=== PATIENT | male | born 1960 | race Caucasian/White ===

== ENCOUNTER 2018-05-14 14:29 | Emergency (ER) | payer OTHER ==
[~2018-05-14] VITALS: Ht 175.3 cm; Wt 91.7 kg
[~2018-05-14 14:29] MED LIST: ASPI81 PO; FLUO-191 PO; FOLI1 PO; LEVO125 PO; PHEN100C23 PO; PHEN60TA15 PO; THERAGRAN M1 TA1 PO
[2018-05-14] MEDS ORDERED: MAGNESIUM SULFATE 2 GM, MVI, ADULT NO.1 WITH VIT K 10 ML, THIAMINE HCL 100 MG, FOLIC AC... IV ONE ×5 (15:00)
[2018-05-14 15:27] LABS: BASOPHILS % (AUTO) 2.1 % (0.0-2.0); EOSINOPHILS % (AUTO) 1.2 % (1.0-6.0); HEMATOCRIT 38.3 % (41-53); HEMOGLOBIN 12.9 g/dL (13.5-17.5); LYMPHOCYTES # (AUTO) 3.5 K/uL (1.0-4.8); MEAN CORPUSCULAR HEMOGLOBIN 31.5 pg (26.0-34.0); MEAN CORPUSCULAR HGB CONC 33.7 G/dL (31.0-37.0); MEAN CORPUSCULAR VOLUME 94 fL (80-100); MONOCYTES # (AUTO) 0.8 K/uL (0.1-1.0); NEUTROPHILS # (AUTO) 4.9 K/uL (1.8-7.7); NEUTROPHILS % (AUTO) 51.7 % (40.0-70.0); PLATELET COUNT (AUTO) 237 K/uL (150-450); RED BLOOD CELL COUNT(AUTO) 4.09 MIL/uL (4.50-5.90); RED CELL DISTRIBUTION WIDTH 14.5 % (11.5-14.5)
[2018-05-14 15:34] LABS: ANION GAP 12 mmol/L (8-16); CALCIUM, TOTAL 8.5 mg/dL (8.8-10.5); CARBON DIOXIDE 27 mmol/L (22-29); CHLORIDE 108 mmol/L (98-107); CREATININE 0.84 mg/dL (0.60-1.30); GLOMERULAR FILTR. RATE CALC > 60 mL/min (>60); GLUCOSE,RANDOM 86 mg/dL (70-110); POTASSIUM 3.9 mmol/L (3.5-5.1); SODIUM SERUM 147 mmol/L (136-145); UREA NITROGEN, BLOOD 20 mg/dL (7-18)
[2018-05-14 15:40] LABS: ALANINE AMINOTRANSFERASE 38 U/L (12-78); ALBUMIN 3.5 g/dL (3.4-5.0); ALKALINE PHOSPHATASE 104 U/L (46-116); ASPARTATE AMINOTRANSFERASE 33 U/L (15-37); BILIRUBIN,TOTAL 0.2 mg/dL (0.1-1.0); TOTAL PROTEIN, SERUM 7.2 g/dL (6.4-8.2)
[2018-05-15 02:11] VITALS: BP 147/60
== END 2018-05-15 02:39 | disposition home or self-care (01) ==
LOC: EMS 14:30
DX: F10.129 Alcohol abuse with intoxication, unspecified (principal); F17.210 Nicotine dependence, cigarettes, uncomplicated; Z59.0 Homelessness; Z88.0 Allergy status to penicillin; Z79.82 Long term (current) use of aspirin; Y90.8 Blood alcohol level of 240 mg/100 ml or more
CPT/HCPCS: 36415; 80053; 85025; 99283; G0480; J3411; J3475; J3490 ×2; J7030

== ENCOUNTER 2018-06-15 19:02 | Emergency (ER) | payer OTHER ==
[~2018-06-15] VITALS: Ht 172.7 cm; Wt 81.8 kg
[2018-06-15] MEDS ORDERED: PHENY100 PO (19:18)
[2018-06-15 20:47] LABS: BASOPHILS % (AUTO) 1.4 % (0.0-2.0); EOSINOPHILS % (AUTO) 3.4 % (1.0-6.0); HEMATOCRIT 35.8 % (41-53); HEMOGLOBIN 11.8 g/dL (13.5-17.5); LYMPHOCYTES # (AUTO) 2.8 K/uL (1.0-4.8); MEAN CORPUSCULAR HEMOGLOBIN 30.7 pg (26.0-34.0); MEAN CORPUSCULAR VOLUME 93 fL (80-100); MONOCYTES # (AUTO) 0.5 K/uL (0.1-1.0); MONOCYTES % (AUTO) 4.9 % (2.0-9.0); NEUTROPHILS # (AUTO) 7.2 K/uL (1.8-7.7); NEUTROPHILS % (AUTO) 65.3 % (40.0-70.0); PLATELET COUNT (AUTO) 190 K/uL (150-450); RED BLOOD CELL COUNT(AUTO) 3.85 MIL/uL (4.50-5.90); RED CELL DISTRIBUTION WIDTH 15.2 % (11.5-14.5)
[2018-06-15 20:58] LABS: ANION GAP 14 mmol/L (8-16); CALCIUM, TOTAL 8.6 mg/dL (8.8-10.5); CARBON DIOXIDE 22 mmol/L (22-29); CHLORIDE 104 mmol/L (98-107); CREATININE 1.03 mg/dL (0.60-1.30); GLOMERULAR FILTR. RATE CALC > 60 mL/min (>60); GLUCOSE,RANDOM 90 mg/dL (70-110); SODIUM SERUM 140 mmol/L (136-145); UREA NITROGEN, BLOOD 11 mg/dL (7-18)
[2018-06-15 21:04] LABS: ALANINE AMINOTRANSFERASE 15 U/L (12-78); ALKALINE PHOSPHATASE 106 U/L (46-116); ASPARTATE AMINOTRANSFERASE 23 U/L (15-37); BILIRUBIN,TOTAL 0.2 mg/dL (0.1-1.0); PHENYTOIN (DILANTIN) 0.6 mcg/mL (10.0-20.0); TOTAL PROTEIN, SERUM 7.1 g/dL (6.4-8.2)
[2018-06-15] MEDS ORDERED: PHENYTOIN SODIUM 500 MG in SODIUM CHLORIDE 0.9% 100 ML IV ONE (21:45)
[2018-06-15] MEDS ORDERED: SILVER SULFADIAZINE 1% 25 GM CREAM TP ONE (21:45)
[2018-06-15] MEDS ORDERED: SODIUM CHLORIDE 0.9% 1,000 ML IV ONE (21:45)
[2018-06-15 21:58] LABS: APPEARANCE,URINE CLEAR (CLEAR); BILIRUBIN,URINE NEGATIVE (NEGATIVE); GLUCOSE, URINE (UA) NEGATIVE (NEGATIVE); KETONES,URINE NEGATIVE (NEGATIVE); LEUKOCYTE ESTERASE ,URINE NEGATIVE (NEGATIVE); NITRATE,URINE NEGATIVE (NEGATIVE); OCCULT BLOOD,URINE NEGATIVE (NEGATIVE); PH,URINE 5.5 (5.0-8.0); PROTEIN,URINE NEGATIVE (NEGATIVE); UROBILINOGEN,URINE 0.2 mg/dL (<=1.0)
[2018-06-15 22:03] LABS: AMPHET/METH SCREEN,URINE NEGATIVE (NEGATIVE); BARBITURATE SCREEN, URINE NEGATIVE (NEGATIVE); BENZODIAZEPINES SCREEN,URINE NEGATIVE (NEGATIVE); CANNABINOID SCREEN,URINE NEGATIVE (NEGATIVE); COCAINE SCREEN,URINE NEGATIVE (NEGATIVE); METHADONE SCREEN, URINE NEGATIVE (NEGATIVE); OPIATE SCREEN,URINE NEGATIVE (NEGATIVE)
[2018-06-15 22:04] LABS: PHENCYCLIDINE SCREEN,URINE NEGATIVE (NEGATIVE)
[2018-06-16] MEDS ORDERED: KETOROLAC TROMETHAMINE 30 MG/ML VIAL IVP ONE (01:30)
[2018-06-16] MEDS ORDERED: KETOROLAC TROMETHAMINE 60 MG/2 ML VIAL IM ONE (01:45)
[2018-06-16 05:38] VITALS: BP 129/68
== END 2018-06-16 05:51 | disposition home or self-care (01) ==
LOC: EMS 19:03
DX: G40.909 Epilepsy, unspecified, not intractable, without status epilepticus (principal); R45.851 Suicidal ideations; F10.129 Alcohol abuse with intoxication, unspecified; L55.0 Sunburn of first degree; F17.210 Nicotine dependence, cigarettes, uncomplicated; Z59.0 Homelessness; Z88.0 Allergy status to penicillin; Z79.82 Long term (current) use of aspirin
CPT/HCPCS: 36415; 80053; 80185; 80307; 81003; 85025; 93005; 96365; 96372; 99285; G0480; J1165; J1885; J7030; J7050

== ENCOUNTER 2019-01-03 15:12 | Inpatient (IN) | payer MEDICAID ==
[~2019-01-03] VITALS: Ht 172.7 cm; Wt 82.5 kg
[~2019-01-03 15:12] MED LIST changes: -PHEN100C23 PO; +PHENY100 PO
[2019-01-03 18:44] VITALS: BP 141/89
[2019-01-03] MEDS ORDERED: LORazepam 2 MG TABLET PO PRN (19:00)
[2019-01-03] MEDS ORDERED: ZOLPIDEM TARTRATE 10 MG TABLET PO PRN (19:00)
[2019-01-03] MEDS ORDERED: OLANZapine 5 MG RAPDIS TABLET PO PRN (19:00)
[2019-01-03] MEDS ORDERED: INFLUENZA VIRUS VACCINE QVS 2019-20 (3YR+)/PF 60 MCG/0.5 ML SYRINGE IM ONE (20:30)
[2019-01-03 20:35] VITALS: BP 141/79
[2019-01-04] VITALS (9 sets, daily range): BP systolic 130–177; BP diastolic 60–98
[2019-01-04 08:08] LABS: BASOPHILS % (AUTO) 1.2 % (0.0-2.0); EOSINOPHILS % (AUTO) 1.6 % (1.0-6.0); HEMATOCRIT 48.2 % (41-53); HEMOGLOBIN 16.3 g/dL (13.5-17.5); LYMPHOCYTES % (AUTO) 27.9 % (22.0-44.0); MEAN CORPUSCULAR HEMOGLOBIN 32.7 pg (26.0-34.0); MEAN CORPUSCULAR HGB CONC 33.9 G/dL (31.0-37.0); MEAN CORPUSCULAR VOLUME 96 fL (80-100); MONOCYTES # (AUTO) 0.4 K/uL (0.1-1.0); MONOCYTES % (AUTO) 5.3 % (2.0-9.0); NEUTROPHILS # (AUTO) 4.5 K/uL (1.8-7.7); PLATELET COUNT (AUTO) 162 K/uL (150-450); RED CELL DISTRIBUTION WIDTH 17.1 % (11.5-14.5)
[2019-01-04 08:31] LABS: ALBUMIN 3.5 g/dL (3.4-5.0); BILIRUBIN,TOTAL 0.5 mg/dL (0.1-1.0); CALCIUM, TOTAL 9.1 mg/dL (8.8-10.5); CHOL/HDL RATIO 4.3 (4.2-7.3); CREATININE 1.28 mg/dL (0.60-1.30); FREE T4 (FREE THYROXINE) 0.13 ng/dL (0.76-1.46); POTASSIUM 3.9 mmol/L (3.5-5.1); TOTAL PROTEIN, SERUM 7.7 g/dL (6.4-8.2)
[2019-01-04] MEDS ORDERED: FLUoxetine HCL 20 MG CAPSULE PO SCH (09:00)
[2019-01-04 09:53] LABS: THYROID STIMULATING HORMONE 235.84 uIU/mL (0.36-3.74)
[2019-01-04] MEDS ORDERED: LEVOTHYROXINE SODIUM 125 MCG TABLET PO SCH (13:00)
[2019-01-04] MEDS ORDERED: MAGNESIUM HYDROXIDE SUSPENSION 30 ML UDCUP PO PRN (13:30)
[2019-01-04] MEDS ORDERED: PROMETHAZINE HCL 25 MG TABLET PO PRN (13:30)
[2019-01-04] MEDS ORDERED: DIAZEPAM 10 MG TABLET PO ONE (13:30)
[2019-01-04] MEDS ORDERED: MAG HYDROX/AL HYDROX/SIMETH ES 30 ML SUSPENSION UDCUP PO PRN (13:30)
[2019-01-04] MEDS ORDERED: CYANOCOBALAMIN 1,000 MCG/ML VIAL IM ONE (13:30)
[2019-01-04] MEDS ORDERED: LOPERAMIDE HCL 2 MG CAPSULE PO PRN (13:30)
[2019-01-04] MEDS ORDERED: GuaiFENesin/D-METHORPHAN [SUGAR-FREE] 200-20MG/10 ML SYRUP UDCUP PO PRN (13:30)
[2019-01-04] MEDS ORDERED: ACETAMINOPHEN 325 MG TABLET PO PRN (13:30)
[2019-01-04] MEDS ORDERED: DIAZEPAM 10 MG TABLET PO PRN (13:30)
[2019-01-04] MEDS ORDERED: TUBERCULIN, PURIFIED PROTEIN DERIVATIVE 5 TU/0.1 ML SYRINGE ID ONE (13:30)
[2019-01-04] MEDS ORDERED: HydrOXYzine PAMOATE 50 MG CAPSULE PO PRN (13:30)
[2019-01-04] MEDS: CloNIDine HCL 0.1 MG TABLET PO SCH (16:23)
[2019-01-04] MEDS: THIAMINE HCL 100 MG TABLET PO SCH (16:23)
[2019-01-04] MEDS: GABAPENTIN 300 MG CAPSULE PO SCH ×2 (20:34→21:35)
[2019-01-04] MEDS ORDERED: SERTRALINE HCL 50 MG TABLET PO SCH (21:00)
[2019-01-04] MEDS ORDERED: DIVALPROEX SODIUM 500 MG ER TABLET PO SCH (21:00)
[2019-01-05 00:30] VITALS: BP 146/72
[2019-01-05 04:30] VITALS: BP 142/70
[2019-01-05 05:12] VITALS: BP 146/72
[2019-01-05] MEDS ORDERED: DIAZEPAM 10 MG TABLET PO PRN (07:00)
[2019-01-05] MEDS ORDERED: ALBUTEROL SULFATE HFA 90 MCG/PUFF 8 GM INHALER IH PRN (08:00)
[2019-01-05 08:05] VITALS: BP 131/82
[2019-01-05] MEDS: THIAMINE HCL 100 MG TABLET PO SCH (08:25)
[2019-01-05] MEDS: DIAZEPAM 10 MG TABLET PO SCH ×2 (08:25→12:25)
[2019-01-05] MEDS: CloNIDine HCL 0.1 MG TABLET PO SCH (08:25)
[2019-01-05] MEDS: GABAPENTIN 300 MG CAPSULE PO SCH ×2 (08:25→12:25)
[2019-01-05 08:31] VITALS: BP 131/82
[2019-01-05] MEDS ORDERED: NALTREXONE HCL 50 MG TABLET PO SCH (09:00)
[2019-01-05] MEDS ORDERED: FOLIC ACID 1 MG TABLET PO SCH (09:00)
[2019-01-05] MEDS ORDERED: MULTIVITAMINS WITH MINERALS, THERAPEUTIC TABLET PO SCH (09:00)
[2019-01-05 13:21] VITALS: BP 138/78
[2019-01-07] MEDS ORDERED: DIAZEPAM 5 MG TABLET PO PRN (07:00)
[2019-01-07] MEDS ORDERED: DIAZEPAM 5 MG TABLET PO SCH (09:00)
[2019-01-07] MEDS ORDERED: LOPERAMIDE HCL 2 MG CAPSULE PO PRN (13:30)
[2019-01-08] MEDS ORDERED: DIAZEPAM 5 MG TABLET PO PRN (07:00)
== END 2019-01-05 15:00 | disposition still patient (30) | DRG 751 ==
LOC: B2S 20:22 → UNDODISIN 01-06 15:00
PROVIDERS: ADMIT Psychiatry & Neurology Psychiatry; ATTEND Psychiatry & Neurology Psychiatry
DX: F33.2 Major depressive disorder, recurrent severe without psychotic features (principal); F20.9 Schizophrenia, unspecified; G40.409 Other generalized epilepsy and epileptic syndromes, not intractable, without status epilepticus; E03.9 Hypothyroidism, unspecified; F17.210 Nicotine dependence, cigarettes, uncomplicated; F15.90 Other stimulant use, unspecified, uncomplicated; Z91.19 Patient's noncompliance with other medical treatment and regimen; Z59.0 Homelessness; Z28.21 Immunization not carried out because of patient refusal; Z88.0 Allergy status to penicillin
CPT/HCPCS: 83036; 84439; 84443; 87081; J3420; J3535

== ENCOUNTER 2019-01-05 14:29 | Inpatient (IN) | payer MEDICAID, OTHER ==
[~2019-01-05] VITALS: Ht 172.7 cm; Wt 84.3 kg
[2019-01-05] MEDS ORDERED: ASPIRIN 81 MG CHEWABLE TABLET PO ONE (15:00)
[2019-01-05 16:01] LABS: HEMATOCRIT 50.7 % (41-53); HEMOGLOBIN 16.9 g/dL (13.5-17.5); MEAN CORPUSCULAR HEMOGLOBIN 32.2 pg (26.0-34.0); MEAN CORPUSCULAR HGB CONC 33.3 G/dL (31.0-37.0); MEAN CORPUSCULAR VOLUME 97 fL (80-100); RED BLOOD CELL COUNT(AUTO) 5.23 MIL/uL (4.50-5.90); RED CELL DISTRIBUTION WIDTH 17.1 % (11.5-14.5)
[2019-01-05 16:05] LABS: ANION GAP 4 mmol/L (8-16); CALCIUM, TOTAL 9.4 mg/dL (8.8-10.5); CARBON DIOXIDE 29 mmol/L (22-29); CHLORIDE 103 mmol/L (98-107); CREATININE 1.23 mg/dL (0.60-1.30); GLOMERULAR FILTR. RATE CALC > 60 mL/min (>60); GLUCOSE,RANDOM 99 mg/dL (70-110); POTASSIUM 4.9 mmol/L (3.5-5.1); SODIUM SERUM 136 mmol/L (136-145); UREA NITROGEN, BLOOD 22 mg/dL (7-18)
[2019-01-05 16:10] LABS: APPEARANCE,URINE CLEAR (CLEAR); BILIRUBIN,URINE NEGATIVE (NEGATIVE); GLUCOSE, URINE (UA) NEGATIVE (NEGATIVE); KETONES,URINE NEGATIVE (NEGATIVE); LEUKOCYTE ESTERASE ,URINE NEGATIVE (NEGATIVE); NITRATE,URINE NEGATIVE (NEGATIVE); OCCULT BLOOD,URINE NEGATIVE (NEGATIVE); PROTEIN,URINE NEGATIVE (NEGATIVE); UROBILINOGEN,URINE 0.2 mg/dL (<=1.0)
[2019-01-05 16:12] LABS: AMPHET/METH SCREEN,URINE NEGATIVE (NEGATIVE); BARBITURATE SCREEN, URINE NEGATIVE (NEGATIVE); BENZODIAZEPINES SCREEN,URINE POSITIVE (NEGATIVE); CANNABINOID SCREEN,URINE NEGATIVE (NEGATIVE); COCAINE SCREEN,URINE NEGATIVE (NEGATIVE); METHADONE SCREEN, URINE NEGATIVE (NEGATIVE); OPIATE SCREEN,URINE NEGATIVE (NEGATIVE)
[2019-01-05 16:16] LABS: PHENCYCLIDINE SCREEN,URINE NEGATIVE (NEGATIVE)
[2019-01-05 16:22] LABS: BAND NEUTROPHILS % (MANUAL) 2 % (0-5); BASOPHILS % (MANUAL) 2 % (0-2); EOSINOPHILS % (MANUAL) 3 % (1-6); LYMPHOCYTES % (MANUAL) 21 % (22-44); MONOCYTES % (MANUAL) 2 % (2-9); REACTIVE LYMPHOCYTES 13 % (0-0); SEGMENTED NEUTROPHILS % 57 % (40-70)
[2019-01-05 16:23] LABS: PLATELET COUNT (AUTO) 111 K/uL (150-450); PLATELET MORPHOLOGY COMMENT DECREASED
[2019-01-05 16:26] LABS: B-TYPE NATRIURETIC PEPTIDE 416 pg/mL (0-100)
[2019-01-05 16:30] LABS: ALANINE AMINOTRANSFERASE 22 U/L (12-78); ALBUMIN 3.5 g/dL (3.4-5.0); ALKALINE PHOSPHATASE 98 U/L (46-116); ASPARTATE AMINOTRANSFERASE 36 U/L (15-37); BILIRUBIN,TOTAL 0.5 mg/dL (0.1-1.0); CREATINE KINASE, TOTAL ONLY 194 U/L (39-308); PHENYTOIN (DILANTIN) 0.9 mcg/mL (10.0-20.0); TOTAL PROTEIN, SERUM 7.5 g/dL (6.4-8.2)
[2019-01-05 16:35] LABS: PHENOBARBITAL < 1 mcg/mL (15-40)
[2019-01-05] MEDS ORDERED: ACETAMINOPHEN 325 MG TABLET PO PRN ×2 (18:45→20:45)
[2019-01-05] MEDS ORDERED: ONDANSETRON HCL 4 MG/2 ML VIAL IVP PRN ×2 (18:45→20:45)
[2019-01-05] MEDS ORDERED: 0.9% SODIUM CHLORIDE 10 ML SYRINGE IVP PRN (18:45)
[2019-01-05 19:30] VITALS: BP 132/69
[2019-01-05] MEDS ORDERED: BISACODYL 10 MG RECTAL RECTAL SUPPOSITORY PR PRN (20:45)
[2019-01-05] MEDS ORDERED: MAGNESIUM HYDROXIDE SUSPENSION 30 ML UDCUP PO PRN (20:45)
[2019-01-05] MEDS ORDERED: ZOLPIDEM TARTRATE 5 MG TABLET PO PRN (20:45)
[2019-01-05] MEDS: DOCUSATE SODIUM 100 MG CAPSULE PO SCH (21:55)
[2019-01-05] MEDS: ASPIRIN 81 MG CHEWABLE TABLET PO SCH (21:56)
[2019-01-05] MEDS: PHENYTOIN SODIUM 100 MG ER CAPSULE PO SCH (21:56)
[2019-01-05] MEDS ORDERED: PNEUMOCOCCAL VACCINE POLYVALENT 0.5 ML VIAL [PPSV23] IM ONE (23:15)
[2019-01-05] MEDS ORDERED: INFLUENZA VIRUS VACCINE QVS 2019-20 (3YR+)/PF 60 MCG/0.5 ML SYRINGE IM ONE (23:15)
[2019-01-06 00:03] VITALS: BP 128/59
[2019-01-06 04:43] VITALS: BP 140/66
[2019-01-06] MEDS: LEVOTHYROXINE SODIUM 125 MCG TABLET PO SCH (06:06)
[2019-01-06 07:16] LABS: HEMOGLOBIN A1C 5.1 % (4.5-6.2)
[2019-01-06 07:32] LABS: CHOL/HDL RATIO 4.4 (4.2-7.3); FREE T4 (FREE THYROXINE) 0.23 ng/dL (0.76-1.46)
[2019-01-06 07:58] LABS: THYROID STIMULATING HORMONE 210.76 uIU/mL (0.36-3.74)
[2019-01-06] MEDS: HEPARIN SODIUM,PORCINE 5,000 UNITS/ML VIAL SQ SCH ×4 (08:00→23:48)
[2019-01-06 08:27] VITALS: BP 151/81
[2019-01-06] MEDS: MULTIVITAMINS WITH MINERALS, THERAPEUTIC TABLET PO SCH (09:05)
[2019-01-06] MEDS: ASPIRIN 81 MG CHEWABLE TABLET PO SCH ×2 (09:05→20:29)
[2019-01-06] MEDS: DOCUSATE SODIUM 100 MG CAPSULE PO SCH ×2 (09:05→20:29)
[2019-01-06] MEDS: PANTOPRAZOLE SODIUM 40 MG DR TABLET PO SCH (09:05)
[2019-01-06] MEDS: FOLIC ACID 1 MG TABLET PO SCH (09:05)
[2019-01-06] MEDS ORDERED: LEVOTHYROXINE SODIUM 125 MCG TABLET PO SCH (10:15)
[2019-01-06] MEDS: SODIUM CHLORIDE 0.9% 1,000 ML IV SCH (13:34)
[2019-01-06 16:25] VITALS: BP 158/74
[2019-01-06 19:43] VITALS: BP 168/76
[2019-01-06] MEDS: PHENYTOIN SODIUM 100 MG ER CAPSULE PO SCH (20:29)
[2019-01-06 23:43] VITALS: BP 141/84
[2019-01-07] MEDS: SODIUM CHLORIDE 0.9% 1,000 ML IV SCH (02:33)
[2019-01-07 03:13] VITALS: BP 153/76
[2019-01-07] MEDS: LEVOTHYROXINE SODIUM 125 MCG TABLET PO SCH (06:19)
[2019-01-07 06:24] LABS: CHOL/HDL RATIO 4.4 (4.2-7.3)
[2019-01-07 07:40] VITALS: BP 158/82
[2019-01-07] MEDS: HEPARIN SODIUM,PORCINE 5,000 UNITS/ML VIAL SQ SCH ×2 (08:00→16:00)
[2019-01-07] MEDS: DOCUSATE SODIUM 100 MG CAPSULE PO SCH ×2 (09:00→21:04)
[2019-01-07] MEDS: ASPIRIN 81 MG CHEWABLE TABLET PO SCH ×2 (09:27→21:03)
[2019-01-07] MEDS: SERTRALINE HCL 50 MG TABLET PO SCH (09:28)
[2019-01-07] MEDS: PANTOPRAZOLE SODIUM 40 MG DR TABLET PO SCH (09:28)
[2019-01-07] MEDS: MULTIVITAMINS WITH MINERALS, THERAPEUTIC TABLET PO SCH (09:28)
[2019-01-07] MEDS: FOLIC ACID 1 MG TABLET PO SCH (09:28)
[2019-01-07 13:39] VITALS: BP 142/54
[2019-01-07] MEDS: ATORVASTATIN CALCIUM 20 MG TABLET PO SCH (14:03)
[2019-01-07] MEDS: METOPROLOL SUCCINATE 25 MG ER TABLET PO SCH (14:03)
[2019-01-07] MEDS: IPRATROPIUM BROMIDE 0.5 MG/2.5 ML NEB SOLUTION NEB SCH ×3 (15:17→22:39)
[2019-01-07] MEDS: ALBUTEROL SULFATE 2.5 MG/0.5 ML NEB SOLUTION NEB SCH ×3 (15:17→22:39)
[2019-01-07 16:22] VITALS: BP 142/56
[2019-01-07] MEDS ORDERED: DIAZEPAM 5 MG TABLET PO ONE (17:30)
[2019-01-07 19:37] VITALS: BP 136/69
[2019-01-07] MEDS: DIAZEPAM 5 MG TABLET PO PRN (21:04)
[2019-01-07] MEDS: PHENYTOIN SODIUM 100 MG ER CAPSULE PO SCH (21:04)
[2019-01-07 23:47] VITALS: BP 153/71
[2019-01-08] MEDS: ALBUTEROL SULFATE 2.5 MG/0.5 ML NEB SOLUTION NEB SCH ×6 (04:09→23:17)
[2019-01-08] MEDS: IPRATROPIUM BROMIDE 0.5 MG/2.5 ML NEB SOLUTION NEB SCH ×6 (04:09→23:17)
[2019-01-08 04:34] VITALS: BP 141/70
[2019-01-08] MEDS: LEVOTHYROXINE SODIUM 125 MCG TABLET PO SCH (05:44)
[2019-01-08] MEDS: ASPIRIN 81 MG CHEWABLE TABLET PO SCH ×2 (05:45→21:10)
[2019-01-08] MEDS: DIAZEPAM 5 MG TABLET PO PRN (05:45)
[2019-01-08 08:00] VITALS: BP 138/74
[2019-01-08] MEDS: HEPARIN SODIUM,PORCINE 5,000 UNITS/ML VIAL SQ SCH ×3 (08:00→15:44)
[2019-01-08] MEDS: SERTRALINE HCL 50 MG TABLET PO SCH (08:56)
[2019-01-08] MEDS: DOCUSATE SODIUM 100 MG CAPSULE PO SCH ×2 (08:56→21:10)
[2019-01-08] MEDS: FOLIC ACID 1 MG TABLET PO SCH (08:56)
[2019-01-08] MEDS: PANTOPRAZOLE SODIUM 40 MG DR TABLET PO SCH (08:56)
[2019-01-08] MEDS: MULTIVITAMINS WITH MINERALS, THERAPEUTIC TABLET PO SCH (08:56)
[2019-01-08] MEDS: METOPROLOL SUCCINATE 25 MG ER TABLET PO SCH (08:56)
[2019-01-08] MEDS: ATORVASTATIN CALCIUM 20 MG TABLET PO SCH (08:57)
[2019-01-08 12:21] VITALS: BP 133/70
[2019-01-08 16:56] VITALS: BP 145/83
[2019-01-08 19:36] VITALS: BP 153/82
[2019-01-08] MEDS: PHENYTOIN SODIUM 100 MG ER CAPSULE PO SCH (21:10)
[2019-01-09] VITALS (7 sets, daily range): BP systolic 139–149; BP diastolic 72–89
[2019-01-09] MEDS: ALBUTEROL SULFATE 2.5 MG/0.5 ML NEB SOLUTION NEB SCH ×6 (03:16→23:11)
[2019-01-09] MEDS: IPRATROPIUM BROMIDE 0.5 MG/2.5 ML NEB SOLUTION NEB SCH ×6 (03:16→23:11)
[2019-01-09] MEDS: LEVOTHYROXINE SODIUM 125 MCG TABLET PO SCH (05:56)
[2019-01-09 07:01] LABS: BASOPHILS % (AUTO) 3.6 % (0.0-2.0); EOSINOPHILS % (AUTO) 2.2 % (1.0-6.0); HEMATOCRIT 44.2 % (41-53); LYMPHOCYTES # (AUTO) 1.9 K/uL (1.0-4.8); LYMPHOCYTES % (AUTO) 32.2 % (22.0-44.0); MEAN CORPUSCULAR HEMOGLOBIN 32.7 pg (26.0-34.0); MEAN CORPUSCULAR HGB CONC 33.9 G/dL (31.0-37.0); MEAN CORPUSCULAR VOLUME 97 fL (80-100); MONOCYTES # (AUTO) 0.5 K/uL (0.1-1.0); NEUTROPHILS # (AUTO) 3.2 K/uL (1.8-7.7); PLATELET COUNT (AUTO) 161 K/uL (150-450); RED BLOOD CELL COUNT(AUTO) 4.57 MIL/uL (4.50-5.90); RED CELL DISTRIBUTION WIDTH 16.1 % (11.5-14.5)
[2019-01-09 07:17] LABS: ALANINE AMINOTRANSFERASE 18 U/L (12-78); ALBUMIN 3.5 g/dL (3.4-5.0); ALKALINE PHOSPHATASE 87 U/L (46-116); ANION GAP 6 mmol/L (8-16); ASPARTATE AMINOTRANSFERASE 22 U/L (15-37); BILIRUBIN,TOTAL 0.4 mg/dL (0.1-1.0); CALCIUM, TOTAL 8.8 mg/dL (8.8-10.5); CARBON DIOXIDE 29 mmol/L (22-29); CHLORIDE 103 mmol/L (98-107); CREATININE 1.14 mg/dL (0.60-1.30); GLOMERULAR FILTR. RATE CALC > 60 mL/min (>60); GLUCOSE,RANDOM 84 mg/dL (70-110); POTASSIUM 4.6 mmol/L (3.5-5.1); SODIUM SERUM 138 mmol/L (136-145); TOTAL PROTEIN, SERUM 7.3 g/dL (6.4-8.2); UREA NITROGEN, BLOOD 18 mg/dL (7-18)
[2019-01-09] MEDS: FOLIC ACID 1 MG TABLET PO SCH (08:28)
[2019-01-09] MEDS: DOCUSATE SODIUM 100 MG CAPSULE PO SCH ×2 (08:28→20:55)
[2019-01-09] MEDS: ASPIRIN 81 MG CHEWABLE TABLET PO SCH ×2 (08:28→20:55)
[2019-01-09] MEDS: ATORVASTATIN CALCIUM 20 MG TABLET PO SCH (08:29)
[2019-01-09] MEDS: METOPROLOL SUCCINATE 25 MG ER TABLET PO SCH (08:29)
[2019-01-09] MEDS: MULTIVITAMINS WITH MINERALS, THERAPEUTIC TABLET PO SCH (08:29)
[2019-01-09] MEDS: PANTOPRAZOLE SODIUM 40 MG DR TABLET PO SCH (08:29)
[2019-01-09] MEDS: SERTRALINE HCL 50 MG TABLET PO SCH (08:30)
[2019-01-09] MEDS: HEPARIN SODIUM,PORCINE 5,000 UNITS/ML VIAL SQ SCH ×4 (08:31→23:12)
[2019-01-09] MEDS: PHENYTOIN SODIUM 100 MG ER CAPSULE PO SCH (20:55)
[2019-01-10] MEDS: DIAZEPAM 5 MG TABLET PO PRN ×2 (01:15→08:40)
[2019-01-10] MEDS: IPRATROPIUM BROMIDE 0.5 MG/2.5 ML NEB SOLUTION NEB SCH ×3 (03:00→11:30)
[2019-01-10] MEDS: ALBUTEROL SULFATE 2.5 MG/0.5 ML NEB SOLUTION NEB SCH ×3 (03:00→11:30)
[2019-01-10 04:41] VITALS: BP 156/69
[2019-01-10] MEDS: LEVOTHYROXINE SODIUM 125 MCG TABLET PO SCH (06:09)
[2019-01-10 07:51] VITALS: BP 153/96
[2019-01-10] MEDS: SERTRALINE HCL 50 MG TABLET PO SCH (08:40)
[2019-01-10] MEDS: DOCUSATE SODIUM 100 MG CAPSULE PO SCH (08:40)
[2019-01-10] MEDS: ATORVASTATIN CALCIUM 20 MG TABLET PO SCH (08:40)
[2019-01-10] MEDS: ASPIRIN 81 MG CHEWABLE TABLET PO SCH (08:40)
[2019-01-10] MEDS: PANTOPRAZOLE SODIUM 40 MG DR TABLET PO SCH (08:40)
[2019-01-10] MEDS: HEPARIN SODIUM,PORCINE 5,000 UNITS/ML VIAL SQ SCH (08:41)
[2019-01-10] MEDS: METOPROLOL SUCCINATE 25 MG ER TABLET PO SCH (08:43)
[2019-01-10] MEDS: FOLIC ACID 1 MG TABLET PO SCH (08:44)
[2019-01-10] MEDS: MULTIVITAMINS WITH MINERALS, THERAPEUTIC TABLET PO SCH (08:44)
[2019-01-10 11:44] VITALS: BP 138/80
== END 2019-01-10 13:30 | DRG 812 ==
LOC: EMS 14:30 → 5N 16:56 → 5S 22:24 → 4E 01-09 21:10
PROVIDERS: ADMIT Internal Medicine; ATTEND Hospitalist
DX: T42.4X1A Poisoning by benzodiazepines, accidental (unintentional), initial encounter (principal); G92 Toxic encephalopathy; I50.21 Acute systolic (congestive) heart failure; K74.60 Unspecified cirrhosis of liver; E03.9 Hypothyroidism, unspecified; G40.909 Epilepsy, unspecified, not intractable, without status epilepticus; R00.1 Bradycardia, unspecified; E78.5 Hyperlipidemia, unspecified; I25.10 Atherosclerotic heart disease of native coronary artery without angina pectoris; J44.9 Chronic obstructive pulmonary disease, unspecified; F32.9 Major depressive disorder, single episode, unspecified; F17.210 Nicotine dependence, cigarettes, uncomplicated; I11.0 Hypertensive heart disease with heart failure; I25.2 Old myocardial infarction; Y92.89 Other specified places as the place of occurrence of the external cause; Z86.73 Personal history of transient ischemic attack (TIA), and cerebral infarction without residual deficits; Z88.0 Allergy status to penicillin; Z79.82 Long term (current) use of aspirin; Z79.899 Other long term (current) drug therapy
CPT/HCPCS: 70450; 83036; 83735; 84439; 84443; 86592; 87081; 93005; 93306; 94640; 97110; 97116; 97162; 97166; 97530; 97535; G0378; G0480; J1644; J3411; J3475; J3490; J7030

== ENCOUNTER 2019-01-10 13:07 | Inpatient (IN) | payer MEDICAID ==
[~2019-01-10] VITALS: Ht 172.7 cm; Wt 73.5 kg
[2019-01-10] MEDS ORDERED: HALOPERIDOL 5 MG TABLET PO PRN (15:15)
[2019-01-10] MEDS ORDERED: LORazepam 2 MG TABLET PO PRN (15:15)
[2019-01-10] MEDS ORDERED: LOPERAMIDE HCL 2 MG CAPSULE PO PRN (16:00)
[2019-01-10] MEDS ORDERED: GuaiFENesin/D-METHORPHAN [SUGAR-FREE] 200-20MG/10 ML SYRUP UDCUP PO PRN (16:00)
[2019-01-10] MEDS ORDERED: PROMETHAZINE HCL 25 MG TABLET PO PRN (16:00)
[2019-01-10] MEDS ORDERED: MAG HYDROX/AL HYDROX/SIMETH ES 30 ML SUSPENSION UDCUP PO PRN (16:00)
[2019-01-10] MEDS ORDERED: GABAPENTIN 300 MG CAPSULE PO PRN (16:00)
[2019-01-10] MEDS ORDERED: MAGNESIUM HYDROXIDE SUSPENSION 30 ML UDCUP PO PRN (16:00)
[2019-01-10] MEDS: GABAPENTIN 300 MG CAPSULE PO SCH (19:46)
[2019-01-10] MEDS: THIAMINE HCL 100 MG TABLET PO SCH (19:46)
[2019-01-11] MEDS ORDERED: INFLUENZA VIRUS VACCINE QVS 2019-20 (3YR+)/PF 60 MCG/0.5 ML SYRINGE IM ONE (07:15)
[2019-01-11] MEDS ORDERED: PNEUMOCOCCAL VACCINE POLYVALENT 0.5 ML VIAL [PPSV23] IM ONE (07:15)
[2019-01-11 09:54] VITALS: BP 127/57
[2019-01-11] MEDS: GABAPENTIN 300 MG CAPSULE PO SCH ×4 (10:30→22:02)
[2019-01-11] MEDS: MULTIVITAMINS WITH MINERALS, THERAPEUTIC TABLET PO SCH (10:32)
[2019-01-11] MEDS: SERTRALINE HCL 50 MG TABLET PO SCH (10:32)
[2019-01-11] MEDS: THIAMINE HCL 100 MG TABLET PO SCH ×2 (10:32→17:14)
[2019-01-11] MEDS: NALTREXONE HCL 50 MG TABLET PO SCH (10:33)
[2019-01-11] MEDS: FOLIC ACID 1 MG TABLET PO SCH (10:33)
[2019-01-11 17:56] VITALS: BP 121/57
[2019-01-11 18:13] VITALS: BP 129/82
[2019-01-11 18:35] LABS: GLUCOMETER DEV NAME(LOC) 3EX.; GLUCOSE,POINT OF CARE 127 MG/DL (70-110)
[2019-01-11 18:50] VITALS: BP 124/58
[2019-01-11] MEDS: ACETAMINOPHEN 325 MG TABLET PO PRN (18:50)
[2019-01-11] MEDS: MECLIZINE HCL 25 MG TABLET PO SCH (22:01)
[2019-01-11] MEDS: DIVALPROEX SODIUM 500 MG ER TABLET PO SCH (22:01)
[2019-01-11] MEDS: PHENYTOIN SODIUM 100 MG ER CAPSULE PO SCH (22:02)
[2019-01-12] MEDS: ZOLPIDEM TARTRATE 10 MG TABLET PO PRN (00:02)
[2019-01-12 00:03] VITALS: BP 115/68
[2019-01-12] MEDS: LEVOTHYROXINE SODIUM 125 MCG TABLET PO SCH (06:47)
[2019-01-12 08:00] VITALS: BP 146/98
[2019-01-12] MEDS: SERTRALINE HCL 50 MG TABLET PO SCH (08:53)
[2019-01-12] MEDS: GABAPENTIN 300 MG CAPSULE PO SCH ×4 (08:53→20:36)
[2019-01-12] MEDS: NALTREXONE HCL 50 MG TABLET PO SCH (08:53)
[2019-01-12] MEDS: MULTIVITAMINS WITH MINERALS, THERAPEUTIC TABLET PO SCH (08:53)
[2019-01-12] MEDS: THIAMINE HCL 100 MG TABLET PO SCH ×2 (08:53→16:27)
[2019-01-12] MEDS: FOLIC ACID 1 MG TABLET PO SCH (08:54)
[2019-01-12 17:00] VITALS: BP 131/85
[2019-01-12] MEDS: DIVALPROEX SODIUM 500 MG ER TABLET PO SCH (20:35)
[2019-01-12] MEDS: PHENYTOIN SODIUM 100 MG ER CAPSULE PO SCH (20:35)
[2019-01-12] MEDS: MECLIZINE HCL 25 MG TABLET PO SCH (20:36)
[2019-01-13 05:51] VITALS: BP 121/52
[2019-01-13] MEDS: LEVOTHYROXINE SODIUM 125 MCG TABLET PO SCH (06:45)
[2019-01-13 08:03] VITALS: BP 129/75
[2019-01-13] MEDS: FOLIC ACID 1 MG TABLET PO SCH (09:43)
[2019-01-13] MEDS: THIAMINE HCL 100 MG TABLET PO SCH ×2 (09:43→16:36)
[2019-01-13] MEDS: NALTREXONE HCL 50 MG TABLET PO SCH (09:43)
[2019-01-13] MEDS: MULTIVITAMINS WITH MINERALS, THERAPEUTIC TABLET PO SCH (09:43)
[2019-01-13] MEDS: SERTRALINE HCL 50 MG TABLET PO SCH (09:44)
[2019-01-13] MEDS: GABAPENTIN 300 MG CAPSULE PO SCH ×4 (09:44→20:38)
[2019-01-13] MEDS: HydrOXYzine PAMOATE 50 MG CAPSULE PO PRN (16:35)
[2019-01-13 16:41] VITALS: BP 139/52
[2019-01-13] MEDS: PHENYTOIN SODIUM 100 MG ER CAPSULE PO SCH (20:38)
[2019-01-13] MEDS: DIVALPROEX SODIUM 500 MG ER TABLET PO SCH (20:38)
[2019-01-13] MEDS: MECLIZINE HCL 25 MG TABLET PO SCH (20:38)
[2019-01-14 05:57] VITALS: BP 127/66
[2019-01-14] MEDS: LEVOTHYROXINE SODIUM 125 MCG TABLET PO SCH (06:42)
[2019-01-14 08:00] VITALS: BP 128/76
[2019-01-14] MEDS: NALTREXONE HCL 50 MG TABLET PO SCH (09:27)
[2019-01-14] MEDS: QUEtiapine FUMARATE 100 MG TABLET PO PRN (09:27)
[2019-01-14] MEDS: MULTIVITAMINS WITH MINERALS, THERAPEUTIC TABLET PO SCH (09:27)
[2019-01-14] MEDS: FOLIC ACID 1 MG TABLET PO SCH (09:27)
[2019-01-14] MEDS: THIAMINE HCL 100 MG TABLET PO SCH ×2 (09:27→16:17)
[2019-01-14] MEDS: GABAPENTIN 300 MG CAPSULE PO SCH ×4 (09:27→20:20)
[2019-01-14] MEDS: SERTRALINE HCL 50 MG TABLET PO SCH (09:28)
[2019-01-14] MEDS ORDERED: DiphenhydrAMINE HCL 50 MG/ML VIAL IM ONE (12:35)
[2019-01-14] MEDS ORDERED: HALOPERIDOL LACTATE 5 MG/ML VIAL IM ONE (12:35)
[2019-01-14] MEDS ORDERED: LORazepam 2 MG/ML VIAL IM ONE (12:35)
[2019-01-14 13:48] VITALS: BP 126/75
[2019-01-14 18:41] VITALS: BP 127/68
[2019-01-14] MEDS: MECLIZINE HCL 25 MG TABLET PO SCH (20:20)
[2019-01-14] MEDS: DIVALPROEX SODIUM 500 MG ER TABLET PO SCH (20:21)
[2019-01-14] MEDS: PHENYTOIN SODIUM 100 MG ER CAPSULE PO SCH (20:21)
[2019-01-15] MEDS: ZOLPIDEM TARTRATE 10 MG TABLET PO PRN (02:44)
[2019-01-15 02:58] VITALS: BP 136/81
[2019-01-15] MEDS: LEVOTHYROXINE SODIUM 125 MCG TABLET PO SCH (06:59)
[2019-01-15 08:20] VITALS: BP 158/71
[2019-01-15] MEDS: QUEtiapine FUMARATE 100 MG TABLET PO PRN (10:08)
[2019-01-15] MEDS: MULTIVITAMINS WITH MINERALS, THERAPEUTIC TABLET PO SCH (10:08)
[2019-01-15] MEDS: HydrOXYzine PAMOATE 50 MG CAPSULE PO PRN (10:08)
[2019-01-15] MEDS: FOLIC ACID 1 MG TABLET PO SCH (10:08)
[2019-01-15] MEDS: GABAPENTIN 300 MG CAPSULE PO SCH ×4 (10:08→20:54)
[2019-01-15] MEDS: NALTREXONE HCL 50 MG TABLET PO SCH (10:08)
[2019-01-15] MEDS: THIAMINE HCL 100 MG TABLET PO SCH ×2 (10:08→17:28)
[2019-01-15] MEDS: SERTRALINE HCL 50 MG TABLET PO SCH (10:08)
[2019-01-15] MEDS: DIVALPROEX SODIUM 500 MG ER TABLET PO SCH (20:54)
[2019-01-15] MEDS: PHENYTOIN SODIUM 100 MG ER CAPSULE PO SCH (20:54)
[2019-01-15] MEDS: MECLIZINE HCL 25 MG TABLET PO SCH (20:54)
[2019-01-16 03:28] VITALS: BP 121/76
[2019-01-16] MEDS: LEVOTHYROXINE SODIUM 125 MCG TABLET PO SCH (07:02)
[2019-01-16 08:00] VITALS: BP 144/74
[2019-01-16] MEDS: NALTREXONE HCL 50 MG TABLET PO SCH (09:35)
[2019-01-16] MEDS: MULTIVITAMINS WITH MINERALS, THERAPEUTIC TABLET PO SCH (09:35)
[2019-01-16] MEDS: THIAMINE HCL 100 MG TABLET PO SCH ×2 (09:35→16:47)
[2019-01-16] MEDS: SERTRALINE HCL 50 MG TABLET PO SCH (09:35)
[2019-01-16] MEDS: FOLIC ACID 1 MG TABLET PO SCH (09:35)
[2019-01-16] MEDS: QUEtiapine FUMARATE 100 MG TABLET PO PRN (09:35)
[2019-01-16] MEDS: GABAPENTIN 300 MG CAPSULE PO SCH ×4 (09:36→20:28)
[2019-01-16 18:00] VITALS: BP 115/59
[2019-01-16] MEDS: MECLIZINE HCL 25 MG TABLET PO SCH (20:28)
[2019-01-16] MEDS: PHENYTOIN SODIUM 100 MG ER CAPSULE PO SCH (20:28)
[2019-01-16] MEDS: DIVALPROEX SODIUM 500 MG ER TABLET PO SCH (20:28)
[2019-01-17] MEDS: ZOLPIDEM TARTRATE 10 MG TABLET PO PRN ×2 (01:15→09:06)
[2019-01-17 01:19] VITALS: BP 130/86
[2019-01-17] MEDS: LEVOTHYROXINE SODIUM 125 MCG TABLET PO SCH (06:40)
[2019-01-17 06:59] LABS: FREE T4 (FREE THYROXINE) 0.59 ng/dL (0.76-1.46); THYROID STIMULATING HORMONE 58.9 uIU/mL (0.36-3.74)
[2019-01-17 08:37] VITALS: BP 112/56
[2019-01-17] MEDS: MULTIVITAMINS WITH MINERALS, THERAPEUTIC TABLET PO SCH (09:05)
[2019-01-17] MEDS: SERTRALINE HCL 50 MG TABLET PO SCH (09:05)
[2019-01-17] MEDS: THIAMINE HCL 100 MG TABLET PO SCH ×2 (09:06→16:21)
[2019-01-17] MEDS: GABAPENTIN 300 MG CAPSULE PO SCH ×4 (09:06→20:25)
[2019-01-17] MEDS: FOLIC ACID 1 MG TABLET PO SCH (09:06)
[2019-01-17] MEDS: NALTREXONE HCL 50 MG TABLET PO SCH (09:06)
[2019-01-17 16:11] VITALS: BP 137/79
[2019-01-17] MEDS: PHENYTOIN SODIUM 100 MG ER CAPSULE PO SCH (20:25)
[2019-01-17] MEDS: MECLIZINE HCL 25 MG TABLET PO SCH (20:26)
[2019-01-17] MEDS: DIVALPROEX SODIUM 500 MG ER TABLET PO SCH (20:26)
[2019-01-18] MEDS: LEVOTHYROXINE SODIUM 125 MCG TABLET PO SCH (06:49)
[2019-01-18 08:04] VITALS: BP 124/63
[2019-01-18] MEDS: THIAMINE HCL 100 MG TABLET PO SCH ×2 (08:35→16:29)
[2019-01-18] MEDS: SERTRALINE HCL 50 MG TABLET PO SCH (08:36)
[2019-01-18] MEDS: NALTREXONE HCL 50 MG TABLET PO SCH (08:36)
[2019-01-18] MEDS: QUEtiapine FUMARATE 100 MG TABLET PO PRN (08:36)
[2019-01-18] MEDS: GABAPENTIN 300 MG CAPSULE PO SCH ×4 (08:36→20:27)
[2019-01-18] MEDS: MULTIVITAMINS WITH MINERALS, THERAPEUTIC TABLET PO SCH (08:37)
[2019-01-18] MEDS: FOLIC ACID 1 MG TABLET PO SCH (08:37)
[2019-01-18 16:24] VITALS: BP 119/82
[2019-01-18] MEDS: MECLIZINE HCL 25 MG TABLET PO SCH (20:27)
[2019-01-18] MEDS: PHENYTOIN SODIUM 100 MG ER CAPSULE PO SCH (20:27)
[2019-01-18] MEDS: DIVALPROEX SODIUM 500 MG ER TABLET PO SCH (20:28)
[2019-01-19] MEDS: ZOLPIDEM TARTRATE 10 MG TABLET PO PRN (01:01)
[2019-01-19] MEDS ORDERED: LEVOTHYROXINE SODIUM 150 MCG TABLET PO SCH (07:00)
[2019-01-19] MEDS: NALTREXONE HCL 50 MG TABLET PO SCH (08:52)
[2019-01-19] MEDS: THIAMINE HCL 100 MG TABLET PO SCH ×2 (08:52→16:18)
[2019-01-19] MEDS: GABAPENTIN 300 MG CAPSULE PO SCH ×3 (08:52→16:18)
[2019-01-19] MEDS: MULTIVITAMINS WITH MINERALS, THERAPEUTIC TABLET PO SCH (08:53)
[2019-01-19] MEDS: FOLIC ACID 1 MG TABLET PO SCH (08:53)
[2019-01-19] MEDS ORDERED: SERTRALINE HCL 100 MG TABLET PO SCH (09:00)
[2019-01-19 10:45] VITALS: BP 126/70
[2019-01-19] MEDS: ACETAMINOPHEN 325 MG TABLET PO PRN (11:16)
[2019-01-19] MEDS ORDERED: SERT100T12 PO (13:12)
[2019-01-19] MEDS ORDERED: GABA-531 PO (13:12)
[2019-01-19] MEDS ORDERED: NALT50TA PO (13:12)
[2019-01-19] MEDS ORDERED: DIVA500T52 PO (13:12)
[2019-01-19] MEDS ORDERED: PHENY100 PO (13:12)
[2019-01-19] MEDS ORDERED: MECL-111 PO (13:47)
[2019-01-19] MEDS ORDERED: LEVO150 PO (13:47)
== END 2019-01-19 16:50 | disposition home or self-care (01) | DRG 751 ==
LOC: 3EI 13:07
PROVIDERS: ADMIT Psychiatry & Neurology Psychiatry; ATTEND Psychiatry & Neurology Psychiatry
DX: F33.2 Major depressive disorder, recurrent severe without psychotic features (principal); F10.26 Alcohol dependence with alcohol-induced persisting amnestic disorder; E03.9 Hypothyroidism, unspecified; J44.9 Chronic obstructive pulmonary disease, unspecified; Z91.19 Patient's noncompliance with other medical treatment and regimen; Z28.21 Immunization not carried out because of patient refusal; Z81.1 Family history of alcohol abuse and dependence
CPT/HCPCS: 84439; 84443; 87081; 97116; 97163; 97165; 97530; 97535; J1200; J1630; J2060

== ENCOUNTER 2019-01-20 14:28 | Inpatient (IN) | payer MEDICAID, OTHER ==
[~2019-01-20] VITALS: Ht 172.7 cm; Wt 82.2 kg
[~2019-01-20 14:28] MED LIST changes: +DIVA500T52 PO; +GABA-531 PO; +LEVO150 PO; +MECL-111 PO; +NALT50TA PO; +SERT100T12 PO
[2019-01-20 16:48] LABS: BASOPHILS % (AUTO) 1.4 % (0.0-2.0); EOSINOPHILS % (AUTO) 0.5 % (1.0-6.0); HEMATOCRIT 40.2 % (41-53); HEMOGLOBIN 13.5 g/dL (13.5-17.5); LYMPHOCYTES # (AUTO) 1.8 K/uL (1.0-4.8); LYMPHOCYTES % (AUTO) 25.9 % (22.0-44.0); MEAN CORPUSCULAR HEMOGLOBIN 32.1 pg (26.0-34.0); MEAN CORPUSCULAR HGB CONC 33.5 G/dL (31.0-37.0); MEAN CORPUSCULAR VOLUME 96 fL (80-100); MONOCYTES # (AUTO) 0.6 K/uL (0.1-1.0); MONOCYTES % (AUTO) 9.1 % (2.0-9.0); NEUTROPHILS # (AUTO) 4.5 K/uL (1.8-7.7); NEUTROPHILS % (AUTO) 63.1 % (40.0-70.0); PLATELET COUNT (AUTO) 209 K/uL (150-450); RED BLOOD CELL COUNT(AUTO) 4.19 MIL/uL (4.50-5.90); RED CELL DISTRIBUTION WIDTH 14.7 % (11.5-14.5)
[2019-01-20 17:13] LABS: ALBUMIN 3.7 g/dL (3.4-5.0); BILIRUBIN,TOTAL 0.3 mg/dL (0.1-1.0); CALCIUM, TOTAL 8.6 mg/dL (8.8-10.5); CREATININE 1.32 mg/dL (0.60-1.30); PHENYTOIN (DILANTIN) 3.1 mcg/mL (10.0-20.0); TOTAL PROTEIN, SERUM 8.4 g/dL (6.4-8.2)
[2019-01-20] MEDS ORDERED: 0.9% SODIUM CHLORIDE 10 ML SYRINGE IVP PRN ×2 (18:45→22:45)
[2019-01-20] MEDS ORDERED: MAGNESIUM SULFATE 2 GM, MVI, ADULT NO.1 WITH VIT K 10 ML, THIAMINE HCL 100 MG, FOLIC AC... IV ONE ×5 (18:45)
[2019-01-20] MEDS ORDERED: ONDANSETRON HCL 4 MG/2 ML VIAL IVP PRN ×2 (18:45→22:45)
[2019-01-20] MEDS ORDERED: ACETAMINOPHEN 325 MG TABLET PO PRN (18:45)
[2019-01-20] MEDS ORDERED: ASPIRIN 325 MG TABLET PO ONE (18:45)
[2019-01-20] MEDS ORDERED: NITROGLYCERIN 2% (1 GM=INCH) PACKET TP ONE (18:45)
[2019-01-20 21:41] VITALS: BP 142/80
[2019-01-20] MEDS ORDERED: ZOLPIDEM TARTRATE 5 MG TABLET PO PRN (22:45)
[2019-01-20 22:50] LABS: APPEARANCE,URINE CLEAR (CLEAR); BILIRUBIN,URINE NEGATIVE (NEGATIVE); GLUCOSE, URINE (UA) NEGATIVE (NEGATIVE); KETONES,URINE NEGATIVE (NEGATIVE); LEUKOCYTE ESTERASE ,URINE NEGATIVE (NEGATIVE); NITRATE,URINE NEGATIVE (NEGATIVE); OCCULT BLOOD,URINE NEGATIVE (NEGATIVE); PROTEIN,URINE TRACE (NEGATIVE); UROBILINOGEN,URINE 0.2 mg/dL (<=1.0)
[2019-01-20 23:12] LABS: BACTERIA,URINE Few /HPF (None Seen); WBC,URINE 0-2 /HPF (0-5)
[2019-01-20 23:13] LABS: RBC,URINE 0-2 /HPF (0-2); SQUAMOUS EPITHELIAL CELL,UR Rare /LPF (None Seen)
[2019-01-20] MEDS: PHENYTOIN SODIUM 100 MG ER CAPSULE PO SCH (23:40)
[2019-01-20 23:55] VITALS: BP 135/73
[2019-01-20] MEDS: DIVALPROEX SODIUM 500 MG ER TABLET PO SCH (23:57)
[2019-01-20] MEDS: MECLIZINE HCL 25 MG TABLET PO SCH (23:59)
[2019-01-21 05:08] VITALS: BP 141/72
[2019-01-21] MEDS: LEVOTHYROXINE SODIUM 150 MCG TABLET PO SCH (05:10)
[2019-01-21] MEDS: MAGNESIUM SULFATE 2 GM, MVI, ADULT NO.1 WITH VIT K 10 ML, THIAMINE HCL 100 MG, FOLIC AC... IV SCH ×10 (05:10→23:56)
[2019-01-21] MEDS: MORPHINE SULFATE 2 MG/ML SYRINGE IVP PRN ×3 (07:22→20:02)
[2019-01-21 08:00] VITALS: BP 132/74
[2019-01-21] MEDS: PANTOPRAZOLE SODIUM 40 MG DR TABLET PO SCH (08:14)
[2019-01-21] MEDS: DOCUSATE SODIUM 100 MG CAPSULE PO SCH ×2 (08:15→20:00)
[2019-01-21] MEDS: SERTRALINE HCL 100 MG TABLET PO SCH (08:15)
[2019-01-21] MEDS: GABAPENTIN 300 MG CAPSULE PO SCH ×4 (08:15→20:00)
[2019-01-21] MEDS ORDERED: MAGNESIUM SULFATE 4 GM/WATER 100 ML IV PRN (09:30)
[2019-01-21] MEDS ORDERED: ASPIRIN 81 MG EC TABLET PO ONE (09:30)
[2019-01-21] MEDS ORDERED: POTASSIUM CHLORIDE 20 MEQ ER TABLET PO PRN (09:30)
[2019-01-21] MEDS ORDERED: MAGNESIUM OXIDE 400 MG TABLET PO PRN (09:30)
[2019-01-21] MEDS ORDERED: POTASSIUM CHL 10 MEQ/WATER 50 ML IV PRN (09:30)
[2019-01-21] MEDS: METOPROLOL TARTRATE 25 MG TABLET PO SCH ×2 (09:30→20:01)
[2019-01-21] MEDS ORDERED: MAGNESIUM SULFATE 2 GM/WATER 50 ML IV PRN (09:30)
[2019-01-21 11:43] VITALS: BP 113/61
[2019-01-21 16:30] VITALS: BP 123/70
[2019-01-21 19:30] VITALS: BP 134/76
[2019-01-21] MEDS: MECLIZINE HCL 25 MG TABLET PO SCH (20:00)
[2019-01-21] MEDS: DIVALPROEX SODIUM 500 MG ER TABLET PO SCH (20:00)
[2019-01-21] MEDS: PHENYTOIN SODIUM 100 MG ER CAPSULE PO SCH ×2 (20:00→21:42)
[2019-01-22 00:21] VITALS: BP 141/64
[2019-01-22] MEDS: MORPHINE SULFATE 2 MG/ML SYRINGE IVP PRN (04:28)
[2019-01-22 05:23] VITALS: BP 126/70
[2019-01-22] MEDS: LEVOTHYROXINE SODIUM 150 MCG TABLET PO SCH (06:31)
[2019-01-22 07:40] LABS: BASOPHILS % (AUTO) 1.2 % (0.0-2.0); EOSINOPHILS % (AUTO) 1.2 % (1.0-6.0); HEMATOCRIT 39.8 % (41-53); HEMOGLOBIN 13.5 g/dL (13.5-17.5); LYMPHOCYTES # (AUTO) 1.9 K/uL (1.0-4.8); LYMPHOCYTES % (AUTO) 31.7 % (22.0-44.0); MEAN CORPUSCULAR HEMOGLOBIN 32.3 pg (26.0-34.0); MEAN CORPUSCULAR HGB CONC 33.8 G/dL (31.0-37.0); MEAN CORPUSCULAR VOLUME 95 fL (80-100); MONOCYTES # (AUTO) 0.6 K/uL (0.1-1.0); MONOCYTES % (AUTO) 10.2 % (2.0-9.0); NEUTROPHILS # (AUTO) 3.3 K/uL (1.8-7.7); NEUTROPHILS % (AUTO) 55.7 % (40.0-70.0); PLATELET COUNT (AUTO) 204 K/uL (150-450); RED BLOOD CELL COUNT(AUTO) 4.18 MIL/uL (4.50-5.90); RED CELL DISTRIBUTION WIDTH 14.2 % (11.5-14.5)
[2019-01-22 07:55] VITALS: BP 142/73
[2019-01-22 08:01] LABS: ANION GAP 9 mmol/L (8-16); CALCIUM, TOTAL 7.9 mg/dL (8.8-10.5); CARBON DIOXIDE 27 mmol/L (22-29); CHLORIDE 106 mmol/L (98-107); CREATININE 0.99 mg/dL (0.60-1.30); GLOMERULAR FILTR. RATE CALC > 60 mL/min (>60); GLUCOSE,RANDOM 101 mg/dL (70-110); POTASSIUM 4.4 mmol/L (3.5-5.1); SODIUM SERUM 142 mmol/L (136-145); UREA NITROGEN, BLOOD 25 mg/dL (7-18)
[2019-01-22] MEDS: GABAPENTIN 300 MG CAPSULE PO SCH (08:36)
[2019-01-22] MEDS: METOPROLOL TARTRATE 25 MG TABLET PO SCH (08:36)
[2019-01-22] MEDS: PANTOPRAZOLE SODIUM 40 MG DR TABLET PO SCH (08:36)
[2019-01-22] MEDS: DOCUSATE SODIUM 100 MG CAPSULE PO SCH (09:00)
[2019-01-22] MEDS: SERTRALINE HCL 100 MG TABLET PO SCH (09:00)
[2019-01-22] MEDS ORDERED: METO25 PO (09:20)
== END 2019-01-22 10:25 | disposition home or self-care (01) | DRG 198 ==
LOC: EMS 14:33 → 5S 19:22
PROVIDERS: ADMIT Internal Medicine; ATTEND Internal Medicine
DX: R07.89 Other chest pain (principal); I25.10 Atherosclerotic heart disease of native coronary artery without angina pectoris; N17.9 Acute kidney failure, unspecified; K70.30 Alcoholic cirrhosis of liver without ascites; F10.120 Alcohol abuse with intoxication, uncomplicated; I10 Essential (primary) hypertension; Y90.9 Presence of alcohol in blood, level not specified; J44.9 Chronic obstructive pulmonary disease, unspecified; E03.9 Hypothyroidism, unspecified; F32.9 Major depressive disorder, single episode, unspecified; Z88.0 Allergy status to penicillin; Z88.8 Allergy status to other drugs, medicaments and biological substances; Z87.891 Personal history of nicotine dependence; I25.2 Old myocardial infarction; Z86.73 Personal history of transient ischemic attack (TIA), and cerebral infarction without residual deficits; Z91.19 Patient's noncompliance with other medical treatment and regimen
CPT/HCPCS: 83735; 87081; 93005; G0480; J2270; J3411; J3475; J3490; J7030

== ENCOUNTER 2019-01-27 00:41 | Emergency (ER) | payer OTHER ==
[~2019-01-27] VITALS: Ht 180.3 cm; Wt 88.6 kg
[~2019-01-27 00:41] MED LIST changes: -ASPI81 PO; -FLUO-191 PO; -FOLI1 PO; -LEVO125 PO; +METO25 PO; -PHEN60TA15 PO; -THERAGRAN M1 TA1 PO
[2019-01-27 03:10] VITALS: BP 119/78
== END 2019-01-27 03:38 | disposition home or self-care (01) ==
LOC: EMS 00:42
DX: G40.909 Epilepsy, unspecified, not intractable, without status epilepticus (principal); F17.210 Nicotine dependence, cigarettes, uncomplicated; F19.90 Other psychoactive substance use, unspecified, uncomplicated; Z59.0 Homelessness; Z88.0 Allergy status to penicillin

== ENCOUNTER 2020-05-29 14:20 | Emergency (ER) | payer OTHER ==
[~2020-05-29] VITALS: Ht 172.7 cm; Wt 73.0 kg
[~2020-05-29 14:20] MED LIST changes: -DIVA500T52 PO; +FURO20 PO; -GABA-531 PO; -LEVO150 PO; -MECL-111 PO; -METO25 PO; -NALT50TA PO; +PHEN100C23 PO; -PHENY100 PO; -SERT100T12 PO
[2020-05-29 15:53] LABS: GLUCOSE,POINT OF CARE 78 MG/DL (70-110)
[2020-05-29 17:30] LABS: BASOPHILS % (AUTO) 2.5 % (0.0-2.0); EOSINOPHILS % (AUTO) 0.8 % (1.0-6.0); HEMATOCRIT 41.4 % (41-53); HEMOGLOBIN 13.6 g/dL (13.5-17.5); LYMPHOCYTES # (AUTO) 3.5 K/uL (1.0-4.8); LYMPHOCYTES % (AUTO) 37.4 % (22.0-44.0); MEAN CORPUSCULAR HEMOGLOBIN 30.3 pg (26.0-34.0); MEAN CORPUSCULAR HGB CONC 32.8 G/dL (31.0-37.0); MEAN CORPUSCULAR VOLUME 92 fL (80-100); MONOCYTES # (AUTO) 0.4 K/uL (0.1-1.0); MONOCYTES % (AUTO) 3.8 % (2.0-9.0); NEUTROPHILS # (AUTO) 5.3 K/uL (1.8-7.7); NEUTROPHILS % (AUTO) 55.5 % (40.0-70.0); PLATELET COUNT (AUTO) 227 K/uL (150-450); RED BLOOD CELL COUNT(AUTO) 4.49 MIL/uL (4.50-5.90); RED CELL DISTRIBUTION WIDTH 15.1 % (11.5-14.5)
[2020-05-29 17:39] LABS: ANION GAP 14 mmol/L (8-16); CALCIUM, TOTAL 8.9 mg/dL (8.8-10.5); CARBON DIOXIDE 22 mmol/L (22-29); CHLORIDE 106 mmol/L (98-107); CREATININE 1.06 mg/dL (0.60-1.30); GLOMERULAR FILTR. RATE CALC > 60 mL/min (>60); GLUCOSE,RANDOM 83 mg/dL (70-110); POTASSIUM 3.5 mmol/L (3.5-5.1); SODIUM SERUM 142 mmol/L (136-145); UREA NITROGEN, BLOOD 16 mg/dL (7-18)
[2020-05-29 17:46] LABS: ALANINE AMINOTRANSFERASE 18 U/L (12-78); ALBUMIN 4.2 g/dL (3.4-5.0); ALKALINE PHOSPHATASE 86 U/L (46-116); ASPARTATE AMINOTRANSFERASE 12 U/L (15-37); BILIRUBIN,TOTAL 0.2 mg/dL (0.1-1.0); TOTAL PROTEIN, SERUM 8.4 g/dL (6.4-8.2)
[2020-05-30 03:35] VITALS: BP 123/71
== END 2020-05-30 05:55 | disposition home or self-care (01) ==
LOC: EMS 14:27
DX: S00.01XA Abrasion of scalp, initial encounter (principal); F10.129 Alcohol abuse with intoxication, unspecified; I25.10 Atherosclerotic heart disease of native coronary artery without angina pectoris; F32.9 Major depressive disorder, single episode, unspecified; I10 Essential (primary) hypertension; F17.210 Nicotine dependence, cigarettes, uncomplicated; F19.90 Other psychoactive substance use, unspecified, uncomplicated; Z59.0 Homelessness; Z88.0 Allergy status to penicillin; Z79.899 Other long term (current) drug therapy; X58.XXXA Exposure to other specified factors, initial encounter; Y93.89 Activity, other specified; Y92.89 Other specified places as the place of occurrence of the external cause; Y99.8 Other external cause status; Y90.8 Blood alcohol level of 240 mg/100 ml or more
CPT/HCPCS: 70450; 72125; 80053; 82962; 85025; 99285; G0480

== ENCOUNTER 2020-09-15 12:29 | Inpatient (IN) | payer MEDICAID, OTHER ==
[~2020-09-15] VITALS: Ht 172.7 cm; Wt 74.9 kg
[2020-09-15 15:50] LABS: BASOPHILS % (AUTO) 1.4 % (0.0-2.0); HEMATOCRIT 40.8 % (41-53); HEMOGLOBIN 13.2 g/dL (13.5-17.5); LYMPHOCYTES # (AUTO) 2.8 K/uL (1.0-4.8); LYMPHOCYTES % (AUTO) 40.7 % (22.0-44.0); MEAN CORPUSCULAR HEMOGLOBIN 29.8 pg (26.0-34.0); MEAN CORPUSCULAR HGB CONC 32.4 G/dL (31.0-37.0); MEAN CORPUSCULAR VOLUME 92 fL (80-100); MONOCYTES # (AUTO) 0.5 K/uL (0.1-1.0); MONOCYTES % (AUTO) 7.1 % (2.0-9.0); NEUTROPHILS # (AUTO) 3.4 K/uL (1.8-7.7); NEUTROPHILS % (AUTO) 48.8 % (40.0-70.0); PLATELET COUNT (AUTO) 152 K/uL (150-450); RED BLOOD CELL COUNT(AUTO) 4.44 MIL/uL (4.50-5.90); RED CELL DISTRIBUTION WIDTH 15.1 % (11.5-14.5)
[2020-09-15 16:03] LABS: ANION GAP 13 mmol/L (8-16); CALCIUM, TOTAL 8.6 mg/dL (8.8-10.5); CARBON DIOXIDE 18 mmol/L (22-29); CHLORIDE 108 mmol/L (98-107); CREATININE 1.54 mg/dL (0.60-1.30); GLOMERULAR FILTR. RATE CALC 47 mL/min (>60); GLUCOSE,RANDOM 100 mg/dL (70-110); POTASSIUM 3.6 mmol/L (3.5-5.1); SODIUM SERUM 139 mmol/L (136-145); UREA NITROGEN, BLOOD 26 mg/dL (7-18)
[2020-09-15 16:08] LABS: ALKALINE PHOSPHATASE 110 U/L (46-116); ASPARTATE AMINOTRANSFERASE 26 U/L (15-37); BILIRUBIN,TOTAL 0.3 mg/dL (0.1-1.0)
[2020-09-15 16:33] LABS: ALANINE AMINOTRANSFERASE 38 U/L (12-78); ALBUMIN 4.3 g/dL (3.4-5.0)
[2020-09-15 20:56] LABS: COVID AG,FIA SOURCE NASOPHARYNGEAL
[2020-09-15 21:57] LABS: AMPHET/METH SCREEN,URINE NEGATIVE (NEGATIVE); BARBITURATE SCREEN, URINE NEGATIVE (NEGATIVE); BENZODIAZEPINES SCREEN,URINE NEGATIVE (NEGATIVE); CANNABINOID SCREEN,URINE NEGATIVE (NEGATIVE); COCAINE SCREEN,URINE NEGATIVE (NEGATIVE); METHADONE SCREEN, URINE NEGATIVE (NEGATIVE); OPIATE SCREEN,URINE NEGATIVE (NEGATIVE); PHENCYCLIDINE SCREEN,URINE NEGATIVE (NEGATIVE)
[2020-09-15 22:00] VITALS: BP 144/77
[2020-09-15] MEDS ORDERED: ACETAMINOPHEN 325 MG TABLET PO PRN (22:45)
[2020-09-15] MEDS ORDERED: CloNIDine HCL 0.1 MG TABLET PO PRN (22:45)
[2020-09-15] MEDS ORDERED: MAG HYDROX/AL HYDROX/SIMETH ES 30 ML SUSPENSION UDCUP PO PRN (22:45)
[2020-09-15] MEDS ORDERED: IBUPROFEN 400 MG TABLET PO PRN (22:45)
[2020-09-15] MEDS ORDERED: ALBUTEROL SULFATE HFA 90 MCG/PUFF 8 GM INHALER IH PRN (22:45)
[2020-09-15] MEDS ORDERED: ONDANSETRON HCL 4 MG TABLET PO PRN (22:45)
[2020-09-15] MEDS ORDERED: GuaiFENesin/D-METHORPHAN [SUGAR-FREE] 200-20MG/10 ML SYRUP UDCUP PO PRN (22:45)
[2020-09-15] MEDS ORDERED: LOPERAMIDE HCL 2 MG CAPSULE PO PRN (22:45)
[2020-09-15] MEDS ORDERED: DOCUSATE SODIUM 100 MG CAPSULE PO PRN (22:45)
[2020-09-15] MEDS ORDERED: NICOTINE 14 MG/24 HOUR PATCH TD PRN (22:45)
[2020-09-15] MEDS ORDERED: PETROLATUM,WHITE 28 GM JELLY TP PRN (22:45)
[2020-09-15] MEDS ORDERED: MAGNESIUM HYDROXIDE SUSPENSION 30 ML UDCUP PO PRN (22:45)
[2020-09-16 01:28] VITALS: BP 126/62
[2020-09-16] MEDS: LORazepam 2 MG TABLET PO PRN ×3 (01:30→18:14)
[2020-09-16 08:13] VITALS: BP 145/75
[2020-09-16] MEDS ORDERED: CloNIDine HCL 0.1 MG TABLET PO PRN (08:30)
[2020-09-16] MEDS ORDERED: NICOTINE 14 MG/24 HOUR PATCH TD PRN (08:30)
[2020-09-16] MEDS ORDERED: GuaiFENesin/D-METHORPHAN [SUGAR-FREE] 200-20MG/10 ML SYRUP UDCUP PO PRN (08:30)
[2020-09-16] MEDS ORDERED: PETROLATUM,WHITE 28 GM JELLY TP PRN (08:30)
[2020-09-16] MEDS ORDERED: FUROSEMIDE 20 MG TABLET PO SCH (09:00)
[2020-09-16 09:50] LABS: BASOPHILS % (AUTO) 1.2 % (0.0-2.0); EOSINOPHILS % (AUTO) 2.7 % (1.0-6.0); HEMOGLOBIN 13.2 g/dL (13.5-17.5); LYMPHOCYTES # (AUTO) 2.4 K/uL (1.0-4.8); LYMPHOCYTES % (AUTO) 35.2 % (22.0-44.0); MEAN CORPUSCULAR HEMOGLOBIN 29.1 pg (26.0-34.0); MEAN CORPUSCULAR HGB CONC 32.9 G/dL (31.0-37.0); MEAN CORPUSCULAR VOLUME 88 fL (80-100); MONOCYTES # (AUTO) 0.4 K/uL (0.1-1.0); MONOCYTES % (AUTO) 6.1 % (2.0-9.0); NEUTROPHILS # (AUTO) 3.7 K/uL (1.8-7.7); NEUTROPHILS % (AUTO) 54.8 % (40.0-70.0); PLATELET COUNT (AUTO) 182 K/uL (150-450); RED BLOOD CELL COUNT(AUTO) 4.52 MIL/uL (4.50-5.90); RED CELL DISTRIBUTION WIDTH 14.8 % (11.5-14.5)
[2020-09-16] MEDS: NICOTINE 21 MG/24 HOUR PATCH TD SCH (09:51)
[2020-09-16] MEDS: FUROSEMIDE 20 MG TABLET PO SCH (09:52)
[2020-09-16] MEDS: LevETIRAcetam 500 MG TABLET PO SCH ×2 (09:52→16:03)
[2020-09-16] MEDS: PHENYTOIN SODIUM 100 MG ER CAPSULE PO SCH (09:52)
[2020-09-16] MEDS: ESCITALOPRAM OXALATE 10 MG TABLET PO SCH (09:53)
[2020-09-16 09:57] LABS: HEMOGLOBIN A1C 5.8 % (3.8-5.6)
[2020-09-16 10:06] LABS: CHOL/HDL RATIO 8.1 (4.2-7.3)
[2020-09-16 10:12] LABS: ALBUMIN 3.6 g/dL (3.4-5.0); BILIRUBIN,TOTAL 0.3 mg/dL (0.1-1.0); CALCIUM, TOTAL 8.4 mg/dL (8.8-10.5); CREATININE 1.26 mg/dL (0.60-1.30); POTASSIUM 3.2 mmol/L (3.5-5.1); TOTAL PROTEIN, SERUM 7.6 g/dL (6.4-8.2)
[2020-09-16 10:42] LABS: THYROID STIMULATING HORMONE 125.84 uIU/mL (0.36-3.74)
[2020-09-16 16:03] VITALS: BP 106/72
[2020-09-16] MEDS ORDERED: POTASSIUM CHLORIDE 20 MEQ ER TABLET PO ONE (16:45)
[2020-09-16 18:14] VITALS: BP 122/63
[2020-09-16] MEDS: HALOPERIDOL 5 MG TABLET PO PRN (18:14)
[2020-09-16 19:14] VITALS: BP 119/82
[2020-09-17] VITALS (9 sets, daily range): BP systolic 115–151; BP diastolic 58–87
[2020-09-17] MEDS: ACETAMINOPHEN 325 MG TABLET PO PRN (05:41)
[2020-09-17] MEDS: PHENYTOIN SODIUM 100 MG ER CAPSULE PO SCH (07:59)
[2020-09-17] MEDS: FUROSEMIDE 20 MG TABLET PO SCH (07:59)
[2020-09-17] MEDS: ESCITALOPRAM OXALATE 10 MG TABLET PO SCH (07:59)
[2020-09-17] MEDS: LevETIRAcetam 500 MG TABLET PO SCH ×2 (07:59→16:32)
[2020-09-17] MEDS: NICOTINE 21 MG/24 HOUR PATCH TD SCH (08:04)
[2020-09-17] MEDS: MAG HYDROX/AL HYDROX/SIMETH ES 30 ML SUSPENSION UDCUP PO PRN (09:27)
[2020-09-17] MEDS: ONDANSETRON HCL 4 MG TABLET PO PRN (09:50)
[2020-09-17] MEDS: OMEPRAZOLE 20 MG CAPSULE PO SCH (14:13)
[2020-09-17 22:30] LABS: APPEARANCE,URINE CLEAR (CLEAR); BILIRUBIN,URINE NEGATIVE (NEGATIVE); GLUCOSE, URINE (UA) NEGATIVE (NEGATIVE); KETONES,URINE NEGATIVE (NEGATIVE); LEUKOCYTE ESTERASE ,URINE TRACE (NEGATIVE); NITRATE,URINE NEGATIVE (NEGATIVE); OCCULT BLOOD,URINE NEGATIVE (NEGATIVE); PH,URINE 5.5 (5.0-8.0); PROTEIN,URINE NEGATIVE (NEGATIVE); UROBILINOGEN,URINE 0.2 mg/dL (<=1.0)
[2020-09-17 22:44] LABS: BACTERIA,URINE None Seen /HPF (None Seen); RBC,URINE None Seen /HPF (0-2); WBC,URINE 0-2 /HPF (0-5)
[2020-09-17 22:45] LABS: SQUAMOUS EPITHELIAL CELL,UR Rare /LPF (None Seen)
[2020-09-18 01:15] VITALS: BP 144/75
[2020-09-18] MEDS: ALBUTEROL SULFATE HFA 90 MCG/PUFF 8 GM INHALER IH PRN ×2 (02:14→09:37)
[2020-09-18] MEDS: MAG HYDROX/AL HYDROX/SIMETH ES 30 ML SUSPENSION UDCUP PO PRN ×2 (06:28→11:34)
[2020-09-18] MEDS: ONDANSETRON HCL 4 MG TABLET PO PRN (07:59)
[2020-09-18] MEDS: OMEPRAZOLE 20 MG CAPSULE PO SCH (07:59)
[2020-09-18 08:02] VITALS: BP 135/73
[2020-09-18 08:24] LABS: BASOPHILS % (AUTO) 1.4 % (0.0-2.0); EOSINOPHILS % (AUTO) 2.6 % (1.0-6.0); HEMATOCRIT 39.7 % (41-53); HEMOGLOBIN 13.2 g/dL (13.5-17.5); LYMPHOCYTES # (AUTO) 2.8 K/uL (1.0-4.8); LYMPHOCYTES % (AUTO) 41.7 % (22.0-44.0); MEAN CORPUSCULAR HEMOGLOBIN 29.2 pg (26.0-34.0); MEAN CORPUSCULAR HGB CONC 33.3 G/dL (31.0-37.0); MEAN CORPUSCULAR VOLUME 88 fL (80-100); MONOCYTES # (AUTO) 0.5 K/uL (0.1-1.0); MONOCYTES % (AUTO) 7.5 % (2.0-9.0); NEUTROPHILS # (AUTO) 3.1 K/uL (1.8-7.7); NEUTROPHILS % (AUTO) 46.8 % (40.0-70.0); PLATELET COUNT (AUTO) 158 K/uL (150-450); RED BLOOD CELL COUNT(AUTO) 4.51 MIL/uL (4.50-5.90); RED CELL DISTRIBUTION WIDTH 14.4 % (11.5-14.5)
[2020-09-18 08:33] LABS: CALCIUM, TOTAL 8.8 mg/dL (8.8-10.5); CREATININE 1.36 mg/dL (0.60-1.30); POTASSIUM 3.9 mmol/L (3.5-5.1)
[2020-09-18] MEDS: ESCITALOPRAM OXALATE 10 MG TABLET PO SCH (09:31)
[2020-09-18] MEDS: LevETIRAcetam 500 MG TABLET PO SCH ×2 (09:31→16:08)
[2020-09-18] MEDS: FUROSEMIDE 20 MG TABLET PO SCH (09:31)
[2020-09-18] MEDS: PHENYTOIN SODIUM 100 MG ER CAPSULE PO SCH (09:32)
[2020-09-18] MEDS: NICOTINE 21 MG/24 HOUR PATCH TD SCH (09:37)
[2020-09-18] MEDS: METOCLOPRAMIDE HCL 5 MG TABLET PO PRN (13:32)
[2020-09-18] MEDS: HALOPERIDOL 5 MG TABLET PO PRN ×2 (15:04→20:49)
[2020-09-18] MEDS: ACETAMINOPHEN 325 MG TABLET PO PRN (16:37)
[2020-09-18 16:39] VITALS: BP 104/65
[2020-09-19 00:37] VITALS: BP 113/59
[2020-09-19 08:00] VITALS: BP 124/88
[2020-09-19] MEDS: NICOTINE 21 MG/24 HOUR PATCH TD SCH (08:18)
[2020-09-19] MEDS: PHENYTOIN SODIUM 100 MG ER CAPSULE PO SCH (08:18)
[2020-09-19] MEDS: OMEPRAZOLE 20 MG CAPSULE PO SCH (08:18)
[2020-09-19] MEDS: LevETIRAcetam 500 MG TABLET PO SCH ×2 (08:18→16:37)
[2020-09-19] MEDS: ESCITALOPRAM OXALATE 10 MG TABLET PO SCH (08:18)
[2020-09-19] MEDS: FUROSEMIDE 20 MG TABLET PO SCH (08:18)
[2020-09-19] MEDS: METOCLOPRAMIDE HCL 5 MG TABLET PO PRN (08:19)
[2020-09-19] MEDS: MAG HYDROX/AL HYDROX/SIMETH ES 30 ML SUSPENSION UDCUP PO PRN ×2 (12:42→19:21)
[2020-09-19 16:07] VITALS: BP 102/72
[2020-09-19] MEDS: HALOPERIDOL 5 MG TABLET PO PRN ×2 (18:35→23:44)
[2020-09-19] MEDS: ZOLPIDEM TARTRATE 10 MG TABLET PO PRN (21:09)
[2020-09-20 03:51] VITALS: BP 108/70
[2020-09-20] MEDS: MAG HYDROX/AL HYDROX/SIMETH ES 30 ML SUSPENSION UDCUP PO PRN ×2 (05:30→13:17)
[2020-09-20] MEDS: METOCLOPRAMIDE HCL 5 MG TABLET PO PRN (06:37)
[2020-09-20 09:30] VITALS: BP 158/75
[2020-09-20] MEDS: PHENYTOIN SODIUM 100 MG ER CAPSULE PO SCH (10:04)
[2020-09-20] MEDS: ESCITALOPRAM OXALATE 10 MG TABLET PO SCH (10:04)
[2020-09-20] MEDS: HALOPERIDOL 5 MG TABLET PO PRN (10:04)
[2020-09-20] MEDS: FUROSEMIDE 20 MG TABLET PO SCH (10:04)
[2020-09-20] MEDS: LevETIRAcetam 500 MG TABLET PO SCH ×2 (10:04→16:20)
[2020-09-20] MEDS: OMEPRAZOLE 20 MG CAPSULE PO SCH (10:04)
[2020-09-20] MEDS: NICOTINE 21 MG/24 HOUR PATCH TD SCH (10:14)
[2020-09-20] MEDS: LORazepam 2 MG TABLET PO PRN ×2 (13:18→20:21)
[2020-09-20 16:00] VITALS: BP 132/57
[2020-09-20] MEDS: FERROUS SULFATE 325 MG EC TABLET PO SCH (17:30)
[2020-09-20 20:21] VITALS: BP 128/64
[2020-09-20 21:21] VITALS: BP 122/69
[2020-09-21 06:50] VITALS: BP 130/80
[2020-09-21] MEDS: FERROUS SULFATE 325 MG EC TABLET PO SCH ×2 (06:50→17:08)
[2020-09-21 09:06] VITALS: BP 128/63
[2020-09-21] MEDS: METOCLOPRAMIDE HCL 5 MG TABLET PO PRN (09:57)
[2020-09-21] MEDS: LORazepam 2 MG TABLET PO PRN ×2 (09:57→18:49)
[2020-09-21] MEDS: ACETAMINOPHEN 325 MG TABLET PO PRN (09:58)
[2020-09-21] MEDS: FUROSEMIDE 20 MG TABLET PO SCH (09:58)
[2020-09-21] MEDS: LevETIRAcetam 500 MG TABLET PO SCH ×2 (09:58→17:08)
[2020-09-21] MEDS: OMEPRAZOLE 20 MG CAPSULE PO SCH (09:58)
[2020-09-21] MEDS: ESCITALOPRAM OXALATE 10 MG TABLET PO SCH (09:58)
[2020-09-21] MEDS: PHENYTOIN SODIUM 100 MG ER CAPSULE PO SCH (09:58)
[2020-09-21] MEDS: NICOTINE 21 MG/24 HOUR PATCH TD SCH (10:28)
[2020-09-21 16:46] VITALS: BP 103/67
[2020-09-21] MEDS: HALOPERIDOL 5 MG TABLET PO PRN (17:37)
[2020-09-21] MEDS: ZOLPIDEM TARTRATE 10 MG TABLET PO PRN (20:34)
[2020-09-22 02:25] VITALS: BP 120/63
[2020-09-22] MEDS: FERROUS SULFATE 325 MG EC TABLET PO SCH ×2 (06:55→16:36)
[2020-09-22] MEDS: FUROSEMIDE 20 MG TABLET PO SCH (09:38)
[2020-09-22] MEDS: PHENYTOIN SODIUM 100 MG ER CAPSULE PO SCH (09:38)
[2020-09-22] MEDS: ESCITALOPRAM OXALATE 10 MG TABLET PO SCH (09:38)
[2020-09-22] MEDS: OMEPRAZOLE 20 MG CAPSULE PO SCH (09:38)
[2020-09-22] MEDS: LevETIRAcetam 500 MG TABLET PO SCH ×2 (09:38→16:36)
[2020-09-22] MEDS: NICOTINE 21 MG/24 HOUR PATCH TD SCH (09:39)
[2020-09-22] MEDS: MAG HYDROX/AL HYDROX/SIMETH ES 30 ML SUSPENSION UDCUP PO PRN (09:42)
[2020-09-22 09:52] VITALS: BP 131/68
[2020-09-22] MEDS: LORazepam 2 MG TABLET PO PRN (15:12)
[2020-09-22 16:59] VITALS: BP 120/66
[2020-09-23] MEDS: FERROUS SULFATE 325 MG EC TABLET PO SCH ×2 (06:37→16:25)
[2020-09-23] MEDS: MAG HYDROX/AL HYDROX/SIMETH ES 30 ML SUSPENSION UDCUP PO PRN (06:45)
[2020-09-23] MEDS: FUROSEMIDE 20 MG TABLET PO SCH (08:19)
[2020-09-23] MEDS: FLUoxetine HCL 20 MG CAPSULE PO SCH (08:19)
[2020-09-23] MEDS: LevETIRAcetam 500 MG TABLET PO SCH ×2 (08:19→16:25)
[2020-09-23] MEDS: OMEPRAZOLE 20 MG CAPSULE PO SCH (08:19)
[2020-09-23] MEDS: NICOTINE 21 MG/24 HOUR PATCH TD SCH (08:19)
[2020-09-23] MEDS: PHENYTOIN SODIUM 100 MG ER CAPSULE PO SCH (08:19)
[2020-09-23 08:24] VITALS: BP 131/67
[2020-09-23] MEDS: IBUPROFEN 400 MG TABLET PO PRN ×2 (15:01→22:37)
[2020-09-23 15:05] VITALS: BP 110/62
[2020-09-23] MEDS: LORazepam 2 MG TABLET PO PRN ×2 (15:05→21:08)
[2020-09-23 16:05] VITALS: BP 111/63
[2020-09-23 16:13] VITALS: BP 110/62
[2020-09-23] MEDS: MAGNESIUM HYDROXIDE SUSPENSION 30 ML UDCUP PO PRN (18:54)
[2020-09-23] MEDS: ZOLPIDEM TARTRATE 10 MG TABLET PO PRN (21:08)
[2020-09-23 22:33] VITALS: BP 112/61
[2020-09-23] MEDS: HALOPERIDOL 5 MG TABLET PO PRN (22:37)
[2020-09-24] MEDS: FERROUS SULFATE 325 MG EC TABLET PO SCH ×2 (06:32→16:12)
[2020-09-24] MEDS: PHENYTOIN SODIUM 100 MG ER CAPSULE PO SCH (07:49)
[2020-09-24] MEDS: LevETIRAcetam 500 MG TABLET PO SCH ×2 (07:49→16:12)
[2020-09-24] MEDS: FLUoxetine HCL 20 MG CAPSULE PO SCH (07:49)
[2020-09-24] MEDS: NICOTINE 21 MG/24 HOUR PATCH TD SCH (07:49)
[2020-09-24] MEDS: FUROSEMIDE 20 MG TABLET PO SCH (07:49)
[2020-09-24] MEDS: OMEPRAZOLE 20 MG CAPSULE PO SCH (07:49)
[2020-09-24] MEDS: IBUPROFEN 400 MG TABLET PO PRN (07:59)
[2020-09-24 08:30] VITALS: BP 106/50
[2020-09-24] MEDS: MAG HYDROX/AL HYDROX/SIMETH ES 30 ML SUSPENSION UDCUP PO PRN (10:07)
[2020-09-24] MEDS: LOPERAMIDE HCL 2 MG CAPSULE PO PRN (12:10)
[2020-09-24 16:04] VITALS: BP 119/78
[2020-09-24] MEDS: HALOPERIDOL 5 MG TABLET PO PRN ×2 (16:12→20:47)
[2020-09-24] MEDS: LORazepam 2 MG TABLET PO PRN ×2 (16:12→20:47)
[2020-09-24] MEDS: ZOLPIDEM TARTRATE 10 MG TABLET PO PRN (21:15)
[2020-09-25] MEDS: MAG HYDROX/AL HYDROX/SIMETH ES 30 ML SUSPENSION UDCUP PO PRN ×2 (00:23→23:46)
[2020-09-25 01:10] VITALS: BP 114/66
[2020-09-25] MEDS: LORazepam 2 MG TABLET PO PRN ×3 (02:22→23:52)
[2020-09-25] MEDS: METOCLOPRAMIDE HCL 5 MG TABLET PO PRN (03:38)
[2020-09-25] MEDS: IBUPROFEN 400 MG TABLET PO PRN ×2 (03:56→19:47)
[2020-09-25 04:02] VITALS: BP 125/73
[2020-09-25] MEDS: FERROUS SULFATE 325 MG EC TABLET PO SCH ×2 (06:52→16:48)
[2020-09-25 08:16] VITALS: BP 112/56
[2020-09-25] MEDS: PHENYTOIN SODIUM 100 MG ER CAPSULE PO SCH (08:47)
[2020-09-25] MEDS: FUROSEMIDE 20 MG TABLET PO SCH (08:47)
[2020-09-25] MEDS: OMEPRAZOLE 20 MG CAPSULE PO SCH (08:47)
[2020-09-25] MEDS: FLUoxetine HCL 20 MG CAPSULE PO SCH (08:47)
[2020-09-25] MEDS: LevETIRAcetam 500 MG TABLET PO SCH ×2 (08:47→16:10)
[2020-09-25] MEDS: NICOTINE 21 MG/24 HOUR PATCH TD SCH (08:56)
[2020-09-25] MEDS: LOPERAMIDE HCL 2 MG CAPSULE PO PRN (10:24)
[2020-09-25 16:18] VITALS: BP 115/66
[2020-09-25 23:52] VITALS: BP 117/65
[2020-09-25] MEDS: ZOLPIDEM TARTRATE 10 MG TABLET PO PRN (23:52)
[2020-09-26] MEDS: IBUPROFEN 400 MG TABLET PO PRN ×2 (05:10→20:04)
[2020-09-26] MEDS: FERROUS SULFATE 325 MG EC TABLET PO SCH ×2 (06:30→17:07)
[2020-09-26] MEDS: PHENYTOIN SODIUM 100 MG ER CAPSULE PO SCH (09:19)
[2020-09-26 09:20] VITALS: BP 115/70
[2020-09-26] MEDS: ACETAMINOPHEN 325 MG TABLET PO PRN (09:20)
[2020-09-26] MEDS: LevETIRAcetam 500 MG TABLET PO SCH ×2 (09:20→17:07)
[2020-09-26] MEDS: FUROSEMIDE 20 MG TABLET PO SCH (09:20)
[2020-09-26] MEDS: OMEPRAZOLE 20 MG CAPSULE PO SCH (09:20)
[2020-09-26] MEDS: FLUoxetine HCL 20 MG CAPSULE PO SCH (09:21)
[2020-09-26] MEDS: NICOTINE 21 MG/24 HOUR PATCH TD SCH (09:21)
[2020-09-26 09:27] VITALS: BP 115/78
[2020-09-26 10:20] VITALS: BP 136/81
[2020-09-26] MEDS: ARIPiprazole 5 MG TABLET PO SCH (10:46)
[2020-09-26] MEDS: MAG HYDROX/AL HYDROX/SIMETH ES 30 ML SUSPENSION UDCUP PO PRN (12:55)
[2020-09-26 16:00] VITALS: BP 133/79
[2020-09-26] MEDS: HALOPERIDOL 5 MG TABLET PO PRN (19:09)
[2020-09-26 20:00] VITALS: BP 136/77
[2020-09-26] MEDS: LORazepam 2 MG TABLET PO PRN (21:28)
[2020-09-26] MEDS: ZOLPIDEM TARTRATE 10 MG TABLET PO PRN (22:04)
[2020-09-27 04:28] VITALS: BP 133/86
[2020-09-27 05:09] VITALS: BP 120/74
[2020-09-27] MEDS: IBUPROFEN 400 MG TABLET PO PRN (05:09)
[2020-09-27] MEDS: FERROUS SULFATE 325 MG EC TABLET PO SCH ×2 (06:58→16:27)
[2020-09-27] MEDS: OMEPRAZOLE 20 MG CAPSULE PO SCH (08:12)
[2020-09-27] MEDS: MAG HYDROX/AL HYDROX/SIMETH ES 30 ML SUSPENSION UDCUP PO PRN (08:12)
[2020-09-27] MEDS: NICOTINE 21 MG/24 HOUR PATCH TD SCH (08:13)
[2020-09-27 08:35] VITALS: BP 125/64
[2020-09-27] MEDS: FLUoxetine HCL 20 MG CAPSULE PO SCH (09:21)
[2020-09-27] MEDS: FUROSEMIDE 20 MG TABLET PO SCH (09:21)
[2020-09-27] MEDS: ARIPiprazole 5 MG TABLET PO SCH (09:21)
[2020-09-27] MEDS: LevETIRAcetam 500 MG TABLET PO SCH ×2 (09:21→16:27)
[2020-09-27] MEDS: PHENYTOIN SODIUM 100 MG ER CAPSULE PO SCH (09:21)
[2020-09-27 16:10] VITALS: BP 112/66
[2020-09-27] MEDS: HALOPERIDOL 5 MG TABLET PO PRN (16:27)
[2020-09-27] MEDS: LORazepam 2 MG TABLET PO PRN (21:02)
[2020-09-27] MEDS: ZOLPIDEM TARTRATE 10 MG TABLET PO PRN (21:02)
[2020-09-28 01:13] VITALS: BP 109/67
[2020-09-28] MEDS: IBUPROFEN 400 MG TABLET PO PRN (01:13)
[2020-09-28 06:22] VITALS: BP 110/63
[2020-09-28] MEDS: ACETAMINOPHEN 325 MG TABLET PO PRN (06:24)
[2020-09-28] MEDS: FERROUS SULFATE 325 MG EC TABLET PO SCH ×2 (07:08→17:07)
[2020-09-28 08:13] VITALS: BP 121/51
[2020-09-28] MEDS: ARIPiprazole 5 MG TABLET PO SCH (09:00)
[2020-09-28] MEDS: PHENYTOIN SODIUM 100 MG ER CAPSULE PO SCH (09:00)
[2020-09-28] MEDS: OMEPRAZOLE 20 MG CAPSULE PO SCH (09:00)
[2020-09-28] MEDS: FLUoxetine HCL 20 MG CAPSULE PO SCH (09:01)
[2020-09-28] MEDS: LevETIRAcetam 500 MG TABLET PO SCH ×2 (09:01→17:07)
[2020-09-28] MEDS: FUROSEMIDE 20 MG TABLET PO SCH (09:01)
[2020-09-28] MEDS: LORazepam 2 MG TABLET PO PRN ×2 (09:01→20:56)
[2020-09-28] MEDS: METOCLOPRAMIDE HCL 5 MG TABLET PO PRN (09:05)
[2020-09-28] MEDS: NICOTINE 21 MG/24 HOUR PATCH TD SCH (09:11)
[2020-09-28 09:18] VITALS: BP 132/76
[2020-09-28 16:19] VITALS: BP 126/70
[2020-09-28] MEDS: HALOPERIDOL 5 MG TABLET PO PRN (17:08)
[2020-09-28] MEDS: ZOLPIDEM TARTRATE 10 MG TABLET PO PRN (20:56)
[2020-09-29] MEDS: HALOPERIDOL 5 MG TABLET PO PRN (00:11)
[2020-09-29 01:23] VITALS: BP 115/60
[2020-09-29] MEDS: FERROUS SULFATE 325 MG EC TABLET PO SCH ×2 (06:53→16:27)
[2020-09-29 08:28] VITALS: BP 120/78
[2020-09-29] MEDS: LevETIRAcetam 500 MG TABLET PO SCH ×2 (08:52→16:27)
[2020-09-29] MEDS: FLUoxetine HCL 20 MG CAPSULE PO SCH (08:52)
[2020-09-29] MEDS: PHENYTOIN SODIUM 100 MG ER CAPSULE PO SCH (08:53)
[2020-09-29] MEDS: ARIPiprazole 5 MG TABLET PO SCH (08:53)
[2020-09-29] MEDS: FUROSEMIDE 20 MG TABLET PO SCH (08:53)
[2020-09-29] MEDS: OMEPRAZOLE 20 MG CAPSULE PO SCH (08:53)
[2020-09-29] MEDS: NICOTINE 21 MG/24 HOUR PATCH TD SCH (08:54)
[2020-09-29] MEDS: MAG HYDROX/AL HYDROX/SIMETH ES 30 ML SUSPENSION UDCUP PO PRN (12:16)
[2020-09-29 16:00] VITALS: BP 118/66
[2020-09-29] MEDS: ZOLPIDEM TARTRATE 10 MG TABLET PO PRN (19:26)
[2020-09-29] MEDS: METOCLOPRAMIDE HCL 5 MG TABLET PO PRN (19:26)
[2020-09-30] MEDS: LORazepam 2 MG TABLET PO PRN (00:03)
[2020-09-30] MEDS: HALOPERIDOL 5 MG TABLET PO PRN (00:03)
[2020-09-30 00:09] VITALS: BP 135/74
[2020-09-30] MEDS: FERROUS SULFATE 325 MG EC TABLET PO SCH ×2 (07:00→16:11)
[2020-09-30] MEDS: ARIPiprazole 5 MG TABLET PO SCH (08:51)
[2020-09-30] MEDS: PHENYTOIN SODIUM 100 MG ER CAPSULE PO SCH (08:51)
[2020-09-30] MEDS: LevETIRAcetam 500 MG TABLET PO SCH ×2 (08:51→16:11)
[2020-09-30] MEDS: NICOTINE 21 MG/24 HOUR PATCH TD SCH (08:52)
[2020-09-30] MEDS: FLUoxetine HCL 20 MG CAPSULE PO SCH (08:52)
[2020-09-30] MEDS: OMEPRAZOLE 20 MG CAPSULE PO SCH (08:52)
[2020-09-30] MEDS: FUROSEMIDE 20 MG TABLET PO SCH (08:53)
[2020-09-30] MEDS: MAG HYDROX/AL HYDROX/SIMETH ES 30 ML SUSPENSION UDCUP PO PRN (11:44)
[2020-09-30 16:06] VITALS: BP 121/68
[2020-09-30] MEDS: ZOLPIDEM TARTRATE 10 MG TABLET PO PRN (21:55)
[2020-09-30 22:14] LABS: COVID AG,FIA SOURCE NASAL SWAB
[2020-10-01] MEDS: DOCUSATE SODIUM 100 MG CAPSULE PO PRN (07:10)
[2020-10-01] MEDS: FERROUS SULFATE 325 MG EC TABLET PO SCH ×2 (07:10→16:35)
[2020-10-01] MEDS: ARIPiprazole 5 MG TABLET PO SCH (09:13)
[2020-10-01] MEDS: PHENYTOIN SODIUM 100 MG ER CAPSULE PO SCH (09:14)
[2020-10-01] MEDS: FUROSEMIDE 20 MG TABLET PO SCH (09:15)
[2020-10-01] MEDS: LevETIRAcetam 500 MG TABLET PO SCH ×2 (09:15→16:35)
[2020-10-01] MEDS: FLUoxetine HCL 20 MG CAPSULE PO SCH (09:15)
[2020-10-01] MEDS: OMEPRAZOLE 20 MG CAPSULE PO SCH (09:15)
[2020-10-01] MEDS: MAGNESIUM HYDROXIDE SUSPENSION 30 ML UDCUP PO PRN (09:17)
[2020-10-01] MEDS: NICOTINE 21 MG/24 HOUR PATCH TD SCH (09:24)
[2020-10-01 09:26] VITALS: BP 140/86
[2020-10-01 09:55] VITALS: BP 140/86
[2020-10-01] MEDS: IBUPROFEN 400 MG TABLET PO PRN (09:57)
[2020-10-01 10:57] VITALS: BP 121/85
[2020-10-01 16:08] VITALS: BP 139/79
[2020-10-01 20:10] VITALS: BP 138/80
[2020-10-01] MEDS: ACETAMINOPHEN 325 MG TABLET PO PRN (20:10)
[2020-10-01 21:10] VITALS: BP 135/78
[2020-10-01] MEDS: ZOLPIDEM TARTRATE 10 MG TABLET PO PRN (21:57)
[2020-10-02] MEDS: HALOPERIDOL 5 MG TABLET PO PRN (02:57)
[2020-10-02 03:34] VITALS: BP 134/70
[2020-10-02] MEDS: LORazepam 2 MG TABLET PO PRN ×2 (05:31→17:48)
[2020-10-02] MEDS: FERROUS SULFATE 325 MG EC TABLET PO SCH ×2 (07:03→16:01)
[2020-10-02] MEDS: FLUoxetine HCL 20 MG CAPSULE PO SCH (09:08)
[2020-10-02] MEDS: LevETIRAcetam 500 MG TABLET PO SCH ×2 (09:08→16:01)
[2020-10-02] MEDS: FUROSEMIDE 20 MG TABLET PO SCH (09:08)
[2020-10-02] MEDS: PHENYTOIN SODIUM 100 MG ER CAPSULE PO SCH (09:08)
[2020-10-02] MEDS: OMEPRAZOLE 20 MG CAPSULE PO SCH (09:09)
[2020-10-02] MEDS: ARIPiprazole 5 MG TABLET PO SCH (09:09)
[2020-10-02] MEDS: NICOTINE 21 MG/24 HOUR PATCH TD SCH (09:15)
[2020-10-02] MEDS: IBUPROFEN 400 MG TABLET PO PRN (13:27)
[2020-10-02 17:14] VITALS: BP 105/61
[2020-10-02] MEDS: ZOLPIDEM TARTRATE 10 MG TABLET PO PRN (21:03)
[2020-10-03 00:16] VITALS: BP 114/69
[2020-10-03] MEDS: MAGNESIUM HYDROXIDE SUSPENSION 30 ML UDCUP PO PRN ×2 (00:16→16:23)
[2020-10-03] MEDS: LORazepam 2 MG TABLET PO PRN ×2 (00:16→18:42)
[2020-10-03] MEDS: HALOPERIDOL 5 MG TABLET PO PRN ×2 (00:16→18:42)
[2020-10-03] MEDS: FERROUS SULFATE 325 MG EC TABLET PO SCH ×2 (06:48→16:23)
[2020-10-03 09:01] VITALS: BP 117/61
[2020-10-03] MEDS: MAG HYDROX/AL HYDROX/SIMETH ES 30 ML SUSPENSION UDCUP PO PRN (09:21)
[2020-10-03] MEDS: ARIPiprazole 5 MG TABLET PO SCH (09:22)
[2020-10-03] MEDS: LevETIRAcetam 500 MG TABLET PO SCH ×2 (09:22→16:23)
[2020-10-03] MEDS: OMEPRAZOLE 20 MG CAPSULE PO SCH (09:22)
[2020-10-03] MEDS: PHENYTOIN SODIUM 100 MG ER CAPSULE PO SCH (09:22)
[2020-10-03] MEDS: NICOTINE 21 MG/24 HOUR PATCH TD SCH (09:23)
[2020-10-03] MEDS: FLUoxetine HCL 20 MG CAPSULE PO SCH (09:23)
[2020-10-03] MEDS: FUROSEMIDE 20 MG TABLET PO SCH (09:23)
[2020-10-03] MEDS: DOCUSATE SODIUM 100 MG CAPSULE PO PRN (11:27)
[2020-10-03 16:00] VITALS: BP 121/65
[2020-10-04 01:50] VITALS: BP 107/60
[2020-10-04] MEDS: ZOLPIDEM TARTRATE 10 MG TABLET PO PRN ×2 (01:50→21:18)
[2020-10-04] MEDS: FERROUS SULFATE 325 MG EC TABLET PO SCH ×2 (06:32→16:35)
[2020-10-04 08:25] VITALS: BP 127/61
[2020-10-04] MEDS: FLUoxetine HCL 20 MG CAPSULE PO SCH (09:03)
[2020-10-04] MEDS: ARIPiprazole 5 MG TABLET PO SCH (09:04)
[2020-10-04] MEDS: LevETIRAcetam 500 MG TABLET PO SCH ×2 (09:04→16:36)
[2020-10-04] MEDS: PHENYTOIN SODIUM 100 MG ER CAPSULE PO SCH (09:04)
[2020-10-04] MEDS: FUROSEMIDE 20 MG TABLET PO SCH (09:04)
[2020-10-04] MEDS: OMEPRAZOLE 20 MG CAPSULE PO SCH (09:04)
[2020-10-04 09:15] VITALS: BP 127/61
[2020-10-04] MEDS: IBUPROFEN 400 MG TABLET PO PRN (09:20)
[2020-10-04] MEDS: NICOTINE 21 MG/24 HOUR PATCH TD SCH (09:20)
[2020-10-04] MEDS: LORazepam 2 MG TABLET PO PRN (09:20)
[2020-10-04] MEDS: HALOPERIDOL 5 MG TABLET PO PRN (09:20)
[2020-10-04] MEDS: METOCLOPRAMIDE HCL 5 MG TABLET PO PRN (14:14)
[2020-10-04 16:05] VITALS: BP 119/78
[2020-10-04] MEDS: MAG HYDROX/AL HYDROX/SIMETH ES 30 ML SUSPENSION UDCUP PO PRN (19:16)
[2020-10-05 00:20] VITALS: BP 126/60
[2020-10-05] MEDS: ALBUTEROL SULFATE HFA 90 MCG/PUFF 8 GM INHALER IH PRN (01:30)
[2020-10-05 03:30] VITALS: BP 119/57
[2020-10-05 04:07] VITALS: BP 134/53
[2020-10-05] MEDS: IBUPROFEN 400 MG TABLET PO PRN (04:12)
[2020-10-05] MEDS: FERROUS SULFATE 325 MG EC TABLET PO SCH ×2 (06:58→16:05)
[2020-10-05] MEDS: OMEPRAZOLE 20 MG CAPSULE PO SCH (08:59)
[2020-10-05] MEDS: ARIPiprazole 15 MG TABLET PO SCH (08:59)
[2020-10-05] MEDS: FLUoxetine HCL 20 MG CAPSULE PO SCH (08:59)
[2020-10-05] MEDS: FUROSEMIDE 20 MG TABLET PO SCH (09:00)
[2020-10-05] MEDS: LevETIRAcetam 500 MG TABLET PO SCH ×2 (09:00→16:05)
[2020-10-05] MEDS: PHENYTOIN SODIUM 100 MG ER CAPSULE PO SCH (09:00)
[2020-10-05 09:32] VITALS: BP 120/67
[2020-10-05] MEDS: ACETAMINOPHEN 325 MG TABLET PO PRN (09:40)
[2020-10-05] MEDS: LORazepam 2 MG TABLET PO PRN (09:40)
[2020-10-05] MEDS: HALOPERIDOL 5 MG TABLET PO PRN (09:40)
[2020-10-05] MEDS: METOCLOPRAMIDE HCL 5 MG TABLET PO PRN (09:40)
[2020-10-05] MEDS: NICOTINE 21 MG/24 HOUR PATCH TD SCH (09:42)
[2020-10-05 16:00] VITALS: BP 118/60
[2020-10-05] MEDS: ZOLPIDEM TARTRATE 10 MG TABLET PO PRN (21:05)
[2020-10-06] MEDS: HALOPERIDOL 5 MG TABLET PO PRN ×2 (01:43→16:33)
[2020-10-06 03:55] VITALS: BP 136/63
[2020-10-06] MEDS: IBUPROFEN 400 MG TABLET PO PRN (04:00)
[2020-10-06] MEDS: FERROUS SULFATE 325 MG EC TABLET PO SCH ×2 (07:00→17:22)
[2020-10-06 10:07] VITALS: BP 104/65
[2020-10-06] MEDS: NICOTINE 21 MG/24 HOUR PATCH TD SCH (10:14)
[2020-10-06] MEDS: OMEPRAZOLE 20 MG CAPSULE PO SCH (10:14)
[2020-10-06] MEDS: ARIPiprazole 15 MG TABLET PO SCH (10:14)
[2020-10-06] MEDS: LevETIRAcetam 500 MG TABLET PO SCH ×2 (10:15→17:22)
[2020-10-06] MEDS: FLUoxetine HCL 20 MG CAPSULE PO SCH (10:15)
[2020-10-06] MEDS: FUROSEMIDE 20 MG TABLET PO SCH (10:15)
[2020-10-06] MEDS: PHENYTOIN SODIUM 100 MG ER CAPSULE PO SCH (10:15)
[2020-10-06 16:08] VITALS: BP 120/69
[2020-10-06] MEDS: ZOLPIDEM TARTRATE 10 MG TABLET PO PRN (20:23)
[2020-10-06] MEDS: LORazepam 2 MG TABLET PO PRN (20:23)
[2020-10-07 01:40] VITALS: BP 122/65
[2020-10-07] MEDS: IBUPROFEN 400 MG TABLET PO PRN (01:50)
[2020-10-07] MEDS: LORazepam 2 MG TABLET PO PRN ×3 (03:17→21:44)
[2020-10-07] MEDS: FERROUS SULFATE 325 MG EC TABLET PO SCH ×2 (07:07→17:08)
[2020-10-07] MEDS: PHENYTOIN SODIUM 100 MG ER CAPSULE PO SCH (08:37)
[2020-10-07] MEDS: ARIPiprazole 15 MG TABLET PO SCH (08:37)
[2020-10-07] MEDS: FLUoxetine HCL 20 MG CAPSULE PO SCH (08:38)
[2020-10-07] MEDS: LevETIRAcetam 500 MG TABLET PO SCH ×2 (08:40→17:08)
[2020-10-07] MEDS: OMEPRAZOLE 20 MG CAPSULE PO SCH (08:40)
[2020-10-07] MEDS: FUROSEMIDE 20 MG TABLET PO SCH (08:40)
[2020-10-07] MEDS: NICOTINE 21 MG/24 HOUR PATCH TD SCH (09:00)
[2020-10-07] MEDS: HALOPERIDOL 5 MG TABLET PO PRN ×2 (14:21→17:08)
[2020-10-07 16:18] VITALS: BP 121/71
[2020-10-07] MEDS: ZOLPIDEM TARTRATE 10 MG TABLET PO PRN (21:44)
[2020-10-08] MEDS: MAG HYDROX/AL HYDROX/SIMETH ES 30 ML SUSPENSION UDCUP PO PRN ×2 (01:06→18:42)
[2020-10-08 01:47] VITALS: BP 117/60
[2020-10-08] MEDS: FERROUS SULFATE 325 MG EC TABLET PO SCH ×2 (06:54→16:28)
[2020-10-08 08:04] VITALS: BP 111/70
[2020-10-08] MEDS: NICOTINE 21 MG/24 HOUR PATCH TD SCH (08:37)
[2020-10-08] MEDS: ARIPiprazole 15 MG TABLET PO SCH (08:37)
[2020-10-08] MEDS: FLUoxetine HCL 20 MG CAPSULE PO SCH (08:38)
[2020-10-08] MEDS: LevETIRAcetam 500 MG TABLET PO SCH ×2 (08:38→16:28)
[2020-10-08] MEDS: PHENYTOIN SODIUM 100 MG ER CAPSULE PO SCH (08:38)
[2020-10-08] MEDS: FUROSEMIDE 20 MG TABLET PO SCH (08:39)
[2020-10-08] MEDS: OMEPRAZOLE 20 MG CAPSULE PO SCH (08:39)
[2020-10-08] MEDS: LORazepam 2 MG TABLET PO PRN (11:43)
[2020-10-08 16:07] VITALS: BP 108/69
[2020-10-08 20:22] LABS: COVID AG,FIA SOURCE NASAL SWAB
[2020-10-08] MEDS: ZOLPIDEM TARTRATE 10 MG TABLET PO PRN (20:56)
[2020-10-08] MEDS: HALOPERIDOL 5 MG TABLET PO PRN (22:42)
[2020-10-09] MEDS: LORazepam 2 MG TABLET PO PRN ×2 (00:41→08:35)
[2020-10-09 00:43] VITALS: BP 129/64
[2020-10-09 06:40] VITALS: BP 101/52
[2020-10-09] MEDS: FERROUS SULFATE 325 MG EC TABLET PO SCH ×2 (06:46→16:22)
[2020-10-09 08:17] VITALS: BP 139/76
[2020-10-09 08:30] VITALS: BP 139/76
[2020-10-09] MEDS: IBUPROFEN 400 MG TABLET PO PRN (08:34)
[2020-10-09] MEDS: FUROSEMIDE 20 MG TABLET PO SCH (08:35)
[2020-10-09] MEDS: OMEPRAZOLE 20 MG CAPSULE PO SCH (08:35)
[2020-10-09] MEDS: LevETIRAcetam 500 MG TABLET PO SCH ×2 (08:35→16:22)
[2020-10-09] MEDS: PHENYTOIN SODIUM 100 MG ER CAPSULE PO SCH (08:35)
[2020-10-09] MEDS: ARIPiprazole 15 MG TABLET PO SCH (08:35)
[2020-10-09] MEDS: FLUoxetine HCL 20 MG CAPSULE PO SCH (08:35)
[2020-10-09] MEDS: METOCLOPRAMIDE HCL 5 MG TABLET PO PRN ×2 (08:40→23:48)
[2020-10-09] MEDS: HALOPERIDOL 5 MG TABLET PO PRN (10:07)
[2020-10-09] MEDS: NICOTINE 21 MG/24 HOUR PATCH TD SCH (10:08)
[2020-10-09 16:05] VITALS: BP 117/72
[2020-10-09] MEDS: MAG HYDROX/AL HYDROX/SIMETH ES 30 ML SUSPENSION UDCUP PO PRN (17:48)
[2020-10-10 00:11] VITALS: BP 116/67
[2020-10-10] MEDS: ZOLPIDEM TARTRATE 10 MG TABLET PO PRN (01:12)
[2020-10-10] MEDS: MAG HYDROX/AL HYDROX/SIMETH ES 30 ML SUSPENSION UDCUP PO PRN ×2 (01:12→19:14)
[2020-10-10] MEDS: FERROUS SULFATE 325 MG EC TABLET PO SCH ×2 (06:46→16:08)
[2020-10-10] MEDS: LORazepam 2 MG TABLET PO PRN ×2 (08:08→20:36)
[2020-10-10] MEDS: NICOTINE 21 MG/24 HOUR PATCH TD SCH (08:08)
[2020-10-10] MEDS: ARIPiprazole 15 MG TABLET PO SCH (08:08)
[2020-10-10] MEDS: LevETIRAcetam 500 MG TABLET PO SCH ×2 (08:08→16:08)
[2020-10-10] MEDS: OMEPRAZOLE 20 MG CAPSULE PO SCH (08:08)
[2020-10-10] MEDS: FUROSEMIDE 20 MG TABLET PO SCH (08:08)
[2020-10-10] MEDS: PHENYTOIN SODIUM 100 MG ER CAPSULE PO SCH (08:09)
[2020-10-10] MEDS: FLUoxetine HCL 20 MG CAPSULE PO SCH (08:09)
[2020-10-10 08:24] VITALS: BP 126/73
[2020-10-10 16:00] VITALS: BP 119/17
[2020-10-10] MEDS: HALOPERIDOL 5 MG TABLET PO PRN (16:22)
[2020-10-10 20:00] VITALS: BP 129/85
[2020-10-11 01:08] VITALS: BP 97/71
[2020-10-11] MEDS: ZOLPIDEM TARTRATE 10 MG TABLET PO PRN ×2 (01:12→21:07)
[2020-10-11] MEDS: HALOPERIDOL 5 MG TABLET PO PRN ×2 (02:53→16:45)
[2020-10-11] MEDS: LORazepam 2 MG TABLET PO PRN ×2 (02:53→21:07)
[2020-10-11] MEDS: METOCLOPRAMIDE HCL 5 MG TABLET PO PRN (03:14)
[2020-10-11] MEDS: FERROUS SULFATE 325 MG EC TABLET PO SCH ×2 (06:41→16:45)
[2020-10-11] MEDS: ARIPiprazole 15 MG TABLET PO SCH (08:51)
[2020-10-11] MEDS: FLUoxetine HCL 20 MG CAPSULE PO SCH (08:51)
[2020-10-11] MEDS: FUROSEMIDE 20 MG TABLET PO SCH (08:52)
[2020-10-11] MEDS: OMEPRAZOLE 20 MG CAPSULE PO SCH (08:53)
[2020-10-11] MEDS: LevETIRAcetam 500 MG TABLET PO SCH ×2 (08:53→16:45)
[2020-10-11] MEDS: PHENYTOIN SODIUM 100 MG ER CAPSULE PO SCH (08:53)
[2020-10-11] MEDS: NICOTINE 21 MG/24 HOUR PATCH TD SCH (08:54)
[2020-10-11 09:15] VITALS: BP 110/50
[2020-10-11 16:42] VITALS: BP 113/62
[2020-10-12 03:25] VITALS: BP 126/65
[2020-10-12] MEDS: HALOPERIDOL 5 MG TABLET PO PRN (03:36)
[2020-10-12] MEDS: FERROUS SULFATE 325 MG EC TABLET PO SCH ×2 (06:52→16:50)
[2020-10-12] MEDS: LEVOTHYROXINE SODIUM 50 MCG TABLET PO SCH (06:52)
[2020-10-12 08:06] VITALS: BP 106/79
[2020-10-12] MEDS: FUROSEMIDE 20 MG TABLET PO SCH (08:44)
[2020-10-12] MEDS: IBUPROFEN 400 MG TABLET PO PRN (08:44)
[2020-10-12] MEDS: OMEPRAZOLE 20 MG CAPSULE PO SCH (08:44)
[2020-10-12] MEDS: LevETIRAcetam 500 MG TABLET PO SCH ×2 (08:44→16:50)
[2020-10-12] MEDS: LORazepam 2 MG TABLET PO PRN (08:44)
[2020-10-12] MEDS: PHENYTOIN SODIUM 100 MG ER CAPSULE PO SCH (08:44)
[2020-10-12] MEDS: FLUoxetine HCL 20 MG CAPSULE PO SCH (08:44)
[2020-10-12] MEDS: ARIPiprazole 15 MG TABLET PO SCH (08:45)
[2020-10-12] MEDS: METOCLOPRAMIDE HCL 5 MG TABLET PO PRN (08:45)
[2020-10-12] MEDS: NICOTINE 21 MG/24 HOUR PATCH TD SCH (08:53)
[2020-10-12 16:35] VITALS: BP 95/70
[2020-10-12] MEDS: ZOLPIDEM TARTRATE 10 MG TABLET PO PRN (22:09)
[2020-10-13] MEDS: HALOPERIDOL 5 MG TABLET PO PRN ×3 (00:03→19:45)
[2020-10-13 04:02] VITALS: BP 110/63
[2020-10-13] MEDS: LEVOTHYROXINE SODIUM 50 MCG TABLET PO SCH (07:13)
[2020-10-13] MEDS: FERROUS SULFATE 325 MG EC TABLET PO SCH ×2 (07:13→16:20)
[2020-10-13 08:49] VITALS: BP 132/59
[2020-10-13] MEDS: ARIPiprazole 15 MG TABLET PO SCH (09:50)
[2020-10-13] MEDS: PHENYTOIN SODIUM 100 MG ER CAPSULE PO SCH (09:50)
[2020-10-13] MEDS: LevETIRAcetam 500 MG TABLET PO SCH ×2 (09:51→16:20)
[2020-10-13] MEDS: OMEPRAZOLE 20 MG CAPSULE PO SCH (09:51)
[2020-10-13] MEDS: FUROSEMIDE 20 MG TABLET PO SCH (09:51)
[2020-10-13] MEDS: FLUoxetine HCL 20 MG CAPSULE PO SCH (09:51)
[2020-10-13] MEDS: NICOTINE 21 MG/24 HOUR PATCH TD SCH (09:52)
[2020-10-13 16:01] VITALS: BP 105/65
[2020-10-13] MEDS: ZOLPIDEM TARTRATE 10 MG TABLET PO PRN (20:12)
[2020-10-14] MEDS: LORazepam 2 MG TABLET PO PRN (03:11)
[2020-10-14] MEDS: HALOPERIDOL 5 MG TABLET PO PRN ×2 (03:12→21:19)
[2020-10-14] MEDS: FERROUS SULFATE 325 MG EC TABLET PO SCH ×2 (06:51→16:04)
[2020-10-14] MEDS: LEVOTHYROXINE SODIUM 50 MCG TABLET PO SCH (06:51)
[2020-10-14] MEDS: NICOTINE 21 MG/24 HOUR PATCH TD SCH (08:54)
[2020-10-14] MEDS: PHENYTOIN SODIUM 100 MG ER CAPSULE PO SCH (08:55)
[2020-10-14] MEDS: ARIPiprazole 15 MG TABLET PO SCH (08:55)
[2020-10-14] MEDS: FUROSEMIDE 20 MG TABLET PO SCH (08:56)
[2020-10-14] MEDS: FLUoxetine HCL 20 MG CAPSULE PO SCH (08:56)
[2020-10-14] MEDS: LevETIRAcetam 500 MG TABLET PO SCH ×2 (08:56→16:04)
[2020-10-14] MEDS: OMEPRAZOLE 20 MG CAPSULE PO SCH (08:56)
[2020-10-14 09:00] VITALS: BP 104/63
[2020-10-14 16:00] VITALS: BP 124/87
[2020-10-14] MEDS: DOCUSATE SODIUM 100 MG CAPSULE PO PRN (20:18)
[2020-10-15] MEDS: LORazepam 2 MG TABLET PO PRN ×2 (00:29→08:24)
[2020-10-15] MEDS: ZOLPIDEM TARTRATE 10 MG TABLET PO PRN ×2 (00:29→20:39)
[2020-10-15] MEDS: FERROUS SULFATE 325 MG EC TABLET PO SCH ×2 (06:38→17:30)
[2020-10-15] MEDS: LEVOTHYROXINE SODIUM 50 MCG TABLET PO SCH (06:38)
[2020-10-15 08:14] VITALS: BP 115/74
[2020-10-15 08:21] VITALS: BP 115/74
[2020-10-15] MEDS: PHENYTOIN SODIUM 100 MG ER CAPSULE PO SCH (08:25)
[2020-10-15] MEDS: IBUPROFEN 400 MG TABLET PO PRN (08:25)
[2020-10-15] MEDS: METOCLOPRAMIDE HCL 5 MG TABLET PO PRN (08:25)
[2020-10-15] MEDS: OMEPRAZOLE 20 MG CAPSULE PO SCH (08:25)
[2020-10-15] MEDS: FUROSEMIDE 20 MG TABLET PO SCH (08:25)
[2020-10-15] MEDS: LevETIRAcetam 500 MG TABLET PO SCH ×2 (08:25→16:14)
[2020-10-15] MEDS: ARIPiprazole 15 MG TABLET PO SCH (08:25)
[2020-10-15] MEDS: FLUoxetine HCL 20 MG CAPSULE PO SCH (08:25)
[2020-10-15] MEDS: NICOTINE 21 MG/24 HOUR PATCH TD SCH (08:31)
[2020-10-15 16:08] VITALS: BP 103/65
[2020-10-16 00:05] VITALS: BP 110/67
[2020-10-16] MEDS: HALOPERIDOL 5 MG TABLET PO PRN ×3 (00:13→17:29)
[2020-10-16 04:08] VITALS: BP 92/50
[2020-10-16 05:51] VITALS: BP 121/72
[2020-10-16] MEDS: FERROUS SULFATE 325 MG EC TABLET PO SCH ×2 (07:01→17:29)
[2020-10-16] MEDS: LEVOTHYROXINE SODIUM 50 MCG TABLET PO SCH (07:01)
[2020-10-16 08:12] VITALS: BP 122/73
[2020-10-16] MEDS: OMEPRAZOLE 20 MG CAPSULE PO SCH (09:01)
[2020-10-16] MEDS: LevETIRAcetam 500 MG TABLET PO SCH ×2 (09:01→17:29)
[2020-10-16] MEDS: LORazepam 2 MG TABLET PO PRN ×2 (09:01→21:20)
[2020-10-16] MEDS: ARIPiprazole 15 MG TABLET PO SCH (09:01)
[2020-10-16] MEDS: FUROSEMIDE 20 MG TABLET PO SCH (09:01)
[2020-10-16] MEDS: IBUPROFEN 400 MG TABLET PO PRN (09:01)
[2020-10-16] MEDS: FLUoxetine HCL 20 MG CAPSULE PO SCH (09:01)
[2020-10-16] MEDS: PHENYTOIN SODIUM 100 MG ER CAPSULE PO SCH (09:01)
[2020-10-16] MEDS: NICOTINE 21 MG/24 HOUR PATCH TD SCH (09:11)
[2020-10-16] MEDS: METOCLOPRAMIDE HCL 5 MG TABLET PO PRN (09:11)
[2020-10-16 18:50] VITALS: BP 114/65
[2020-10-16] MEDS: ZOLPIDEM TARTRATE 10 MG TABLET PO PRN (21:20)
[2020-10-16 22:41] LABS: COVID AG,FIA SOURCE NASOPHARYNGEAL
[2020-10-17 01:44] VITALS: BP 100/67
[2020-10-17] MEDS: LORazepam 2 MG TABLET PO PRN ×2 (01:44→21:28)
[2020-10-17] MEDS: MAG HYDROX/AL HYDROX/SIMETH ES 30 ML SUSPENSION UDCUP PO PRN (01:44)
[2020-10-17] MEDS: HALOPERIDOL 5 MG TABLET PO PRN ×2 (01:44→17:42)
[2020-10-17 05:40] VITALS: BP 139/62
[2020-10-17] MEDS: ACETAMINOPHEN 325 MG TABLET PO PRN (05:45)
[2020-10-17] MEDS: FERROUS SULFATE 325 MG EC TABLET PO SCH ×2 (06:55→17:42)
[2020-10-17] MEDS: LEVOTHYROXINE SODIUM 50 MCG TABLET PO SCH (06:55)
[2020-10-17 08:10] VITALS: BP 125/70
[2020-10-17] MEDS: PHENYTOIN SODIUM 100 MG ER CAPSULE PO SCH (08:16)
[2020-10-17] MEDS: FLUoxetine HCL 20 MG CAPSULE PO SCH (08:16)
[2020-10-17] MEDS: ARIPiprazole 15 MG TABLET PO SCH (08:16)
[2020-10-17] MEDS: OMEPRAZOLE 20 MG CAPSULE PO SCH (08:16)
[2020-10-17] MEDS: NICOTINE 21 MG/24 HOUR PATCH TD SCH (08:16)
[2020-10-17] MEDS: FUROSEMIDE 20 MG TABLET PO SCH (08:16)
[2020-10-17] MEDS: LevETIRAcetam 500 MG TABLET PO SCH ×2 (08:16→17:42)
[2020-10-17 18:30] VITALS: BP 95/50
[2020-10-17] MEDS: ZOLPIDEM TARTRATE 10 MG TABLET PO PRN (21:28)
[2020-10-18 04:14] VITALS: BP 117/64
[2020-10-18] MEDS: FERROUS SULFATE 325 MG EC TABLET PO SCH ×2 (06:51→17:57)
[2020-10-18] MEDS: LEVOTHYROXINE SODIUM 50 MCG TABLET PO SCH (06:51)
[2020-10-18] MEDS: FUROSEMIDE 20 MG TABLET PO SCH (08:08)
[2020-10-18] MEDS: LevETIRAcetam 500 MG TABLET PO SCH ×2 (08:08→17:57)
[2020-10-18] MEDS: ARIPiprazole 15 MG TABLET PO SCH (08:08)
[2020-10-18] MEDS: PHENYTOIN SODIUM 100 MG ER CAPSULE PO SCH (08:08)
[2020-10-18] MEDS: IBUPROFEN 400 MG TABLET PO PRN (08:08)
[2020-10-18] MEDS: METOCLOPRAMIDE HCL 5 MG TABLET PO PRN (08:08)
[2020-10-18] MEDS: LORazepam 2 MG TABLET PO PRN ×2 (08:08→21:21)
[2020-10-18] MEDS: FLUoxetine HCL 20 MG CAPSULE PO SCH (08:08)
[2020-10-18] MEDS: OMEPRAZOLE 20 MG CAPSULE PO SCH (08:09)
[2020-10-18] MEDS: NICOTINE 21 MG/24 HOUR PATCH TD SCH (08:15)
[2020-10-18 08:24] VITALS: BP 107/56
[2020-10-18] MEDS: HALOPERIDOL 5 MG TABLET PO PRN (17:57)
[2020-10-18 18:30] VITALS: BP 95/48
[2020-10-18] MEDS: ZOLPIDEM TARTRATE 10 MG TABLET PO PRN (21:21)
[2020-10-19 00:15] VITALS: BP 123/72
[2020-10-19] MEDS: METOCLOPRAMIDE HCL 5 MG TABLET PO PRN ×2 (00:20→09:26)
[2020-10-19] MEDS: HALOPERIDOL 5 MG TABLET PO PRN ×2 (04:14→16:50)
[2020-10-19] MEDS: LEVOTHYROXINE SODIUM 50 MCG TABLET PO SCH (06:37)
[2020-10-19] MEDS: FERROUS SULFATE 325 MG EC TABLET PO SCH ×2 (06:37→16:50)
[2020-10-19 08:02] VITALS: BP 108/64
[2020-10-19 08:49] VITALS: BP 108/64
[2020-10-19] MEDS: FUROSEMIDE 20 MG TABLET PO SCH (08:52)
[2020-10-19] MEDS: ARIPiprazole 15 MG TABLET PO SCH (08:52)
[2020-10-19] MEDS: OMEPRAZOLE 20 MG CAPSULE PO SCH (08:52)
[2020-10-19] MEDS: FLUoxetine HCL 20 MG CAPSULE PO SCH (08:52)
[2020-10-19] MEDS: LORazepam 2 MG TABLET PO PRN ×2 (08:53→21:10)
[2020-10-19] MEDS: IBUPROFEN 400 MG TABLET PO PRN (08:53)
[2020-10-19] MEDS: PHENYTOIN SODIUM 100 MG ER CAPSULE PO SCH (08:53)
[2020-10-19] MEDS: LevETIRAcetam 500 MG TABLET PO SCH ×2 (08:53→16:50)
[2020-10-19] MEDS: NICOTINE 21 MG/24 HOUR PATCH TD SCH (09:24)
[2020-10-19 17:44] VITALS: BP 131/67
[2020-10-19] MEDS: ZOLPIDEM TARTRATE 10 MG TABLET PO PRN (21:10)
[2020-10-20 02:22] VITALS: BP 121/70
[2020-10-20] MEDS: HALOPERIDOL 5 MG TABLET PO PRN (02:22)
[2020-10-20] MEDS: IBUPROFEN 400 MG TABLET PO PRN (02:22)
[2020-10-20] MEDS: LEVOTHYROXINE SODIUM 50 MCG TABLET PO SCH (06:28)
[2020-10-20] MEDS: FERROUS SULFATE 325 MG EC TABLET PO SCH (06:31)
[2020-10-20 08:24] VITALS: BP 99/54
[2020-10-20] MEDS: ARIPiprazole 15 MG TABLET PO SCH (09:00)
[2020-10-20] MEDS: FLUoxetine HCL 20 MG CAPSULE PO SCH (09:15)
[2020-10-20] MEDS: LevETIRAcetam 500 MG TABLET PO SCH (09:15)
[2020-10-20] MEDS: OMEPRAZOLE 20 MG CAPSULE PO SCH (09:15)
[2020-10-20] MEDS: PHENYTOIN SODIUM 100 MG ER CAPSULE PO SCH (09:15)
[2020-10-20] MEDS: FUROSEMIDE 20 MG TABLET PO SCH (09:15)
[2020-10-20] MEDS: NICOTINE 21 MG/24 HOUR PATCH TD SCH (09:17)
[2020-10-20] MEDS ORDERED: ARIP15TA27 PO (12:51)
[2020-10-20] MEDS ORDERED: FLUO20SO2 PO (12:52)
[2020-10-20] MEDS ORDERED: FERR-89 PO (12:55)
[2020-10-20] MEDS ORDERED: FURO20 PO (12:55)
[2020-10-20] MEDS ORDERED: LEVE500T53 PO (12:59)
[2020-10-20] MEDS ORDERED: PHENY100 PO (13:00)
[2020-10-20] MEDS ORDERED: LEVO125T95 PO (13:03)
== END 2020-10-20 14:42 | disposition home or self-care (01) | DRG 750 ==
LOC: EMS 12:48 → 3EI 21:23
PROVIDERS: ADMIT Psychiatry & Neurology Child & Adolescent Psychiatry; ATTEND Psychiatry & Neurology Child & Adolescent Psychiatry
DX: F25.1 Schizoaffective disorder, depressive type (principal); G40.909 Epilepsy, unspecified, not intractable, without status epilepticus; I50.9 Heart failure, unspecified; R45.851 Suicidal ideations; I11.0 Hypertensive heart disease with heart failure; Z20.822 Contact with and (suspected) exposure to COVID-19; E78.5 Hyperlipidemia, unspecified; J44.9 Chronic obstructive pulmonary disease, unspecified; K21.9 Gastro-esophageal reflux disease without esophagitis; F15.90 Other stimulant use, unspecified, uncomplicated; F17.200 Nicotine dependence, unspecified, uncomplicated; E87.6 Hypokalemia; F10.10 Alcohol abuse, uncomplicated; D64.9 Anemia, unspecified; E03.9 Hypothyroidism, unspecified; I25.10 Atherosclerotic heart disease of native coronary artery without angina pectoris; F41.9 Anxiety disorder, unspecified; R45.87 Impulsiveness; Z59.0 Homelessness; Z91.19 Patient's noncompliance with other medical treatment and regimen
CPT/HCPCS: 70450; 80048; 80053; 80061; 81001; 83036; 83690; 84132; 84439; 84443; 85025; 97110; 97116; 97162; 97530; 99285; G0480; J3535; Q0162

== ENCOUNTER 2020-10-20 18:36 | Inpatient (IN) | payer MEDICAID, OTHER ==
[~2020-10-20] VITALS: Ht 182.9 cm; Wt 83.0 kg
[~2020-10-20 18:36] MED LIST changes: +ARIP15TA27 PO; +FERR-89 PO; +FLUO20SO2 PO; +LEVE500T20 PO; +LEVO125T95 PO; +PHENY100 PO
[2020-10-20] MEDS ORDERED: MECLIZINE HCL 25 MG TABLET PO ONE (22:30)
[2020-10-20] MEDS ORDERED: MAGNESIUM SULFATE 2 GM, MVI, ADULT NO.1 WITH VIT K 10 ML, THIAMINE 100 MG, FOLIC ACID 1... IV ONE ×5 (22:30)
[2020-10-20] MEDS ORDERED: ONDANSETRON HCL 4 MG/2 ML VIAL IVP ONE (22:30)
[2020-10-20 23:28] LABS: COVID AG,FIA SOURCE NASOPHARYNGEAL
[2020-10-20 23:31] LABS: BASOPHILS % (AUTO) 1.3 % (0.0-2.0); EOSINOPHILS % (AUTO) 3.1 % (1.0-6.0); HEMATOCRIT 31.3 % (41-53); HEMOGLOBIN 10.4 g/dL (13.5-17.5); LYMPHOCYTES # (AUTO) 2.3 K/uL (1.0-4.8); LYMPHOCYTES % (AUTO) 29.1 % (22.0-44.0); MEAN CORPUSCULAR HEMOGLOBIN 29.2 pg (26.0-34.0); MEAN CORPUSCULAR HGB CONC 33.1 G/dL (31.0-37.0); MEAN CORPUSCULAR VOLUME 88 fL (80-100); MONOCYTES # (AUTO) 0.3 K/uL (0.1-1.0); MONOCYTES % (AUTO) 4.3 % (2.0-9.0); NEUTROPHILS % (AUTO) 62.2 % (40.0-70.0); PLATELET COUNT (AUTO) 206 K/uL (150-450); RED BLOOD CELL COUNT(AUTO) 3.55 MIL/uL (4.50-5.90)
[2020-10-20 23:36] LABS: APPEARANCE,URINE CLEAR (CLEAR); BILIRUBIN,URINE NEGATIVE (NEGATIVE); GLUCOSE, URINE (UA) NEGATIVE (NEGATIVE); KETONES,URINE NEGATIVE (NEGATIVE); LEUKOCYTE ESTERASE ,URINE NEGATIVE (NEGATIVE); NITRATE,URINE NEGATIVE (NEGATIVE); OCCULT BLOOD,URINE NEGATIVE (NEGATIVE); PH,URINE 5.5 (5.0-8.0); PROTEIN,URINE NEGATIVE (NEGATIVE); UROBILINOGEN,URINE 0.2 mg/dL (<=1.0)
[2020-10-20 23:42] LABS: AMPHET/METH SCREEN,URINE NEGATIVE (NEGATIVE); BARBITURATE SCREEN, URINE NEGATIVE (NEGATIVE); BENZODIAZEPINES SCREEN,URINE NEGATIVE (NEGATIVE); CANNABINOID SCREEN,URINE NEGATIVE (NEGATIVE); COCAINE SCREEN,URINE NEGATIVE (NEGATIVE); METHADONE SCREEN, URINE NEGATIVE (NEGATIVE); OPIATE SCREEN,URINE NEGATIVE (NEGATIVE)
[2020-10-20 23:44] LABS: ANION GAP 7 mmol/L (8-16); CALCIUM, TOTAL 9.1 mg/dL (8.8-10.5); CARBON DIOXIDE 28 mmol/L (22-29); CHLORIDE 102 mmol/L (98-107); CREATININE 1.81 mg/dL (0.60-1.30); GLOMERULAR FILTR. RATE CALC 39 mL/min (>60); GLUCOSE,RANDOM 103 mg/dL (70-110); POTASSIUM 4.6 mmol/L (3.5-5.1); SODIUM SERUM 137 mmol/L (136-145); UREA NITROGEN, BLOOD 36 mg/dL (7-18)
[2020-10-20 23:49] LABS: INR 1.1 (0.9-1.1); PROTHROMBIN TIME 11.9 SEC (9.4-11.6)
[2020-10-20 23:53] LABS: LACTIC ACID 1.4 mmol/L (0.4-2.0)
[2020-10-21 00:03] LABS: PHENCYCLIDINE SCREEN,URINE NEGATIVE (NEGATIVE)
[2020-10-21 00:10] LABS: ALANINE AMINOTRANSFERASE 49 U/L (12-78); ALBUMIN 4.2 g/dL (3.4-5.0); ALKALINE PHOSPHATASE 111 U/L (46-116); ASPARTATE AMINOTRANSFERASE 29 U/L (15-37); BILIRUBIN,TOTAL 0.3 mg/dL (0.1-1.0); CREATINE KINASE, TOTAL ONLY 109 U/L (39-308); LIPASE 203 U/L (73-393); PHENYTOIN (DILANTIN) 22.8 mcg/mL (10.0-20.0); TOTAL PROTEIN, SERUM 8.4 g/dL (6.4-8.2)
[2020-10-21 00:11] LABS: SALICYLATE 2.6 mg/dL (2.8-20.0)
[2020-10-21 00:15] LABS: BACTERIA,URINE None Seen /HPF (None Seen); RBC,URINE None Seen /HPF (0-2); WBC,URINE None Seen /HPF (0-5)
[2020-10-21 00:37] LABS: FREE T4 (FREE THYROXINE) 0.26 ng/dL (0.76-1.46)
[2020-10-21 00:38] LABS: ACETAMINOPHEN < 2 mcg/mL (10-30)
[2020-10-21] MEDS: LORazepam 2 MG TABLET PO PRN ×2 (04:36→19:54)
[2020-10-21] MEDS: ZOLPIDEM TARTRATE 10 MG TABLET PO PRN (19:54)
[2020-10-21] MEDS: OLANZapine 5 MG TABLET PO PRN (19:55)
[2020-10-22 07:15] LABS: CHOL/HDL RATIO 6.9 (4.2-7.3)
[2020-10-22 19:21] VITALS: BP 124/63
[2020-10-22] MEDS: ZOLPIDEM TARTRATE 10 MG TABLET PO PRN (22:47)
[2020-10-22] MEDS: LORazepam 2 MG TABLET PO PRN (22:47)
[2020-10-23] MEDS: OMEPRAZOLE 20 MG CAPSULE PO SCH (06:55)
[2020-10-23] MEDS: LEVOTHYROXINE SODIUM 50 MCG TABLET PO SCH (06:55)
[2020-10-23] MEDS: FERROUS SULFATE 325 MG EC TABLET PO SCH ×2 (06:55→19:47)
[2020-10-23] MEDS: LORazepam 2 MG TABLET PO PRN (08:33)
[2020-10-23] MEDS: OLANZapine 5 MG TABLET PO PRN ×2 (08:34→19:47)
[2020-10-23] MEDS: PHENYTOIN SODIUM 100 MG ER CAPSULE PO SCH (08:34)
[2020-10-23] MEDS: FUROSEMIDE 20 MG TABLET PO SCH (08:34)
[2020-10-23] MEDS: NICOTINE 14 MG/24 HOUR PATCH TD SCH (08:34)
[2020-10-23 12:14] VITALS: BP 146/63
[2020-10-23 16:23] VITALS: BP 119/79
[2020-10-24] MEDS: OMEPRAZOLE 20 MG CAPSULE PO SCH (06:45)
[2020-10-24] MEDS: LEVOTHYROXINE SODIUM 50 MCG TABLET PO SCH (06:45)
[2020-10-24] MEDS: FERROUS SULFATE 325 MG EC TABLET PO SCH ×2 (06:46→17:20)
[2020-10-24 08:18] VITALS: BP 132/74
[2020-10-24] MEDS ORDERED: ACETAMINOPHEN 325 MG TABLET PO PRN (08:30)
[2020-10-24] MEDS ORDERED: CloNIDine HCL 0.1 MG TABLET PO PRN (08:30)
[2020-10-24] MEDS ORDERED: MAG HYDROX/AL HYDROX/SIMETH ES 30 ML SUSPENSION UDCUP PO PRN (08:30)
[2020-10-24] MEDS ORDERED: NICOTINE 14 MG/24 HOUR PATCH TD PRN (08:30)
[2020-10-24] MEDS ORDERED: PETROLATUM,WHITE 28 GM JELLY TP PRN (08:30)
[2020-10-24] MEDS ORDERED: ONDANSETRON HCL 4 MG TABLET PO PRN (08:30)
[2020-10-24] MEDS ORDERED: ALBUTEROL SULFATE HFA 90 MCG/PUFF 8 GM INHALER IH PRN (08:30)
[2020-10-24] MEDS ORDERED: GuaiFENesin/D-METHORPHAN [SUGAR-FREE] 200-20MG/10 ML SYRUP UDCUP PO PRN (08:30)
[2020-10-24] MEDS ORDERED: LOPERAMIDE HCL 2 MG CAPSULE PO PRN (08:30)
[2020-10-24] MEDS: NICOTINE 14 MG/24 HOUR PATCH TD SCH (09:00)
[2020-10-24] MEDS: OLANZapine 5 MG TABLET PO PRN ×2 (11:25→17:20)
[2020-10-24] MEDS: ARIPiprazole 15 MG TABLET PO SCH (11:25)
[2020-10-24] MEDS: PHENYTOIN SODIUM 100 MG ER CAPSULE PO SCH (11:25)
[2020-10-24] MEDS: FLUoxetine HCL 20 MG CAPSULE PO SCH (11:26)
[2020-10-24] MEDS: LORazepam 2 MG TABLET PO PRN (11:26)
[2020-10-24] MEDS: FUROSEMIDE 20 MG TABLET PO SCH (11:26)
[2020-10-24 16:02] VITALS: BP 93/57
[2020-10-24] MEDS: MUPIROCIN CALCIUM 2% 22 GM OINTMENT NASAL SCH (17:19)
[2020-10-25] MEDS: LEVOTHYROXINE SODIUM 50 MCG TABLET PO SCH (06:57)
[2020-10-25] MEDS: OMEPRAZOLE 20 MG CAPSULE PO SCH (06:57)
[2020-10-25] MEDS: FERROUS SULFATE 325 MG EC TABLET PO SCH ×2 (06:57→18:35)
[2020-10-25 08:15] VITALS: BP 153/60
[2020-10-25] MEDS: FUROSEMIDE 20 MG TABLET PO SCH (08:21)
[2020-10-25] MEDS: MUPIROCIN CALCIUM 2% 22 GM OINTMENT NASAL SCH ×2 (08:21→15:57)
[2020-10-25] MEDS: PHENYTOIN SODIUM 100 MG ER CAPSULE PO SCH (08:21)
[2020-10-25] MEDS: FLUoxetine HCL 20 MG CAPSULE PO SCH (08:21)
[2020-10-25] MEDS: ARIPiprazole 15 MG TABLET PO SCH (08:23)
[2020-10-25] MEDS: NICOTINE 14 MG/24 HOUR PATCH TD SCH (11:06)
[2020-10-25] MEDS: OLANZapine 5 MG TABLET PO PRN (15:58)
[2020-10-25 16:08] VITALS: BP 110/49
[2020-10-26 00:45] VITALS: BP 103/52
[2020-10-26] MEDS: FERROUS SULFATE 325 MG EC TABLET PO SCH ×2 (06:51→16:32)
[2020-10-26] MEDS: OMEPRAZOLE 20 MG CAPSULE PO SCH (06:52)
[2020-10-26] MEDS: LEVOTHYROXINE SODIUM 50 MCG TABLET PO SCH (06:52)
[2020-10-26] MEDS: OLANZapine 5 MG TABLET PO PRN (08:08)
[2020-10-26] MEDS: PHENYTOIN SODIUM 100 MG ER CAPSULE PO SCH (08:08)
[2020-10-26] MEDS: ARIPiprazole 15 MG TABLET PO SCH (08:09)
[2020-10-26] MEDS: NICOTINE 14 MG/24 HOUR PATCH TD SCH (08:10)
[2020-10-26] MEDS: FUROSEMIDE 20 MG TABLET PO SCH (08:10)
[2020-10-26] MEDS: MUPIROCIN CALCIUM 2% 22 GM OINTMENT NASAL SCH ×2 (08:10→16:32)
[2020-10-26] MEDS: FLUoxetine HCL 20 MG CAPSULE PO SCH (08:10)
[2020-10-26] MEDS: LORazepam 2 MG TABLET PO PRN ×3 (08:11→21:57)
[2020-10-26 08:13] VITALS: BP 124/90
[2020-10-26 10:23] LABS: COVID AG,FIA SOURCE NASOPHARYNGEAL
[2020-10-26 16:00] VITALS: BP 101/58
[2020-10-26] MEDS: ZOLPIDEM TARTRATE 10 MG TABLET PO PRN (20:17)
[2020-10-27] MEDS: OMEPRAZOLE 20 MG CAPSULE PO SCH (06:51)
[2020-10-27] MEDS: FERROUS SULFATE 325 MG EC TABLET PO SCH ×2 (06:51→17:54)
[2020-10-27] MEDS: LEVOTHYROXINE SODIUM 50 MCG TABLET PO SCH (06:52)
[2020-10-27] MEDS: FUROSEMIDE 20 MG TABLET PO SCH (08:02)
[2020-10-27] MEDS: NICOTINE 14 MG/24 HOUR PATCH TD SCH (08:02)
[2020-10-27] MEDS: FLUoxetine HCL 20 MG CAPSULE PO SCH (08:02)
[2020-10-27] MEDS: LORazepam 2 MG TABLET PO PRN ×2 (08:02→14:40)
[2020-10-27] MEDS: PHENYTOIN SODIUM 100 MG ER CAPSULE PO SCH (08:03)
[2020-10-27] MEDS: OLANZapine 5 MG TABLET PO PRN ×2 (08:03→14:40)
[2020-10-27] MEDS: MUPIROCIN CALCIUM 2% 22 GM OINTMENT NASAL SCH ×2 (08:03→16:09)
[2020-10-27] MEDS: ARIPiprazole 15 MG TABLET PO SCH (08:03)
[2020-10-27 08:40] VITALS: BP 106/56
[2020-10-27] MEDS: IBUPROFEN 400 MG TABLET PO PRN (14:40)
[2020-10-27 16:17] VITALS: BP 118/74
[2020-10-28] MEDS: OMEPRAZOLE 20 MG CAPSULE PO SCH (06:48)
[2020-10-28] MEDS: FERROUS SULFATE 325 MG EC TABLET PO SCH ×2 (06:48→17:30)
[2020-10-28] MEDS: LEVOTHYROXINE SODIUM 50 MCG TABLET PO SCH (06:48)
[2020-10-28 08:08] VITALS: BP 135/73
[2020-10-28] MEDS: FUROSEMIDE 20 MG TABLET PO SCH (08:23)
[2020-10-28] MEDS: ARIPiprazole 15 MG TABLET PO SCH (08:23)
[2020-10-28] MEDS: NICOTINE 14 MG/24 HOUR PATCH TD SCH ×2 (08:23→08:41)
[2020-10-28] MEDS: OLANZapine 5 MG TABLET PO PRN ×2 (08:23→16:24)
[2020-10-28] MEDS: FLUoxetine HCL 20 MG CAPSULE PO SCH (08:24)
[2020-10-28] MEDS: IBUPROFEN 400 MG TABLET PO PRN (08:24)
[2020-10-28] MEDS: PHENYTOIN SODIUM 100 MG ER CAPSULE PO SCH (08:24)
[2020-10-28] MEDS: LORazepam 2 MG TABLET PO PRN (08:25)
[2020-10-28] MEDS: MUPIROCIN CALCIUM 2% 22 GM OINTMENT NASAL SCH ×2 (08:25→16:22)
[2020-10-28 16:18] VITALS: BP 93/67
[2020-10-29 03:30] VITALS: BP 112/70
[2020-10-29] MEDS: IBUPROFEN 400 MG TABLET PO PRN (03:30)
[2020-10-29] MEDS: LEVOTHYROXINE SODIUM 50 MCG TABLET PO SCH (06:58)
[2020-10-29] MEDS: FERROUS SULFATE 325 MG EC TABLET PO SCH ×2 (06:58→16:40)
[2020-10-29] MEDS: OMEPRAZOLE 20 MG CAPSULE PO SCH (06:58)
[2020-10-29 08:13] VITALS: BP 127/45
[2020-10-29] MEDS: ARIPiprazole 15 MG TABLET PO SCH (08:18)
[2020-10-29] MEDS: FLUoxetine HCL 20 MG CAPSULE PO SCH (08:18)
[2020-10-29] MEDS: FUROSEMIDE 20 MG TABLET PO SCH (08:18)
[2020-10-29] MEDS: PHENYTOIN SODIUM 100 MG ER CAPSULE PO SCH (08:19)
[2020-10-29] MEDS: NICOTINE 14 MG/24 HOUR PATCH TD SCH (08:26)
[2020-10-29] MEDS: MUPIROCIN CALCIUM 2% 22 GM OINTMENT NASAL SCH (08:30)
[2020-10-29 14:38] VITALS: BP 156/87
[2020-10-29] MEDS: LORazepam 2 MG TABLET PO PRN ×3 (14:40→20:31)
[2020-10-29] MEDS: OLANZapine 5 MG TABLET PO PRN (14:40)
[2020-10-29 16:11] VITALS: BP 121/78
[2020-10-29] MEDS: ZOLPIDEM TARTRATE 10 MG TABLET PO PRN (20:31)
[2020-10-30 01:28] VITALS: BP 126/65
[2020-10-30] MEDS: LEVOTHYROXINE SODIUM 50 MCG TABLET PO SCH (06:43)
[2020-10-30] MEDS: OMEPRAZOLE 20 MG CAPSULE PO SCH (06:44)
[2020-10-30] MEDS: FERROUS SULFATE 325 MG EC TABLET PO SCH ×2 (06:44→17:02)
[2020-10-30 08:22] VITALS: BP 124/68
[2020-10-30] MEDS: FLUoxetine HCL 20 MG CAPSULE PO SCH (09:23)
[2020-10-30] MEDS: PHENYTOIN SODIUM 100 MG ER CAPSULE PO SCH (09:23)
[2020-10-30] MEDS: NICOTINE 14 MG/24 HOUR PATCH TD SCH (09:23)
[2020-10-30] MEDS: ARIPiprazole 15 MG TABLET PO SCH (09:23)
[2020-10-30] MEDS: FUROSEMIDE 20 MG TABLET PO SCH (09:25)
[2020-10-30] MEDS: LORazepam 2 MG TABLET PO PRN (13:03)
[2020-10-30] MEDS: OLANZapine 5 MG TABLET PO PRN ×2 (13:03→17:02)
[2020-10-30 16:15] VITALS: BP 100/69
[2020-10-31] MEDS: OMEPRAZOLE 20 MG CAPSULE PO SCH (06:44)
[2020-10-31] MEDS: FERROUS SULFATE 325 MG EC TABLET PO SCH ×2 (06:44→16:28)
[2020-10-31] MEDS: LEVOTHYROXINE SODIUM 50 MCG TABLET PO SCH (06:44)
[2020-10-31] MEDS: ARIPiprazole 15 MG TABLET PO SCH (08:04)
[2020-10-31] MEDS: NICOTINE 14 MG/24 HOUR PATCH TD SCH (08:04)
[2020-10-31] MEDS: LORazepam 2 MG TABLET PO PRN ×2 (08:04→13:20)
[2020-10-31] MEDS: OLANZapine 5 MG TABLET PO PRN ×2 (08:04→13:20)
[2020-10-31] MEDS: FLUoxetine HCL 20 MG CAPSULE PO SCH (08:05)
[2020-10-31] MEDS: PHENYTOIN SODIUM 100 MG ER CAPSULE PO SCH (08:05)
[2020-10-31] MEDS: FUROSEMIDE 20 MG TABLET PO SCH (08:05)
[2020-10-31 08:23] VITALS: BP 129/67
[2020-10-31 16:00] VITALS: BP 100/60
[2020-11-01] MEDS: LEVOTHYROXINE SODIUM 50 MCG TABLET PO SCH (06:44)
[2020-11-01] MEDS: OMEPRAZOLE 20 MG CAPSULE PO SCH (06:44)
[2020-11-01] MEDS: FERROUS SULFATE 325 MG EC TABLET PO SCH ×2 (06:44→19:35)
[2020-11-01 08:00] VITALS: BP 127/57
[2020-11-01] MEDS: LORazepam 2 MG TABLET PO PRN (09:13)
[2020-11-01] MEDS: FLUoxetine HCL 20 MG CAPSULE PO SCH (09:13)
[2020-11-01] MEDS: FUROSEMIDE 20 MG TABLET PO SCH (09:13)
[2020-11-01] MEDS: OLANZapine 5 MG TABLET PO PRN ×3 (09:13→20:45)
[2020-11-01] MEDS: PHENYTOIN SODIUM 100 MG ER CAPSULE PO SCH (09:13)
[2020-11-01] MEDS: ARIPiprazole 15 MG TABLET PO SCH (09:13)
[2020-11-01] MEDS: NICOTINE 14 MG/24 HOUR PATCH TD SCH (09:14)
[2020-11-01 16:03] VITALS: BP 110/70
[2020-11-02] MEDS: FERROUS SULFATE 325 MG EC TABLET PO SCH ×2 (06:40→16:50)
[2020-11-02] MEDS: LEVOTHYROXINE SODIUM 50 MCG TABLET PO SCH (06:40)
[2020-11-02] MEDS: OMEPRAZOLE 20 MG CAPSULE PO SCH (06:40)
[2020-11-02 08:39] VITALS: BP 125/58
[2020-11-02] MEDS: NICOTINE 14 MG/24 HOUR PATCH TD SCH (09:01)
[2020-11-02] MEDS: LORazepam 2 MG TABLET PO PRN ×2 (09:01→16:50)
[2020-11-02] MEDS: PHENYTOIN SODIUM 100 MG ER CAPSULE PO SCH (09:01)
[2020-11-02] MEDS: OLANZapine 5 MG TABLET PO PRN (09:02)
[2020-11-02] MEDS: ARIPiprazole 15 MG TABLET PO SCH (09:02)
[2020-11-02] MEDS: FLUoxetine HCL 20 MG CAPSULE PO SCH (09:02)
[2020-11-02] MEDS: FUROSEMIDE 20 MG TABLET PO SCH (09:04)
[2020-11-02 10:13] LABS: COVID AG,FIA SOURCE NASOPHARYNGEAL
[2020-11-02 16:27] VITALS: BP 101/72
[2020-11-02] MEDS: ZOLPIDEM TARTRATE 10 MG TABLET PO PRN (20:35)
[2020-11-03 05:38] VITALS: BP 105/52
[2020-11-03 06:16] LABS: ALANINE AMINOTRANSFERASE 36 U/L (12-78); ALBUMIN 3.3 g/dL (3.4-5.0); ALKALINE PHOSPHATASE 106 U/L (46-116); ANION GAP 7 mmol/L (8-16); ASPARTATE AMINOTRANSFERASE 23 U/L (15-37); BILIRUBIN,TOTAL 0.2 mg/dL (0.1-1.0); CALCIUM, TOTAL 8.4 mg/dL (8.8-10.5); CARBON DIOXIDE 27 mmol/L (22-29); CHLORIDE 110 mmol/L (98-107); CREATININE 1.05 mg/dL (0.60-1.30); GLOMERULAR FILTR. RATE CALC > 60 mL/min (>60); GLUCOSE,RANDOM 89 mg/dL (70-110); PHOSPHORUS 3.9 mg/dL (2.5-4.9); POTASSIUM 4.4 mmol/L (3.5-5.1); SODIUM SERUM 144 mmol/L (136-145); TOTAL PROTEIN, SERUM 7.3 g/dL (6.4-8.2); UREA NITROGEN, BLOOD 26 mg/dL (7-18)
[2020-11-03] MEDS: OMEPRAZOLE 20 MG CAPSULE PO SCH (06:45)
[2020-11-03] MEDS: FERROUS SULFATE 325 MG EC TABLET PO SCH ×2 (06:45→16:32)
[2020-11-03] MEDS: LEVOTHYROXINE SODIUM 125 MCG TABLET PO SCH (06:45)
[2020-11-03 08:01] VITALS: BP 107/54
[2020-11-03] MEDS: FUROSEMIDE 20 MG TABLET PO SCH (08:39)
[2020-11-03] MEDS: ARIPiprazole 15 MG TABLET PO SCH (08:39)
[2020-11-03] MEDS: FLUoxetine HCL 20 MG CAPSULE PO SCH (08:40)
[2020-11-03] MEDS: PHENYTOIN SODIUM 100 MG ER CAPSULE PO SCH (08:40)
[2020-11-03] MEDS: NICOTINE 14 MG/24 HOUR PATCH TD SCH (08:41)
[2020-11-03] MEDS: LORazepam 2 MG TABLET PO PRN (12:24)
[2020-11-03 16:10] VITALS: BP 116/63
[2020-11-04 04:21] VITALS: BP 123/50
[2020-11-04] MEDS: OMEPRAZOLE 20 MG CAPSULE PO SCH (06:52)
[2020-11-04] MEDS: FERROUS SULFATE 325 MG EC TABLET PO SCH ×2 (06:52→16:18)
[2020-11-04] MEDS: LEVOTHYROXINE SODIUM 125 MCG TABLET PO SCH (06:53)
[2020-11-04 08:13] VITALS: BP 120/61
[2020-11-04] MEDS: FUROSEMIDE 20 MG TABLET PO SCH (08:18)
[2020-11-04] MEDS: ARIPiprazole 15 MG TABLET PO SCH (08:18)
[2020-11-04] MEDS: FLUoxetine HCL 20 MG CAPSULE PO SCH (08:18)
[2020-11-04] MEDS: PHENYTOIN SODIUM 100 MG ER CAPSULE PO SCH (08:18)
[2020-11-04] MEDS: NICOTINE 14 MG/24 HOUR PATCH TD SCH (08:19)
[2020-11-04] MEDS: LORazepam 2 MG TABLET PO PRN (12:50)
[2020-11-04 16:03] VITALS: BP 117/65
[2020-11-04] MEDS: ZOLPIDEM TARTRATE 10 MG TABLET PO PRN (23:20)
[2020-11-05 00:02] VITALS: BP 115/64
[2020-11-05] MEDS: OMEPRAZOLE 20 MG CAPSULE PO SCH (06:59)
[2020-11-05] MEDS: LEVOTHYROXINE SODIUM 125 MCG TABLET PO SCH (07:00)
[2020-11-05] MEDS: FERROUS SULFATE 325 MG EC TABLET PO SCH ×2 (07:00→16:35)
[2020-11-05] MEDS: FUROSEMIDE 20 MG TABLET PO SCH (08:21)
[2020-11-05] MEDS: FLUoxetine HCL 20 MG CAPSULE PO SCH (08:21)
[2020-11-05] MEDS: PHENYTOIN SODIUM 100 MG ER CAPSULE PO SCH (08:21)
[2020-11-05] MEDS: ARIPiprazole 15 MG TABLET PO SCH (08:21)
[2020-11-05] MEDS: OLANZapine 5 MG TABLET PO PRN ×2 (08:21→13:17)
[2020-11-05] MEDS: NICOTINE 14 MG/24 HOUR PATCH TD SCH (08:21)
[2020-11-05] MEDS: LORazepam 2 MG TABLET PO PRN ×3 (08:21→16:35)
[2020-11-05 08:49] VITALS: BP 97/46
[2020-11-05 16:00] VITALS: BP 108/74
[2020-11-05] MEDS: ZOLPIDEM TARTRATE 10 MG TABLET PO PRN (20:15)
[2020-11-06 02:45] VITALS: BP 136/58
[2020-11-06 05:54] VITALS: BP 132/50
[2020-11-06] MEDS: LEVOTHYROXINE SODIUM 125 MCG TABLET PO SCH (06:45)
[2020-11-06] MEDS: FERROUS SULFATE 325 MG EC TABLET PO SCH ×2 (06:45→16:40)
[2020-11-06] MEDS: OMEPRAZOLE 20 MG CAPSULE PO SCH (06:45)
[2020-11-06 08:05] VITALS: BP 120/91
[2020-11-06] MEDS: OLANZapine 5 MG TABLET PO PRN (09:59)
[2020-11-06] MEDS: PHENYTOIN SODIUM 100 MG ER CAPSULE PO SCH (09:59)
[2020-11-06] MEDS: LORazepam 2 MG TABLET PO PRN (09:59)
[2020-11-06] MEDS: ARIPiprazole 15 MG TABLET PO SCH (09:59)
[2020-11-06] MEDS: FLUoxetine HCL 20 MG CAPSULE PO SCH (09:59)
[2020-11-06] MEDS: FUROSEMIDE 20 MG TABLET PO SCH (09:59)
[2020-11-06] MEDS: NICOTINE 14 MG/24 HOUR PATCH TD SCH (09:59)
[2020-11-06 16:00] VITALS: BP 127/77
[2020-11-06] MEDS: ZOLPIDEM TARTRATE 10 MG TABLET PO PRN (20:21)
[2020-11-07] MEDS: FERROUS SULFATE 325 MG EC TABLET PO SCH ×2 (06:30→16:35)
[2020-11-07] MEDS: OMEPRAZOLE 20 MG CAPSULE PO SCH (06:30)
[2020-11-07] MEDS: LEVOTHYROXINE SODIUM 125 MCG TABLET PO SCH (06:30)
[2020-11-07 08:18] VITALS: BP 113/60
[2020-11-07] MEDS: PHENYTOIN SODIUM 100 MG ER CAPSULE PO SCH (10:21)
[2020-11-07] MEDS: ARIPiprazole 15 MG TABLET PO SCH (10:21)
[2020-11-07] MEDS: FLUoxetine HCL 20 MG CAPSULE PO SCH (10:21)
[2020-11-07] MEDS: FUROSEMIDE 20 MG TABLET PO SCH (10:22)
[2020-11-07] MEDS: NICOTINE 14 MG/24 HOUR PATCH TD SCH (10:22)
[2020-11-07 16:00] VITALS: BP 135/60
[2020-11-07] MEDS: LORazepam 2 MG TABLET PO PRN (16:35)
[2020-11-07] MEDS: ZOLPIDEM TARTRATE 10 MG TABLET PO PRN (20:07)
[2020-11-08] MEDS: LEVOTHYROXINE SODIUM 125 MCG TABLET PO SCH (06:54)
[2020-11-08] MEDS: FERROUS SULFATE 325 MG EC TABLET PO SCH ×2 (06:54→16:41)
[2020-11-08] MEDS: OMEPRAZOLE 20 MG CAPSULE PO SCH (06:54)
[2020-11-08] MEDS: ARIPiprazole 15 MG TABLET PO SCH (08:08)
[2020-11-08] MEDS: FLUoxetine HCL 20 MG CAPSULE PO SCH (08:09)
[2020-11-08] MEDS: FUROSEMIDE 20 MG TABLET PO SCH (08:09)
[2020-11-08] MEDS: PHENYTOIN SODIUM 100 MG ER CAPSULE PO SCH (08:09)
[2020-11-08] MEDS: LORazepam 2 MG TABLET PO PRN ×2 (08:11→16:41)
[2020-11-08] MEDS: NICOTINE 14 MG/24 HOUR PATCH TD SCH (08:15)
[2020-11-08 08:24] VITALS: BP 140/65
[2020-11-08] MEDS: OLANZapine 5 MG TABLET PO PRN (12:01)
[2020-11-08 16:00] VITALS: BP 146/60
[2020-11-08] MEDS: ZOLPIDEM TARTRATE 10 MG TABLET PO PRN (20:30)
[2020-11-09] MEDS: FERROUS SULFATE 325 MG EC TABLET PO SCH ×2 (06:24→16:43)
[2020-11-09] MEDS: LEVOTHYROXINE SODIUM 125 MCG TABLET PO SCH (06:24)
[2020-11-09] MEDS: OMEPRAZOLE 20 MG CAPSULE PO SCH (06:24)
[2020-11-09 08:11] VITALS: BP 126/69
[2020-11-09] MEDS: FUROSEMIDE 20 MG TABLET PO SCH (08:41)
[2020-11-09] MEDS: ARIPiprazole 15 MG TABLET PO SCH (08:41)
[2020-11-09] MEDS: FLUoxetine HCL 20 MG CAPSULE PO SCH (08:41)
[2020-11-09] MEDS: PHENYTOIN SODIUM 100 MG ER CAPSULE PO SCH (08:42)
[2020-11-09] MEDS: NICOTINE 14 MG/24 HOUR PATCH TD SCH (08:43)
[2020-11-09] MEDS: OLANZapine 5 MG TABLET PO PRN ×2 (08:44→19:47)
[2020-11-09] MEDS: LORazepam 2 MG TABLET PO PRN ×2 (08:44→16:43)
[2020-11-09 16:08] VITALS: BP 119/72
[2020-11-09] MEDS: ZOLPIDEM TARTRATE 10 MG TABLET PO PRN (20:47)
[2020-11-09 21:42] LABS: COVID AG,FIA SOURCE NASAL SWAB
[2020-11-10] MEDS: FERROUS SULFATE 325 MG EC TABLET PO SCH ×2 (06:11→16:02)
[2020-11-10] MEDS: OMEPRAZOLE 20 MG CAPSULE PO SCH (06:11)
[2020-11-10] MEDS: LEVOTHYROXINE SODIUM 125 MCG TABLET PO SCH (07:00)
[2020-11-10] MEDS: FLUoxetine HCL 20 MG CAPSULE PO SCH (09:07)
[2020-11-10] MEDS: NICOTINE 14 MG/24 HOUR PATCH TD SCH (09:07)
[2020-11-10] MEDS: FUROSEMIDE 20 MG TABLET PO SCH (09:07)
[2020-11-10] MEDS: ARIPiprazole 15 MG TABLET PO SCH (09:07)
[2020-11-10] MEDS: PHENYTOIN SODIUM 100 MG ER CAPSULE PO SCH (09:07)
[2020-11-10 09:43] VITALS: BP 106/63
[2020-11-10 16:30] VITALS: BP 108/58
[2020-11-10] MEDS: OLANZapine 5 MG TABLET PO PRN (16:35)
[2020-11-10] MEDS: ZOLPIDEM TARTRATE 10 MG TABLET PO PRN (20:46)
[2020-11-11] MEDS: FERROUS SULFATE 325 MG EC TABLET PO SCH ×2 (06:40→17:55)
[2020-11-11] MEDS: OMEPRAZOLE 20 MG CAPSULE PO SCH (06:41)
[2020-11-11] MEDS: LEVOTHYROXINE SODIUM 125 MCG TABLET PO SCH (06:41)
[2020-11-11 08:18] VITALS: BP 115/99
[2020-11-11] MEDS: MAGNESIUM HYDROXIDE SUSPENSION 30 ML UDCUP PO PRN (08:29)
[2020-11-11] MEDS: NICOTINE 14 MG/24 HOUR PATCH TD SCH (08:29)
[2020-11-11] MEDS: DOCUSATE SODIUM 100 MG CAPSULE PO PRN (08:29)
[2020-11-11] MEDS: FLUoxetine HCL 20 MG CAPSULE PO SCH (08:29)
[2020-11-11] MEDS: FUROSEMIDE 20 MG TABLET PO SCH (08:29)
[2020-11-11] MEDS: PHENYTOIN SODIUM 100 MG ER CAPSULE PO SCH (08:29)
[2020-11-11] MEDS: ARIPiprazole 15 MG TABLET PO SCH (08:29)
[2020-11-11 16:03] VITALS: BP 117/61
[2020-11-11] MEDS: OLANZapine 5 MG TABLET PO PRN (16:09)
[2020-11-11] MEDS: LORazepam 2 MG TABLET PO PRN (19:24)
[2020-11-11] MEDS: ZOLPIDEM TARTRATE 10 MG TABLET PO PRN (22:38)
[2020-11-12] MEDS: LEVOTHYROXINE SODIUM 125 MCG TABLET PO SCH (06:47)
[2020-11-12] MEDS: FERROUS SULFATE 325 MG EC TABLET PO SCH ×2 (06:47→16:27)
[2020-11-12] MEDS: OMEPRAZOLE 20 MG CAPSULE PO SCH (06:47)
[2020-11-12 08:11] VITALS: BP 128/54
[2020-11-12] MEDS: ARIPiprazole 15 MG TABLET PO SCH (08:11)
[2020-11-12] MEDS: LORazepam 2 MG TABLET PO PRN (08:11)
[2020-11-12] MEDS: PHENYTOIN SODIUM 100 MG ER CAPSULE PO SCH (08:12)
[2020-11-12] MEDS: FLUoxetine HCL 20 MG CAPSULE PO SCH (08:12)
[2020-11-12] MEDS: FUROSEMIDE 20 MG TABLET PO SCH (08:12)
[2020-11-12] MEDS: NICOTINE 14 MG/24 HOUR PATCH TD SCH (08:18)
[2020-11-12] MEDS: OLANZapine 5 MG TABLET PO PRN (12:52)
[2020-11-12 16:27] VITALS: BP 117/65
[2020-11-12] MEDS: ZOLPIDEM TARTRATE 10 MG TABLET PO PRN (20:09)
[2020-11-13] MEDS: LEVOTHYROXINE SODIUM 125 MCG TABLET PO SCH (06:48)
[2020-11-13] MEDS: FERROUS SULFATE 325 MG EC TABLET PO SCH ×2 (06:48→16:22)
[2020-11-13] MEDS: OMEPRAZOLE 20 MG CAPSULE PO SCH (06:48)
[2020-11-13 08:38] VITALS: BP 127/62
[2020-11-13] MEDS: ARIPiprazole 15 MG TABLET PO SCH (09:58)
[2020-11-13] MEDS: FUROSEMIDE 20 MG TABLET PO SCH (09:59)
[2020-11-13] MEDS: FLUoxetine HCL 20 MG CAPSULE PO SCH (09:59)
[2020-11-13] MEDS: PHENYTOIN SODIUM 100 MG ER CAPSULE PO SCH (09:59)
[2020-11-13] MEDS: NICOTINE 14 MG/24 HOUR PATCH TD SCH (09:59)
[2020-11-13 16:05] VITALS: BP 121/77
[2020-11-13] MEDS: ZOLPIDEM TARTRATE 10 MG TABLET PO PRN (22:20)
[2020-11-14] MEDS: LEVOTHYROXINE SODIUM 125 MCG TABLET PO SCH (06:49)
[2020-11-14] MEDS: FERROUS SULFATE 325 MG EC TABLET PO SCH ×2 (06:50→17:08)
[2020-11-14] MEDS: OMEPRAZOLE 20 MG CAPSULE PO SCH (06:50)
[2020-11-14 08:29] VITALS: BP 118/44
[2020-11-14] MEDS: FLUoxetine HCL 20 MG CAPSULE PO SCH (08:39)
[2020-11-14] MEDS: PHENYTOIN SODIUM 100 MG ER CAPSULE PO SCH (08:39)
[2020-11-14] MEDS: ARIPiprazole 15 MG TABLET PO SCH (08:39)
[2020-11-14] MEDS: FUROSEMIDE 20 MG TABLET PO SCH (08:40)
[2020-11-14] MEDS: NICOTINE 14 MG/24 HOUR PATCH TD SCH (08:43)
[2020-11-14] MEDS: OLANZapine 5 MG TABLET PO PRN ×2 (15:59→20:06)
[2020-11-14 16:50] VITALS: BP 108/60
[2020-11-14] MEDS: ZOLPIDEM TARTRATE 10 MG TABLET PO PRN (20:58)
[2020-11-15] MEDS: LEVOTHYROXINE SODIUM 125 MCG TABLET PO SCH (06:40)
[2020-11-15] MEDS: OMEPRAZOLE 20 MG CAPSULE PO SCH (06:40)
[2020-11-15] MEDS: FERROUS SULFATE 325 MG EC TABLET PO SCH ×2 (06:40→17:01)
[2020-11-15 08:16] VITALS: BP 150/90
[2020-11-15] MEDS: FLUoxetine HCL 20 MG CAPSULE PO SCH (09:43)
[2020-11-15] MEDS: FUROSEMIDE 20 MG TABLET PO SCH (09:43)
[2020-11-15] MEDS: PHENYTOIN SODIUM 100 MG ER CAPSULE PO SCH (09:43)
[2020-11-15] MEDS: NICOTINE 14 MG/24 HOUR PATCH TD SCH (09:43)
[2020-11-15] MEDS: ARIPiprazole 15 MG TABLET PO SCH (09:43)
[2020-11-15] MEDS: DOCUSATE SODIUM 100 MG CAPSULE PO PRN (09:58)
[2020-11-15] MEDS: MAGNESIUM HYDROXIDE SUSPENSION 30 ML UDCUP PO PRN (09:58)
[2020-11-15] MEDS: OLANZapine 5 MG TABLET PO PRN ×2 (15:43→22:31)
[2020-11-15 16:02] VITALS: BP_SYST 116; BP_SYST 117; BP_DIAS 62; BP_DIAS 79
[2020-11-15] MEDS: ZOLPIDEM TARTRATE 10 MG TABLET PO PRN (20:31)
[2020-11-16] MEDS: LEVOTHYROXINE SODIUM 125 MCG TABLET PO SCH (06:39)
[2020-11-16] MEDS: OMEPRAZOLE 20 MG CAPSULE PO SCH (06:40)
[2020-11-16] MEDS: FERROUS SULFATE 325 MG EC TABLET PO SCH ×2 (06:40→17:20)
[2020-11-16 08:03] VITALS: BP 138/90
[2020-11-16] MEDS: FLUoxetine HCL 20 MG CAPSULE PO SCH (11:01)
[2020-11-16] MEDS: FUROSEMIDE 20 MG TABLET PO SCH (11:01)
[2020-11-16] MEDS: PHENYTOIN SODIUM 100 MG ER CAPSULE PO SCH (11:02)
[2020-11-16] MEDS: ARIPiprazole 15 MG TABLET PO SCH (11:03)
[2020-11-16] MEDS: NICOTINE 14 MG/24 HOUR PATCH TD SCH (11:03)
[2020-11-16] MEDS: DOCUSATE SODIUM 100 MG CAPSULE PO PRN (14:02)
[2020-11-16] MEDS: MAGNESIUM HYDROXIDE SUSPENSION 30 ML UDCUP PO PRN (14:03)
[2020-11-16] MEDS: OLANZapine 5 MG TABLET PO PRN ×2 (16:01→20:31)
[2020-11-16 16:07] VITALS: BP 155/73
[2020-11-16] MEDS: ZOLPIDEM TARTRATE 10 MG TABLET PO PRN (20:31)
[2020-11-17] MEDS: OMEPRAZOLE 20 MG CAPSULE PO SCH (06:47)
[2020-11-17] MEDS: LEVOTHYROXINE SODIUM 125 MCG TABLET PO SCH (06:47)
[2020-11-17] MEDS: FERROUS SULFATE 325 MG EC TABLET PO SCH ×2 (06:48→16:18)
[2020-11-17 08:15] VITALS: BP 120/47
[2020-11-17] MEDS: PHENYTOIN SODIUM 100 MG ER CAPSULE PO SCH (08:30)
[2020-11-17] MEDS: FUROSEMIDE 20 MG TABLET PO SCH ×2 (08:30→10:09)
[2020-11-17] MEDS: ARIPiprazole 15 MG TABLET PO SCH ×2 (08:30→10:09)
[2020-11-17] MEDS: FLUoxetine HCL 20 MG CAPSULE PO SCH ×2 (08:31→10:09)
[2020-11-17] MEDS: LORazepam 2 MG TABLET PO PRN ×2 (08:31→10:10)
[2020-11-17] MEDS: OLANZapine 5 MG TABLET PO PRN (10:09)
[2020-11-17] MEDS: NICOTINE 14 MG/24 HOUR PATCH TD SCH (10:09)
[2020-11-17 16:11] VITALS: BP 124/60
[2020-11-17] MEDS: ZOLPIDEM TARTRATE 10 MG TABLET PO PRN (20:04)
[2020-11-18 02:40] VITALS: BP 124/53
[2020-11-18] MEDS: FERROUS SULFATE 325 MG EC TABLET PO SCH ×2 (06:54→16:12)
[2020-11-18] MEDS: OMEPRAZOLE 20 MG CAPSULE PO SCH (06:54)
[2020-11-18] MEDS: LEVOTHYROXINE SODIUM 125 MCG TABLET PO SCH (06:54)
[2020-11-18 08:13] VITALS: BP 125/68
[2020-11-18] MEDS: ARIPiprazole 15 MG TABLET PO SCH (08:37)
[2020-11-18] MEDS: FUROSEMIDE 20 MG TABLET PO SCH (08:37)
[2020-11-18] MEDS: PHENYTOIN SODIUM 100 MG ER CAPSULE PO SCH (08:37)
[2020-11-18] MEDS: NICOTINE 14 MG/24 HOUR PATCH TD SCH (08:37)
[2020-11-18] MEDS: FLUoxetine HCL 20 MG CAPSULE PO SCH (08:38)
[2020-11-18 13:42] LABS: COVID AG,FIA SOURCE NASOPHARYNGEAL
[2020-11-18 16:06] VITALS: BP 119/71
[2020-11-18] MEDS: ZOLPIDEM TARTRATE 10 MG TABLET PO PRN (20:12)
[2020-11-19] MEDS: LEVOTHYROXINE SODIUM 125 MCG TABLET PO SCH (06:50)
[2020-11-19] MEDS: FERROUS SULFATE 325 MG EC TABLET PO SCH ×2 (06:50→17:13)
[2020-11-19] MEDS: OMEPRAZOLE 20 MG CAPSULE PO SCH (06:50)
[2020-11-19 08:12] VITALS: BP 103/35
[2020-11-19] MEDS: PHENYTOIN SODIUM 100 MG ER CAPSULE PO SCH (09:37)
[2020-11-19] MEDS: NICOTINE 14 MG/24 HOUR PATCH TD SCH (09:37)
[2020-11-19] MEDS: ARIPiprazole 15 MG TABLET PO SCH (09:37)
[2020-11-19] MEDS: FLUoxetine HCL 20 MG CAPSULE PO SCH (09:37)
[2020-11-19] MEDS: FUROSEMIDE 20 MG TABLET PO SCH (09:38)
[2020-11-19] MEDS: OLANZapine 5 MG TABLET PO PRN ×3 (10:37→20:32)
[2020-11-19] MEDS: LORazepam 2 MG TABLET PO PRN (10:37)
[2020-11-19 16:00] VITALS: BP 126/65
[2020-11-19] MEDS: ZOLPIDEM TARTRATE 10 MG TABLET PO PRN (20:32)
[2020-11-20] MEDS: LEVOTHYROXINE SODIUM 125 MCG TABLET PO SCH (06:46)
[2020-11-20] MEDS: FERROUS SULFATE 325 MG EC TABLET PO SCH ×2 (06:46→16:07)
[2020-11-20] MEDS: OMEPRAZOLE 20 MG CAPSULE PO SCH (06:46)
[2020-11-20 08:13] VITALS: BP 109/56
[2020-11-20] MEDS: NICOTINE 14 MG/24 HOUR PATCH TD SCH (09:20)
[2020-11-20] MEDS: LORazepam 2 MG TABLET PO PRN (09:21)
[2020-11-20] MEDS: PHENYTOIN SODIUM 100 MG ER CAPSULE PO SCH (09:21)
[2020-11-20] MEDS: FUROSEMIDE 20 MG TABLET PO SCH (09:21)
[2020-11-20] MEDS: OLANZapine 5 MG TABLET PO PRN ×3 (09:21→20:06)
[2020-11-20] MEDS: FLUoxetine HCL 20 MG CAPSULE PO SCH (09:21)
[2020-11-20] MEDS: ARIPiprazole 15 MG TABLET PO SCH (09:21)
[2020-11-20 16:12] VITALS: BP 103/71
[2020-11-20] MEDS: ZOLPIDEM TARTRATE 10 MG TABLET PO PRN (20:05)
[2020-11-21] MEDS: OMEPRAZOLE 20 MG CAPSULE PO SCH (06:59)
[2020-11-21] MEDS: FERROUS SULFATE 325 MG EC TABLET PO SCH ×2 (06:59→17:28)
[2020-11-21] MEDS: LEVOTHYROXINE SODIUM 125 MCG TABLET PO SCH (06:59)
[2020-11-21] MEDS: NICOTINE 14 MG/24 HOUR PATCH TD SCH (08:00)
[2020-11-21] MEDS: ARIPiprazole 15 MG TABLET PO SCH (08:00)
[2020-11-21] MEDS: FLUoxetine HCL 20 MG CAPSULE PO SCH (08:00)
[2020-11-21] MEDS: PHENYTOIN SODIUM 100 MG ER CAPSULE PO SCH (08:01)
[2020-11-21] MEDS: FUROSEMIDE 20 MG TABLET PO SCH (08:01)
[2020-11-21 08:15] VITALS: BP 107/59
[2020-11-21] MEDS: OLANZapine 5 MG TABLET PO PRN ×2 (15:44→20:36)
[2020-11-21 16:14] VITALS: BP 124/68
[2020-11-21] MEDS: ZOLPIDEM TARTRATE 10 MG TABLET PO PRN (20:36)
[2020-11-22] MEDS: FERROUS SULFATE 325 MG EC TABLET PO SCH ×2 (06:52→17:34)
[2020-11-22] MEDS: LEVOTHYROXINE SODIUM 125 MCG TABLET PO SCH (06:52)
[2020-11-22] MEDS: OMEPRAZOLE 20 MG CAPSULE PO SCH (06:52)
[2020-11-22] MEDS: FUROSEMIDE 20 MG TABLET PO SCH (07:51)
[2020-11-22] MEDS: NICOTINE 14 MG/24 HOUR PATCH TD SCH (07:51)
[2020-11-22] MEDS: ARIPiprazole 15 MG TABLET PO SCH (07:51)
[2020-11-22] MEDS: FLUoxetine HCL 20 MG CAPSULE PO SCH (07:51)
[2020-11-22] MEDS: PHENYTOIN SODIUM 100 MG ER CAPSULE PO SCH (07:51)
[2020-11-22 08:11] VITALS: BP 111/56
[2020-11-22] MEDS: OLANZapine 5 MG TABLET PO PRN ×2 (15:55→20:06)
[2020-11-22 16:30] VITALS: BP 111/53
[2020-11-22] MEDS: ZOLPIDEM TARTRATE 10 MG TABLET PO PRN (20:06)
[2020-11-23] MEDS: LEVOTHYROXINE SODIUM 125 MCG TABLET PO SCH (06:54)
[2020-11-23] MEDS: OMEPRAZOLE 20 MG CAPSULE PO SCH (06:54)
[2020-11-23] MEDS: FERROUS SULFATE 325 MG EC TABLET PO SCH ×2 (06:54→16:52)
[2020-11-23 08:11] VITALS: BP 128/51
[2020-11-23] MEDS: FLUoxetine HCL 20 MG CAPSULE PO SCH (08:20)
[2020-11-23] MEDS: ARIPiprazole 15 MG TABLET PO SCH (08:20)
[2020-11-23] MEDS: PHENYTOIN SODIUM 100 MG ER CAPSULE PO SCH (08:20)
[2020-11-23] MEDS: FUROSEMIDE 20 MG TABLET PO SCH (08:20)
[2020-11-23] MEDS: NICOTINE 14 MG/24 HOUR PATCH TD SCH (08:22)
[2020-11-23 16:13] VITALS: BP 104/57
[2020-11-23] MEDS: ZOLPIDEM TARTRATE 10 MG TABLET PO PRN (20:40)
[2020-11-23] MEDS: LORazepam 2 MG TABLET PO PRN (20:40)
[2020-11-24] MEDS: OMEPRAZOLE 20 MG CAPSULE PO SCH (06:45)
[2020-11-24] MEDS: LEVOTHYROXINE SODIUM 125 MCG TABLET PO SCH (06:45)
[2020-11-24] MEDS: FERROUS SULFATE 325 MG EC TABLET PO SCH ×2 (06:45→17:25)
[2020-11-24] MEDS: NICOTINE 14 MG/24 HOUR PATCH TD SCH (07:59)
[2020-11-24] MEDS: ARIPiprazole 15 MG TABLET PO SCH (07:59)
[2020-11-24] MEDS: FLUoxetine HCL 20 MG CAPSULE PO SCH (07:59)
[2020-11-24] MEDS: PHENYTOIN SODIUM 100 MG ER CAPSULE PO SCH (07:59)
[2020-11-24] MEDS: FUROSEMIDE 20 MG TABLET PO SCH (07:59)
[2020-11-24 08:44] VITALS: BP 132/80
[2020-11-24] MEDS: OLANZapine 5 MG TABLET PO PRN ×2 (16:08→20:31)
[2020-11-24 16:15] VITALS: BP 123/72
[2020-11-24] MEDS: ZOLPIDEM TARTRATE 10 MG TABLET PO PRN (20:31)
[2020-11-25] MEDS: OMEPRAZOLE 20 MG CAPSULE PO SCH (06:39)
[2020-11-25] MEDS: LEVOTHYROXINE SODIUM 125 MCG TABLET PO SCH (06:39)
[2020-11-25] MEDS: FERROUS SULFATE 325 MG EC TABLET PO SCH ×2 (06:39→17:02)
[2020-11-25] MEDS: ARIPiprazole 15 MG TABLET PO SCH (08:00)
[2020-11-25] MEDS: FUROSEMIDE 20 MG TABLET PO SCH (08:01)
[2020-11-25] MEDS: FLUoxetine HCL 20 MG CAPSULE PO SCH (08:01)
[2020-11-25] MEDS: PHENYTOIN SODIUM 100 MG ER CAPSULE PO SCH (08:01)
[2020-11-25] MEDS: NICOTINE 14 MG/24 HOUR PATCH TD SCH (08:02)
[2020-11-25 10:07] VITALS: BP 136/67
[2020-11-25 15:09] LABS: COVID AG,FIA SOURCE NASOPHARYNGEAL
[2020-11-25 16:02] VITALS: BP 100/59
[2020-11-25] MEDS: OLANZapine 5 MG TABLET PO PRN ×2 (16:19→20:46)
[2020-11-25] MEDS: ZOLPIDEM TARTRATE 10 MG TABLET PO PRN (20:46)
[2020-11-26] MEDS: OMEPRAZOLE 20 MG CAPSULE PO SCH (06:34)
[2020-11-26] MEDS: LEVOTHYROXINE SODIUM 125 MCG TABLET PO SCH (06:34)
[2020-11-26] MEDS: FERROUS SULFATE 325 MG EC TABLET PO SCH ×2 (06:34→16:56)
[2020-11-26] MEDS: PHENYTOIN SODIUM 100 MG ER CAPSULE PO SCH (08:01)
[2020-11-26] MEDS: FUROSEMIDE 20 MG TABLET PO SCH (08:01)
[2020-11-26] MEDS: ARIPiprazole 15 MG TABLET PO SCH (08:01)
[2020-11-26] MEDS: FLUoxetine HCL 20 MG CAPSULE PO SCH (08:01)
[2020-11-26] MEDS: NICOTINE 14 MG/24 HOUR PATCH TD SCH (08:36)
[2020-11-26 08:51] VITALS: BP 125/68
[2020-11-26] MEDS: LORazepam 2 MG TABLET PO PRN ×2 (09:57→16:56)
[2020-11-26 17:01] VITALS: BP 122/67
[2020-11-27] MEDS: LEVOTHYROXINE SODIUM 125 MCG TABLET PO SCH (06:45)
[2020-11-27] MEDS: OMEPRAZOLE 20 MG CAPSULE PO SCH (06:45)
[2020-11-27] MEDS: FERROUS SULFATE 325 MG EC TABLET PO SCH ×2 (06:45→16:03)
[2020-11-27] MEDS: FLUoxetine HCL 20 MG CAPSULE PO SCH (08:40)
[2020-11-27] MEDS: ARIPiprazole 15 MG TABLET PO SCH (08:40)
[2020-11-27] MEDS: PHENYTOIN SODIUM 100 MG ER CAPSULE PO SCH (08:40)
[2020-11-27] MEDS: MAGNESIUM HYDROXIDE SUSPENSION 30 ML UDCUP PO PRN (08:40)
[2020-11-27] MEDS: FUROSEMIDE 20 MG TABLET PO SCH (08:40)
[2020-11-27] MEDS: DOCUSATE SODIUM 100 MG CAPSULE PO PRN (08:40)
[2020-11-27] MEDS: NICOTINE 14 MG/24 HOUR PATCH TD SCH (08:40)
[2020-11-27 08:42] VITALS: BP 124/98
[2020-11-27 16:00] VITALS: BP 135/71
[2020-11-27] MEDS: OLANZapine 5 MG TABLET PO PRN ×2 (16:03→20:26)
[2020-11-27] MEDS: ZOLPIDEM TARTRATE 10 MG TABLET PO PRN (20:26)
[2020-11-28] MEDS: LEVOTHYROXINE SODIUM 125 MCG TABLET PO SCH (06:41)
[2020-11-28] MEDS: OMEPRAZOLE 20 MG CAPSULE PO SCH (06:41)
[2020-11-28] MEDS: FERROUS SULFATE 325 MG EC TABLET PO SCH ×2 (06:42→16:16)
[2020-11-28 08:16] VITALS: BP 129/88
[2020-11-28] MEDS: ARIPiprazole 15 MG TABLET PO SCH (08:22)
[2020-11-28] MEDS: FLUoxetine HCL 20 MG CAPSULE PO SCH (08:23)
[2020-11-28] MEDS: PHENYTOIN SODIUM 100 MG ER CAPSULE PO SCH (08:23)
[2020-11-28] MEDS: FUROSEMIDE 20 MG TABLET PO SCH (08:26)
[2020-11-28] MEDS: NICOTINE 14 MG/24 HOUR PATCH TD SCH (08:26)
[2020-11-28 16:00] VITALS: BP 114/75
[2020-11-28] MEDS: LORazepam 2 MG TABLET PO PRN (16:16)
[2020-11-28] MEDS: ZOLPIDEM TARTRATE 10 MG TABLET PO PRN (20:18)
[2020-11-29] MEDS: FERROUS SULFATE 325 MG EC TABLET PO SCH ×2 (06:32→17:38)
[2020-11-29] MEDS: OMEPRAZOLE 20 MG CAPSULE PO SCH (06:32)
[2020-11-29] MEDS: LEVOTHYROXINE SODIUM 125 MCG TABLET PO SCH (06:32)
[2020-11-29 08:05] VITALS: BP 135/65
[2020-11-29] MEDS: FUROSEMIDE 20 MG TABLET PO SCH (08:18)
[2020-11-29] MEDS: PHENYTOIN SODIUM 100 MG ER CAPSULE PO SCH (08:19)
[2020-11-29] MEDS: FLUoxetine HCL 20 MG CAPSULE PO SCH (08:19)
[2020-11-29] MEDS: ARIPiprazole 15 MG TABLET PO SCH (08:19)
[2020-11-29] MEDS: NICOTINE 14 MG/24 HOUR PATCH TD SCH (08:19)
[2020-11-29 16:05] VITALS: BP 121/71
[2020-11-29] MEDS: OLANZapine 5 MG TABLET PO PRN ×2 (16:15→21:09)
[2020-11-29] MEDS: ZOLPIDEM TARTRATE 10 MG TABLET PO PRN (21:09)
[2020-11-30] MEDS: FERROUS SULFATE 325 MG EC TABLET PO SCH ×2 (06:34→17:52)
[2020-11-30] MEDS: LEVOTHYROXINE SODIUM 125 MCG TABLET PO SCH (06:34)
[2020-11-30] MEDS: OMEPRAZOLE 20 MG CAPSULE PO SCH (06:34)
[2020-11-30 08:11] VITALS: BP 129/65
[2020-11-30] MEDS: NICOTINE 14 MG/24 HOUR PATCH TD SCH (08:39)
[2020-11-30] MEDS: FLUoxetine HCL 20 MG CAPSULE PO SCH (08:41)
[2020-11-30] MEDS: FUROSEMIDE 20 MG TABLET PO SCH (08:41)
[2020-11-30] MEDS: PHENYTOIN SODIUM 100 MG ER CAPSULE PO SCH (08:41)
[2020-11-30] MEDS: ARIPiprazole 15 MG TABLET PO SCH (08:44)
[2020-11-30] MEDS: OLANZapine 5 MG TABLET PO PRN ×2 (15:42→20:49)
[2020-11-30 16:07] VITALS: BP 114/65
[2020-11-30] MEDS: ZOLPIDEM TARTRATE 10 MG TABLET PO PRN (20:49)
[2020-12-01] MEDS: LEVOTHYROXINE SODIUM 125 MCG TABLET PO SCH (06:45)
[2020-12-01] MEDS: OMEPRAZOLE 20 MG CAPSULE PO SCH (06:45)
[2020-12-01] MEDS: FERROUS SULFATE 325 MG EC TABLET PO SCH ×2 (06:45→16:36)
[2020-12-01] MEDS: FLUoxetine HCL 20 MG CAPSULE PO SCH (08:00)
[2020-12-01] MEDS: FUROSEMIDE 20 MG TABLET PO SCH (08:00)
[2020-12-01] MEDS: ARIPiprazole 15 MG TABLET PO SCH (08:00)
[2020-12-01] MEDS: PHENYTOIN SODIUM 100 MG ER CAPSULE PO SCH (08:00)
[2020-12-01] MEDS: NICOTINE 14 MG/24 HOUR PATCH TD SCH (08:01)
[2020-12-01 08:14] VITALS: BP 117/59
[2020-12-01 16:38] VITALS: BP 114/65
[2020-12-01] MEDS: ZOLPIDEM TARTRATE 10 MG TABLET PO PRN (20:35)
[2020-12-02] MEDS: FERROUS SULFATE 325 MG EC TABLET PO SCH ×2 (06:31→16:40)
[2020-12-02] MEDS: LEVOTHYROXINE SODIUM 125 MCG TABLET PO SCH (06:31)
[2020-12-02] MEDS: OMEPRAZOLE 20 MG CAPSULE PO SCH (06:31)
[2020-12-02] MEDS: FUROSEMIDE 20 MG TABLET PO SCH (08:26)
[2020-12-02] MEDS: PHENYTOIN SODIUM 100 MG ER CAPSULE PO SCH (08:26)
[2020-12-02] MEDS: FLUoxetine HCL 20 MG CAPSULE PO SCH (08:26)
[2020-12-02] MEDS: ARIPiprazole 15 MG TABLET PO SCH (08:26)
[2020-12-02] MEDS: NICOTINE 14 MG/24 HOUR PATCH TD SCH (08:27)
[2020-12-02 09:06] VITALS: BP 134/63
[2020-12-02 16:57] VITALS: BP 122/69
[2020-12-02] MEDS: ZOLPIDEM TARTRATE 10 MG TABLET PO PRN (20:11)
[2020-12-03] MEDS: LEVOTHYROXINE SODIUM 125 MCG TABLET PO SCH (06:36)
[2020-12-03] MEDS: OMEPRAZOLE 20 MG CAPSULE PO SCH (06:37)
[2020-12-03] MEDS: FERROUS SULFATE 325 MG EC TABLET PO SCH ×2 (06:37→16:32)
[2020-12-03 08:08] VITALS: BP 153/66
[2020-12-03] MEDS: FUROSEMIDE 20 MG TABLET PO SCH (08:30)
[2020-12-03] MEDS: PHENYTOIN SODIUM 100 MG ER CAPSULE PO SCH (08:30)
[2020-12-03] MEDS: ARIPiprazole 15 MG TABLET PO SCH (08:30)
[2020-12-03] MEDS: NICOTINE 14 MG/24 HOUR PATCH TD SCH (08:31)
[2020-12-03] MEDS: FLUoxetine HCL 20 MG CAPSULE PO SCH (08:31)
[2020-12-03 14:29] LABS: COVID AG,FIA SOURCE NASOPHARYNGEAL
[2020-12-03 16:14] VITALS: BP_SYST 131; BP_SYST 150; BP_DIAS 75; BP_DIAS 95
[2020-12-03] MEDS: ZOLPIDEM TARTRATE 10 MG TABLET PO PRN (21:19)
[2020-12-04] MEDS: OMEPRAZOLE 20 MG CAPSULE PO SCH (06:33)
[2020-12-04] MEDS: FERROUS SULFATE 325 MG EC TABLET PO SCH ×2 (06:33→16:37)
[2020-12-04] MEDS: LEVOTHYROXINE SODIUM 125 MCG TABLET PO SCH (06:34)
[2020-12-04 08:00] VITALS: BP 133/63
[2020-12-04] MEDS: FLUoxetine HCL 20 MG CAPSULE PO SCH (09:29)
[2020-12-04] MEDS: PHENYTOIN SODIUM 100 MG ER CAPSULE PO SCH (09:29)
[2020-12-04] MEDS: NICOTINE 14 MG/24 HOUR PATCH TD SCH (09:29)
[2020-12-04] MEDS: FUROSEMIDE 20 MG TABLET PO SCH (09:29)
[2020-12-04] MEDS: ARIPiprazole 15 MG TABLET PO SCH (09:29)
[2020-12-04 16:19] VITALS: BP 118/55
[2020-12-04] MEDS: ZOLPIDEM TARTRATE 10 MG TABLET PO PRN (22:30)
[2020-12-05] MEDS: OMEPRAZOLE 20 MG CAPSULE PO SCH (06:43)
[2020-12-05] MEDS: FERROUS SULFATE 325 MG EC TABLET PO SCH ×2 (06:44→18:56)
[2020-12-05] MEDS: LEVOTHYROXINE SODIUM 125 MCG TABLET PO SCH (06:44)
[2020-12-05 08:12] VITALS: BP 113/68
[2020-12-05] MEDS: FLUoxetine HCL 20 MG CAPSULE PO SCH (09:31)
[2020-12-05] MEDS: ARIPiprazole 15 MG TABLET PO SCH (09:31)
[2020-12-05] MEDS: PHENYTOIN SODIUM 100 MG ER CAPSULE PO SCH (09:31)
[2020-12-05] MEDS: FUROSEMIDE 20 MG TABLET PO SCH (09:31)
[2020-12-05] MEDS: NICOTINE 14 MG/24 HOUR PATCH TD SCH (09:32)
[2020-12-05] MEDS: OLANZapine 5 MG TABLET PO PRN ×2 (16:30→20:35)
[2020-12-05 16:32] VITALS: BP 118/69
[2020-12-05] MEDS: ZOLPIDEM TARTRATE 10 MG TABLET PO PRN (20:35)
[2020-12-06] MEDS: FERROUS SULFATE 325 MG EC TABLET PO SCH ×2 (06:34→17:53)
[2020-12-06] MEDS: OMEPRAZOLE 20 MG CAPSULE PO SCH (06:34)
[2020-12-06] MEDS: LEVOTHYROXINE SODIUM 125 MCG TABLET PO SCH (06:34)
[2020-12-06] MEDS: PHENYTOIN SODIUM 100 MG ER CAPSULE PO SCH (08:11)
[2020-12-06] MEDS: ARIPiprazole 15 MG TABLET PO SCH (08:11)
[2020-12-06] MEDS: FLUoxetine HCL 20 MG CAPSULE PO SCH (08:11)
[2020-12-06] MEDS: FUROSEMIDE 20 MG TABLET PO SCH (08:11)
[2020-12-06 08:12] VITALS: BP 128/60
[2020-12-06] MEDS: NICOTINE 14 MG/24 HOUR PATCH TD SCH (08:13)
[2020-12-06 16:17] VITALS: BP 122/64
[2020-12-06] MEDS: OLANZapine 5 MG TABLET PO PRN (20:32)
[2020-12-06] MEDS: ZOLPIDEM TARTRATE 10 MG TABLET PO PRN (20:32)
[2020-12-07] MEDS: OMEPRAZOLE 20 MG CAPSULE PO SCH (06:48)
[2020-12-07] MEDS: FERROUS SULFATE 325 MG EC TABLET PO SCH (06:48)
[2020-12-07] MEDS: LEVOTHYROXINE SODIUM 125 MCG TABLET PO SCH (06:48)
[2020-12-07 08:18] VITALS: BP 125/76
[2020-12-07] MEDS: PHENYTOIN SODIUM 100 MG ER CAPSULE PO SCH (09:20)
[2020-12-07] MEDS: ARIPiprazole 15 MG TABLET PO SCH (09:21)
[2020-12-07] MEDS: FLUoxetine HCL 20 MG CAPSULE PO SCH (09:21)
[2020-12-07] MEDS: FUROSEMIDE 20 MG TABLET PO SCH (09:21)
[2020-12-07] MEDS: NICOTINE 14 MG/24 HOUR PATCH TD SCH (09:21)
[2020-12-07] MEDS ORDERED: FLUO20CA36 PO (14:16)
[2020-12-07] MEDS ORDERED: LEVO125 PO (14:18)
[2020-12-07] MEDS ORDERED: OMEP20 PO (14:19)
== END 2020-12-07 15:00 | disposition home or self-care (01) | DRG 750 ==
LOC: EMS 18:41 → 3EC 10-22 17:05
PROVIDERS: ADMIT Psychiatry & Neurology Child & Adolescent Psychiatry; ATTEND Psychiatry & Neurology Child & Adolescent Psychiatry
DX: F25.1 Schizoaffective disorder, depressive type (principal); I13.0 Hypertensive heart and chronic kidney disease with heart failure and stage 1 through stage 4 chronic kidney disease, or unspecified chronic kidney disease; R45.851 Suicidal ideations; I50.9 Heart failure, unspecified; K74.60 Unspecified cirrhosis of liver; G40.909 Epilepsy, unspecified, not intractable, without status epilepticus; E03.9 Hypothyroidism, unspecified; F32.9 Major depressive disorder, single episode, unspecified; G47.00 Insomnia, unspecified; I25.10 Atherosclerotic heart disease of native coronary artery without angina pectoris; K59.00 Constipation, unspecified; N18.9 Chronic kidney disease, unspecified; R32 Unspecified urinary incontinence; Z59.00 Homelessness unspecified; Z86.73 Personal history of transient ischemic attack (TIA), and cerebral infarction without residual deficits; Z87.891 Personal history of nicotine dependence; Z91.19 Patient's noncompliance with other medical treatment and regimen; Z91.81 History of falling; Z88.0 Allergy status to penicillin; R74.01 Elevation of levels of liver transaminase levels; Z20.822 Contact with and (suspected) exposure to COVID-19
CPT/HCPCS: 70450; 71045; 80053; 80061; 80185; 81001; 82550; 83605; 83690; 83735; 84100; 84439; 84443; 84481; 84484; 85025; 85610; 85730; 87081; 93005; 96365; 97110; 97116; 97530; 99285; G0480; G0481; J2405; J3411; J3475; J3490; J7030; 36415-L1; 36415-TC

== ENCOUNTER 2020-12-14 22:48 | Emergency (ER) | payer MEDICAID, OTHER ==
[~2020-12-14] VITALS: Ht 172.7 cm; Wt 77.3 kg
[~2020-12-14 22:48] MED LIST changes: +FLUO20CA36 PO; -FLUO20SO2 PO; -LEVE500T20 PO; +LEVO125 PO; -LEVO125T95 PO; +OMEP20 PO; -PHEN100C23 PO
[2020-12-15 00:02] LABS: BASOPHILS % (AUTO) 1.2 % (0.0-2.0); EOSINOPHILS % (AUTO) 4.1 % (1.0-6.0); HEMATOCRIT 30.6 % (41-53); HEMOGLOBIN 10.3 g/dL (13.5-17.5); LYMPHOCYTES % (AUTO) 41.1 % (22.0-44.0); MEAN CORPUSCULAR HEMOGLOBIN 31.7 pg (26.0-34.0); MEAN CORPUSCULAR HGB CONC 33.8 G/dL (31.0-37.0); MEAN CORPUSCULAR VOLUME 94 fL (80-100); MONOCYTES # (AUTO) 0.4 K/uL (0.1-1.0); MONOCYTES % (AUTO) 5.2 % (2.0-9.0); NEUTROPHILS # (AUTO) 3.5 K/uL (1.8-7.7); NEUTROPHILS % (AUTO) 48.4 % (40.0-70.0); PLATELET COUNT (AUTO) 210 K/uL (150-450); RED BLOOD CELL COUNT(AUTO) 3.26 MIL/uL (4.50-5.90); RED CELL DISTRIBUTION WIDTH 14.9 % (11.5-14.5)
[2020-12-15 00:12] LABS: ANION GAP 11 mmol/L (8-16); CALCIUM, TOTAL 8.1 mg/dL (8.8-10.5); CARBON DIOXIDE 25 mmol/L (22-29); CHLORIDE 108 mmol/L (98-107); GLOMERULAR FILTR. RATE CALC > 60 mL/min (>60); GLUCOSE,RANDOM 85 mg/dL (70-110); POTASSIUM 3.6 mmol/L (3.5-5.1); SODIUM SERUM 144 mmol/L (136-145); UREA NITROGEN, BLOOD 17 mg/dL (7-18)
[2020-12-15 00:18] LABS: ALANINE AMINOTRANSFERASE 38 U/L (12-78); ALBUMIN 3.3 g/dL (3.4-5.0); ALKALINE PHOSPHATASE 136 U/L (46-116); ASPARTATE AMINOTRANSFERASE 23 U/L (15-37); BILIRUBIN,TOTAL 0.1 mg/dL (0.1-1.0); TOTAL PROTEIN, SERUM 7.2 g/dL (6.4-8.2)
[2020-12-15 00:26] LABS: PHENYTOIN (DILANTIN) 4.5 mcg/mL (10.0-20.0)
[2020-12-15 02:54] LABS: APPEARANCE,URINE CLEAR (CLEAR); BILIRUBIN,URINE NEGATIVE (NEGATIVE); GLUCOSE, URINE (UA) NEGATIVE (NEGATIVE); KETONES,URINE NEGATIVE (NEGATIVE); LEUKOCYTE ESTERASE ,URINE NEGATIVE (NEGATIVE); NITRATE,URINE NEGATIVE (NEGATIVE); OCCULT BLOOD,URINE NEGATIVE (NEGATIVE); PH,URINE 5.5 (5.0-8.0); PROTEIN,URINE NEGATIVE (NEGATIVE); UROBILINOGEN,URINE 0.2 mg/dL (<=1.0)
[2020-12-15 02:59] LABS: AMPHET/METH SCREEN,URINE NEGATIVE (NEGATIVE); BARBITURATE SCREEN, URINE NEGATIVE (NEGATIVE); BENZODIAZEPINES SCREEN,URINE NEGATIVE (NEGATIVE); CANNABINOID SCREEN,URINE NEGATIVE (NEGATIVE); COCAINE SCREEN,URINE NEGATIVE (NEGATIVE); METHADONE SCREEN, URINE NEGATIVE (NEGATIVE); OPIATE SCREEN,URINE NEGATIVE (NEGATIVE)
[2020-12-15 03:01] LABS: PHENCYCLIDINE SCREEN,URINE NEGATIVE (NEGATIVE)
[2020-12-15 03:02] LABS: BACTERIA,URINE None Seen /HPF (None Seen); RBC,URINE None Seen /HPF (0-2); WBC,URINE None Seen /HPF (0-5)
[2020-12-15 04:30] VITALS: BP 131/64
== END 2020-12-15 06:30 | disposition home or self-care (01) ==
LOC: EMS 22:53
DX: F10.129 Alcohol abuse with intoxication, unspecified (principal); I25.10 Atherosclerotic heart disease of native coronary artery without angina pectoris; F32.9 Major depressive disorder, single episode, unspecified; E78.00 Pure hypercholesterolemia, unspecified; I10 Essential (primary) hypertension; F17.210 Nicotine dependence, cigarettes, uncomplicated; F19.90 Other psychoactive substance use, unspecified, uncomplicated; Z79.899 Other long term (current) drug therapy; Z59.00 Homelessness unspecified; Y90.7 Blood alcohol level of 200-239 mg/100 ml
CPT/HCPCS: 36415; 80053; 80185; 80307; 81001; 85025; 93005; 99284; G0480

== ENCOUNTER 2021-04-16 18:46 | Inpatient (IN) | payer MEDICAID, OTHER ==
[~2021-04-16] VITALS: Ht 182.9 cm; Wt 82.6 kg
[2021-04-16] MEDS ORDERED: PHENY100 PO (20:24)
[2021-04-16 20:56] LABS: BASOPHILS % (AUTO) 0.8 % (0.0-2.0); EOSINOPHILS % (AUTO) 0.7 % (1.0-6.0); HEMATOCRIT 36.8 % (41-53); HEMOGLOBIN 12.3 g/dL (13.5-17.5); LYMPHOCYTES # (AUTO) 2.5 K/uL (1.0-4.8); LYMPHOCYTES % (AUTO) 30.3 % (22.0-44.0); MEAN CORPUSCULAR HEMOGLOBIN 29.7 pg (26.0-34.0); MEAN CORPUSCULAR HGB CONC 33.4 G/dL (31.0-37.0); MEAN CORPUSCULAR VOLUME 89 fL (80-100); MONOCYTES # (AUTO) 0.5 K/uL (0.1-1.0); MONOCYTES % (AUTO) 6.3 % (2.0-9.0); NEUTROPHILS # (AUTO) 5.1 K/uL (1.8-7.7); NEUTROPHILS % (AUTO) 61.9 % (40.0-70.0); PLATELET COUNT (AUTO) 242 K/uL (150-450); RED BLOOD CELL COUNT(AUTO) 4.14 MIL/uL (4.50-5.90); RED CELL DISTRIBUTION WIDTH 15.6 % (11.5-14.5)
[2021-04-16 21:07] LABS: ANION GAP 16 mmol/L (8-16); CALCIUM, TOTAL 9.2 mg/dL (8.8-10.5); CARBON DIOXIDE 21 mmol/L (22-29); CHLORIDE 102 mmol/L (98-107); GLOMERULAR FILTR. RATE CALC > 60 mL/min (>60); GLUCOSE,RANDOM 79 mg/dL (70-110); POTASSIUM 3.9 mmol/L (3.5-5.1); SODIUM SERUM 139 mmol/L (136-145); UREA NITROGEN, BLOOD 29 mg/dL (7-18)
[2021-04-16 21:13] LABS: ALANINE AMINOTRANSFERASE 35 U/L (12-78); ALBUMIN 4.3 g/dL (3.4-5.0); ALKALINE PHOSPHATASE 117 U/L (46-116); ASPARTATE AMINOTRANSFERASE 17 U/L (15-37); BILIRUBIN,TOTAL 0.3 mg/dL (0.1-1.0); PHENYTOIN (DILANTIN) 5.1 mcg/mL (10.0-20.0); TOTAL PROTEIN, SERUM 9.1 g/dL (6.4-8.2)
[2021-04-16 21:25] LABS: AMPHET/METH SCREEN,URINE NEGATIVE (NEGATIVE); BARBITURATE SCREEN, URINE NEGATIVE (NEGATIVE); BENZODIAZEPINES SCREEN,URINE NEGATIVE (NEGATIVE); CANNABINOID SCREEN,URINE NEGATIVE (NEGATIVE); COCAINE SCREEN,URINE NEGATIVE (NEGATIVE); METHADONE SCREEN, URINE NEGATIVE (NEGATIVE); OPIATE SCREEN,URINE NEGATIVE (NEGATIVE)
[2021-04-16 21:26] LABS: PHENCYCLIDINE SCREEN,URINE NEGATIVE (NEGATIVE)
[2021-04-17 04:22] LABS: APPEARANCE,URINE CLEAR (CLEAR); BILIRUBIN,URINE NEGATIVE (NEGATIVE); GLUCOSE, URINE (UA) NEGATIVE (NEGATIVE); KETONES,URINE NEGATIVE (NEGATIVE); LEUKOCYTE ESTERASE ,URINE NEGATIVE (NEGATIVE); NITRATE,URINE NEGATIVE (NEGATIVE); OCCULT BLOOD,URINE NEGATIVE (NEGATIVE); PH,URINE 5.5 (5.0-8.0); PROTEIN,URINE NEGATIVE (NEGATIVE); UROBILINOGEN,URINE 0.2 mg/dL (<=1.0)
[2021-04-17 04:29] LABS: CHOL/HDL RATIO 2.9 (4.2-7.3); CHOLESTEROL 196 mg/dL (131-200); HDL CHOLESTEROL 68 mg/dL (40-60); LDL CHOL (CALC.) 104 mg/dL (0-130); TRIGLYCERIDES 118 mg/dL (15-150)
[2021-04-17 06:10] LABS: COVID AG,FIA SOURCE NASOPHARYNGEAL
[2021-04-17 12:46] VITALS: BP 127/82
[2021-04-17] MEDS: NICOTINE 14 MG/24 HOUR PATCH TD SCH (13:04)
[2021-04-17] MEDS ORDERED: LOPERAMIDE HCL 2 MG CAPSULE PO PRN (13:45)
[2021-04-17] MEDS ORDERED: IBUPROFEN 400 MG TABLET PO PRN (13:45)
[2021-04-17] MEDS ORDERED: DOCUSATE SODIUM 100 MG CAPSULE PO PRN (13:45)
[2021-04-17] MEDS ORDERED: GuaiFENesin/D-METHORPHAN [SUGAR-FREE] 200-20MG/10 ML SYRUP UDCUP PO PRN (13:45)
[2021-04-17] MEDS ORDERED: PETROLATUM,WHITE 28 GM JELLY TP PRN (13:45)
[2021-04-17] MEDS ORDERED: CloNIDine HCL 0.1 MG TABLET PO PRN (13:45)
[2021-04-17] MEDS ORDERED: MAGNESIUM HYDROXIDE SUSPENSION 30 ML UDCUP PO PRN (13:45)
[2021-04-17] MEDS ORDERED: ONDANSETRON HCL 4 MG TABLET PO PRN (13:45)
[2021-04-17] MEDS ORDERED: ALBUTEROL SULFATE HFA 90 MCG/PUFF 8 GM INHALER IH PRN (13:45)
[2021-04-17] MEDS ORDERED: NICOTINE 14 MG/24 HOUR PATCH TD PRN (13:45)
[2021-04-17] MEDS ORDERED: MAG HYDROX/AL HYDROX/SIMETH ES 30 ML SUSPENSION UDCUP PO PRN (13:45)
[2021-04-17] MEDS: LORazepam 2 MG TABLET PO PRN ×2 (14:16→18:25)
[2021-04-17 16:11] VITALS: BP 135/73
[2021-04-17] MEDS: FERROUS SULFATE 325 MG EC TABLET PO SCH (17:05)
[2021-04-17] MEDS: PHENYTOIN SODIUM 100 MG ER CAPSULE PO SCH (20:46)
[2021-04-17] MEDS: ZOLPIDEM TARTRATE 10 MG TABLET PO PRN (21:50)
[2021-04-18 00:26] VITALS: BP 132/75
[2021-04-18] MEDS: OMEPRAZOLE 20 MG CAPSULE PO SCH (06:19)
[2021-04-18] MEDS: LEVOTHYROXINE SODIUM 125 MCG TABLET PO SCH (06:19)
[2021-04-18] MEDS: FERROUS SULFATE 325 MG EC TABLET PO SCH ×2 (06:19→16:45)
[2021-04-18] MEDS: LORazepam 2 MG TABLET PO PRN ×3 (08:30→18:34)
[2021-04-18] MEDS: FUROSEMIDE 20 MG TABLET PO SCH (08:36)
[2021-04-18] MEDS: NICOTINE 14 MG/24 HOUR PATCH TD SCH (08:36)
[2021-04-18 08:54] VITALS: BP 118/68
[2021-04-18] MEDS: PHENYTOIN SODIUM 100 MG ER CAPSULE PO SCH ×2 (09:13→20:25)
[2021-04-18] MEDS: HALOPERIDOL 5 MG TABLET PO PRN (13:55)
[2021-04-18 16:01] VITALS: BP 148/74
[2021-04-18] MEDS: FLUoxetine HCL 20 MG CAPSULE PO SCH (16:45)
[2021-04-18] MEDS: ARIPiprazole 15 MG TABLET PO SCH (16:45)
[2021-04-18 20:45] VITALS: BP 133/61
[2021-04-18] MEDS: ZOLPIDEM TARTRATE 10 MG TABLET PO PRN (20:45)
[2021-04-19 00:25] VITALS: BP 139/82
[2021-04-19] MEDS: OMEPRAZOLE 20 MG CAPSULE PO SCH (06:43)
[2021-04-19] MEDS: FERROUS SULFATE 325 MG EC TABLET PO SCH ×2 (06:43→17:01)
[2021-04-19] MEDS: LEVOTHYROXINE SODIUM 125 MCG TABLET PO SCH (06:43)
[2021-04-19] MEDS: PHENYTOIN SODIUM 100 MG ER CAPSULE PO SCH ×2 (08:07→20:11)
[2021-04-19] MEDS: FLUoxetine HCL 20 MG CAPSULE PO SCH (08:07)
[2021-04-19] MEDS: FUROSEMIDE 20 MG TABLET PO SCH (08:07)
[2021-04-19] MEDS: ARIPiprazole 15 MG TABLET PO SCH (08:07)
[2021-04-19] MEDS: NICOTINE 14 MG/24 HOUR PATCH TD SCH (08:08)
[2021-04-19 08:13] VITALS: BP 124/65
[2021-04-19] MEDS: LORazepam 2 MG TABLET PO PRN (09:29)
[2021-04-19 10:23] VITALS: BP 142/88
[2021-04-19 16:02] VITALS: BP 138/71
[2021-04-19] MEDS: ZOLPIDEM TARTRATE 10 MG TABLET PO PRN (20:11)
[2021-04-19] MEDS: HALOPERIDOL 5 MG TABLET PO PRN (23:02)
[2021-04-20] MEDS: ACETAMINOPHEN 325 MG TABLET PO PRN (00:16)
[2021-04-20 00:54] VITALS: BP 139/76
[2021-04-20] MEDS: FERROUS SULFATE 325 MG EC TABLET PO SCH ×2 (06:25→16:52)
[2021-04-20] MEDS: OMEPRAZOLE 20 MG CAPSULE PO SCH (06:25)
[2021-04-20] MEDS: LEVOTHYROXINE SODIUM 125 MCG TABLET PO SCH (06:25)
[2021-04-20 09:22] VITALS: BP 117/60
[2021-04-20] MEDS: FUROSEMIDE 20 MG TABLET PO SCH (09:54)
[2021-04-20] MEDS: ARIPiprazole 15 MG TABLET PO SCH (09:55)
[2021-04-20] MEDS: PHENYTOIN SODIUM 100 MG ER CAPSULE PO SCH ×2 (09:55→20:05)
[2021-04-20] MEDS: NICOTINE 14 MG/24 HOUR PATCH TD SCH (09:55)
[2021-04-20] MEDS: FLUoxetine HCL 20 MG CAPSULE PO SCH (09:55)
[2021-04-20] MEDS: HALOPERIDOL 5 MG TABLET PO PRN (11:00)
[2021-04-20] MEDS ORDERED: LORazepam 2 MG TABLET PO PRN (14:45)
[2021-04-20 16:11] VITALS: BP 114/65
[2021-04-20 16:25] VITALS: BP 114/65
[2021-04-20] MEDS: ZOLPIDEM TARTRATE 10 MG TABLET PO PRN (21:14)
[2021-04-21 00:43] VITALS: BP 120/68
[2021-04-21 02:17] VITALS: BP 117/71
[2021-04-21] MEDS: LEVOTHYROXINE SODIUM 125 MCG TABLET PO SCH (06:07)
[2021-04-21] MEDS: OMEPRAZOLE 20 MG CAPSULE PO SCH (06:07)
[2021-04-21] MEDS: FERROUS SULFATE 325 MG EC TABLET PO SCH ×2 (06:36→16:27)
[2021-04-21 08:30] VITALS: BP 142/70
[2021-04-21] MEDS: PHENYTOIN SODIUM 100 MG ER CAPSULE PO SCH ×2 (08:39→20:35)
[2021-04-21] MEDS: ARIPiprazole 15 MG TABLET PO SCH (08:39)
[2021-04-21] MEDS: FLUoxetine HCL 20 MG CAPSULE PO SCH (08:40)
[2021-04-21] MEDS: FUROSEMIDE 20 MG TABLET PO SCH (08:40)
[2021-04-21] MEDS: NICOTINE 14 MG/24 HOUR PATCH TD SCH (08:52)
[2021-04-21] MEDS ORDERED: LORazepam 1 MG TABLET PO PRN (15:25)
[2021-04-21 16:07] VITALS: BP 117/68
[2021-04-21] MEDS: ACETAMINOPHEN 325 MG TABLET PO PRN (16:28)
[2021-04-21] MEDS: ZOLPIDEM TARTRATE 10 MG TABLET PO PRN (20:44)
[2021-04-22 01:03] VITALS: BP 106/68
[2021-04-22 01:30] VITALS: BP 106/68
[2021-04-22] MEDS: LEVOTHYROXINE SODIUM 125 MCG TABLET PO SCH (06:21)
[2021-04-22] MEDS: OMEPRAZOLE 20 MG CAPSULE PO SCH (06:21)
[2021-04-22] MEDS: FERROUS SULFATE 325 MG EC TABLET PO SCH ×2 (06:52→16:01)
[2021-04-22] MEDS: PHENYTOIN SODIUM 100 MG ER CAPSULE PO SCH (08:04)
[2021-04-22] MEDS: ARIPiprazole 15 MG TABLET PO SCH (08:04)
[2021-04-22] MEDS: NICOTINE 14 MG/24 HOUR PATCH TD SCH (08:04)
[2021-04-22] MEDS: FUROSEMIDE 20 MG TABLET PO SCH (08:04)
[2021-04-22] MEDS: FLUoxetine HCL 20 MG CAPSULE PO SCH (08:04)
[2021-04-22 08:21] VITALS: BP 137/62
[2021-04-22 11:31] LABS: GLUCOMETER DEV NAME(LOC) POC.BV
[2021-04-22] MEDS ORDERED: PROZ20 PO (11:43)
[2021-04-22] MEDS ORDERED: ARIP15TA27 PO (11:43)
[2021-04-22] MEDS: ACETAMINOPHEN 325 MG TABLET PO PRN (16:00)
== END 2021-04-22 21:22 | disposition home or self-care (01) | DRG 750 ==
LOC: EMS 18:51 → B2S 04-17 08:35
PROVIDERS: ADMIT Psychiatry & Neurology Child & Adolescent Psychiatry; ATTEND Psychiatry & Neurology Child & Adolescent Psychiatry
DX: F25.1 Schizoaffective disorder, depressive type (principal); K74.60 Unspecified cirrhosis of liver; R45.851 Suicidal ideations; G40.909 Epilepsy, unspecified, not intractable, without status epilepticus; E03.9 Hypothyroidism, unspecified; D64.9 Anemia, unspecified; E78.5 Hyperlipidemia, unspecified; F10.10 Alcohol abuse, uncomplicated; I10 Essential (primary) hypertension; Z20.822 Contact with and (suspected) exposure to COVID-19; F19.10 Other psychoactive substance abuse, uncomplicated; I25.10 Atherosclerotic heart disease of native coronary artery without angina pectoris; K21.9 Gastro-esophageal reflux disease without esophagitis; F17.210 Nicotine dependence, cigarettes, uncomplicated; E78.00 Pure hypercholesterolemia, unspecified; Z88.0 Allergy status to penicillin; Z59.00 Homelessness unspecified; Z91.51 Personal history of suicidal behavior; Z79.899 Other long term (current) drug therapy; Z71.51 Drug abuse counseling and surveillance of drug abuser
CPT/HCPCS: 80053; 80061; 80185; 81003; 85025; 99285; G0480; J3535